=== PATIENT | female | born 1995 | race Caucasian/White ===

== ENCOUNTER 2021-02-19 06:52 | Emergency (ER) | payer MEDICAID, SELFPAY ==
[2021-02-19 07:22] VITALS: BP 127/79; BP 133/79; PULSE 71; PULSE 74; RESP 16; TEMP 36.9; O2SAT 100; O2SAT 97; BMI 40.3
--- NOTE | 2021-02-19 07:35 | ECG_ITS ---
Test Reason : CHECK CARDIAC STATUS Blood Pressure : / mmHG Vent. Rate : 067 BPM Atrial Rate : 067 BPM P-R Int : 174 ms QRS Dur : 074 ms QT Int : 422 ms P-R-T Axes : 069 048 027 degrees QTc Int : 445 ms Sinus rhythm with marked sinus arrhythmia Septal infarct , age undetermined Abnormal ECG When compared with ECG of 02-DEC-2019 13:07, No significant change was found Referred By: Fozia Randolph Electronically Signed By:BYRON SALDANA
--- NOTE | 2021-02-19 07:36 | ED.OVERDOSE ---
HPI - Overdose General Chief Complaint: Overdose Stated Complaint: SUBSTANCE ABUSE Time Seen by Provider: 02/19/21 07:34 Source: patient Mode of arrival: EMS History of Present Illness HPI Narrative: 25-year-old female with history of asthma, PTSD, depression, anxiety, ADHD presents via EMS after she called when she impulsively decided to by 1g of cocaine and snorted in addition to crushing 1 of her 150 mg Wellbutrin tablets and snorting that as well. Patient states that it was an impulsive action and that she was frustrated that everything was going well for others and normal for her. Patient sources that she was recently admitted in [place] and then has been having difficulty with her job understanding her struggles with her mental condition. Related Data Home Medications Medication Instructions Recorded Confirmed hydroxyzine HCl 10 mg tablet 10 mg PO TID PRN 02/19/21 02/19/21 trazodone 100 mg PO BEDTIME 02/19/21 02/19/21 Allergies Allergy/AdvReac Type Severity Reaction Status Date / Time No Known Allergies Allergy Verified 02/19/21 07:22 [No Known Allergies*] Review of Systems Review of Systems: Pertinent positives and negatives as stated in HPI 10 point review systems is otherwise negative. PMFSH Past Medical History Source: nursing notes reviewed Medical History Anxiety Depression PTSD (post-traumatic stress disorder) Substance abuse Social History Social History Alcohol intake: never Patient Tobacco Use Status: Current everyday Tobacco user Use of substances other than those prescribed or required for medical reasons: Yes Substance Use Type: Crack/Cocaine and Marijuana Advance Directives: No Advance Directives Information Provided: No Patient : No (unknown) Physical Exam Vital Signs: Vital Signs: Last Vital Signs Temp 98.4 F 02/19/21 07:22 Pulse 71 02/19/21 07:22 Resp 16 02/19/21 07:22 BP 133/79 02/19/21 07:22 Pulse Ox 100 02/19/21 07:22 Body Mass Index 40.3 VITAL SIGNS: Reviewed. GENERAL: Well developed, well nourished, in no acute distress. HEAD: Normocephalic/atraumatic EYES: PERRLA, EOMI EARS: Ext canals without abnormality NOSE: Nares patent bilateral OROPHARYNX: no oral lesions noted, posterior pharynx clear and non-erythematous without noted tonsillar enlargement/erythema/exudates NECK: Supple, no adenopathy LUNGS: Normal breath sounds. No adventitious sounds or accessory muscle use. SpO2<100> CARDIOVASCULAR: Regular rate and rhythm without noted murmurs ABDOMEN: Soft, non-tender, non-distended with bowel sounds. MUSCULOSKELETAL: No tenderness, deformities, or effusions noted on gross inspection. EXTREMITIES: No cyanosis, clubbing or edema. SKIN: Inspection of the skin reveals no rashes NEUROLOGIC: Alert and oriented x 4. Strength and sensation to light touch were grossly intact x 4. Course Course Course Narrative: 25-year-old female with history and clinical presentation consistent with precipitous decision to purchase and use 1 g of cocaine as well as 1 tablet of her 150 mg Wellbutrin by snorting. Although patient denies suicidal ideation there is significant concern regarding patient's decision making and in light of the fact that she did not reach out to any of her outpatient resources (psychiatrist, therapist). I discussed my concerns with the patient and she has agreed to speak with the crisis team and be further evaluated for any existing concerns. Patient is otherwise medically cleared, although pending further recommendations from poison Control. I discussed the case with the CARE team who also discussed with the on-call psychiatrist regarding patient's behaviors, presentation, and current state of mind and in agreement that patient does not meet criteria for imminent harm, but clearly have some concerns and patient has stated that she will follow-up with her outpatient resources. Patient has both a therapist as well as a psychiatrist and she was strongly encouraged to follow-up with them on Sunday morning. She is otherwise discharged in stable condition for follow-up. Patient continues to deny suicidal ideation. Reevaluation(s) Reevaluation #1: Patient placed in physician observation because the patient needed more time for evaluation by the care team. At the time observation was started the patient's vital signs were stable, patient is alert and oriented but slightly, neuro: Nonfocal, CV RRR, lungs clear Time: 08:49 Reevaluation #2: Position observation and. Patient seen and cleared by the care team. Plan is to follow-up with her therapist and psychiatrist. Any D, lungs clear, CV RRR are, abdominal nontender, neuro intact. Disposition is for home. Time: 11:51 MDM - Overdose Lab Data Result diagrams: 02/19/21 07:59 02/19/21 07:59 Labs: Lab Results 02/19/21 02/19/21 02/19/21 Range/Units 07:59 07:59 07:59 WBC 7.0 (4.8-10.8) X10*3/uL RBC 4.04 L (4.20-5.50) X10*6/uL Hgb 12.6 (12.0-16.0) g/dl Hct 35.5 L (37-47) % MCV 87.9 (80-98) fL MCH 31.2 (27.0-33.0) pg MCHC 35.5 H (31.0-35.0) g/dl RDW 11.5 (11.0-16.0) % Plt Count 310 (160-400) X10*3/uL MPV 9.6 (9.4-12.3) fL Immature Gran % (Auto) 0.3 (0.0-0.4) % Neut % (Auto) 60.0 (45-73) % Lymph % (Auto) 29.1 (20-40) % [place] % (Auto) 6.5 (2-11) % Eos % (Auto) 3.4 (0-4) % Baso % (Auto) 0.7 (0-2) % Lymph # (Auto) 2.0 (1.2-4.9) X10*3/uL [place] # (Auto) 0.5 (0.1-1.2) X10*3/uL Eos # (Auto) 0.2 (0.0-0.4) X10*3/uL Baso # (Auto) 0.1 (0.0-0.2) X10*3/uL Abs Immat Gran (auto) 0.02 (0.00-0.03) X10*3/uL Absolute Neuts (auto) 4.2 (2.0-8.3) X10*3/uL Absolute Nucleated RBC 0.000 (0.0-0.012) X10*3/uL Nucleated RBC % (auto) 0.0 (0.0-0.2) /100WBC Sodium 136 (135-145) mmol/L Potassium 3.6 (3.3-5.1) mmol/L Chloride 107 (96-108) mmol/L Carbon Dioxide 20 L (22-29) mmol/L Anion Gap 13 (12-20) BUN 12 (9-16) mg/dL Creatinine 0.59 (0.5-1.4) mg/dL Estim Creat Clear Calc 183.0 Estimated GFR > 60 Random Glucose 86 (60-115) mg/dL Calcium 9.2 (8.4-10.2) mg/dL Magnesium 1.8 (1.6-2.6) mg/dL Total Bilirubin 0.6 (0.0-1.0) mg/dL AST 12 (5-31) U/L ALT 7 (0-31) U/L Alkaline Phosphatase 50 (39-117) U/L Total Protein 6.2 L (6.5-8.0) g/dL Albumin 3.9 (3.5-5.0) g/dL Urine Color Urine Appearance Urine pH (5.0-8.0) Ur Specific [place] (1.005-1.025) Urine Protein (NEG-TRACE) MG/DL Urine Glucose (UA) (NEG) MG/DL Urine Ketones (NEG) MG/DL Urine Blood (NEG) Urine Nitrite (NEG) Ur Leukocyte Esterase (NEG) Urine RBC (0) /HPF Urine WBC (0-4) /HPF Ur Squamous Epith Cells /LPF Urine Bacteria /LPF Urine Mucus /LPF Urine Test (NEGATIVE) Salicylates < 5.0 L (15-30) mg/dL Urine Opiates Screen (Not Detect) Urine Fentanyl Screen (Not Detect) Acetaminophen < 1 (<30) mcg/mL Ur Barbiturates Screen (Not Detect) Ur Phencyclidine Scrn (Not Detect) Ur Amphetamines Screen (Not Detect) U Benzodiazepines Scrn (Not Detect) Urine Cocaine Screen (Not Detect) U Marijuana (THC) Screen (Not Detect) 02/19/21 02/19/21 02/19/21 Range/Units 07:59 07:59 07:59 WBC (4.8-10.8) X10*3/uL RBC (4.20-5.50) X10*6/uL Hgb (12.0-16.0) g/dl Hct (37-47) % MCV (80-98) fL MCH (27.0-33.0) pg MCHC (31.0-35.0) g/dl RDW (11.0-16.0) % Plt Count (160-400) X10*3/uL MPV (9.4-12.3) fL Immature Gran % (Auto) (0.0-0.4) % Neut % (Auto) (45-73) % Lymph % (Auto) (20-40) % [place] % (Auto) (2-11) % Eos % (Auto) (0-4) % Baso % (Auto) (0-2) % Lymph # (Auto) (1.2-4.9) X10*3/uL [place] # (Auto) (0.1-1.2) X10*3/uL Eos # (Auto) (0.0-0.4) X10*3/uL Baso # (Auto) (0.0-0.2) X10*3/uL Abs Immat Gran (auto) (0.00-0.03) X10*3/uL Absolute Neuts (auto) (2.0-8.3) X10*3/uL Absolute Nucleated RBC (0.0-0.012) X10*3/uL Nucleated RBC % (auto) (0.0-0.2) /100WBC Sodium (135-145) mmol/L Potassium (3.3-5.1) mmol/L Chloride (96-108) mmol/L Carbon Dioxide (22-29) mmol/L Anion Gap (12-20) BUN (9-16) mg/dL Creatinine (0.5-1.4) mg/dL Estim Creat Clear Calc Estimated GFR Random Glucose (60-115) mg/dL Calcium (8.4-10.2) mg/dL Magnesium (1.6-2.6) mg/dL Total Bilirubin (0.0-1.0) mg/dL AST (5-31) U/L ALT (0-31) U/L Alkaline Phosphatase (39-117) U/L Total Protein (6.5-8.0) g/dL Albumin (3.5-5.0) g/dL Urine Color STRAW Urine Appearance CLEAR Urine pH 7.0 (5.0-8.0) Ur Specific [place] <= 1.005 (1.005-1.025) Urine Protein NEG (NEG-TRACE) MG/DL Urine Glucose (UA) NEG (NEG) MG/DL Urine Ketones 15 (NEG) MG/DL Urine Blood TRACE (NEG) Urine Nitrite NEG (NEG) Ur Leukocyte Esterase NEG (NEG) Urine RBC 1-4 (0) /HPF Urine WBC 0-2 (0-4) /HPF Ur Squamous Epith Cells TRACE /LPF Urine Bacteria NONE /LPF Urine Mucus TRACE /LPF Urine Test NEGATIVE (NEGATIVE) Salicylates (15-30) mg/dL Urine Opiates Screen Not Detected (Not Detect) Urine Fentanyl Screen Not Detected (Not Detect) Acetaminophen (<30) mcg/mL Ur Barbiturates Screen Not Detected (Not Detect) Ur Phencyclidine Scrn Not Detected (Not Detect) Ur Amphetamines Screen Not Detected (Not Detect) U Benzodiazepines Scrn Not Detected (Not Detect) Urine Cocaine Screen POSITIVE H (Not Detect) U Marijuana (THC) Screen Not Detected (Not Detect) ECG Data Attestation: I personally reviewed and interpreted this ECG as follows: Prior ECG tracings: available for review (12/02/2019 no acute changes on comparison) Interpretation: Sinus rhythm with marked sinus arrhythmia, HR-67, no STEMI, CT/QRS/QTC are within normal limits. Discharge Plan Discharge Clinical Impression: Cocaine use, Accidental drug ingestion Patient Disposition: Home, Self-Care Instructions: Cocaine Abuse (ED) Additional Instructions: 1. Resume medications as prescribed and avoid all other illicit drug use to include cocaine. 2. Follow-up with your therapist and/or psychiatrist on Sunday morning for re-evaluation. Please do not hesitate to return to the emergency room should you start to feel overwhelmed, having thoughts of wanting to harm yourself. Prescriptions: No Action hydroxyzine HCl 10 mg Tablet 10 mg PO TID PRN (Reason: Anxiety) RF: 0 trazodone 100 mg PO BEDTIME RF: 0 Referrals: Physician,Unknown [Primary Care Provider] - 2 days
[2021-02-19 08:05] LABS: MANUAL DIFF FLAG NO
[2021-02-19 08:09] LABS: Appearance Urine CLEAR; Basophils Absolute Auto 0.1 X10*3/uL (0.0-0.2); Basophils Percent Auto 0.7 % (0-2); Color Urine STRAW; Eosinophils Absolute Auto 0.2 X10*3/uL (0.0-0.4); Eosinophils Percent Auto 3.4 % (0-4); Glucose Urine UA NEG (NEG); Hematocrit 35.5 % (37-47); Hemoglobin 12.6 g/dl (12.0-16.0); Imm Gran Abs Auto 0.02 X10*3/uL (0.00-0.03); Imm Gran Pct Auto 0.3 % (0.0-0.4); Leukocyte Esterase Urine NEG (NEG); Lymphocytes Percent Auto 29.1 % (20-40); Mean Corpuscular HGB Conc 35.5 g/dl (31.0-35.0); Mean Corpuscular Hemoglobin 31.2 pg (27.0-33.0); Mean Corpuscular Volume 87.9 fL (80-98); Mean Platelet Volume 9.6 fL (9.4-12.3); Monocytes Absolute Auto 0.5 X10*3/uL (0.1-1.2); Monocytes Percent Auto 6.5 % (2-11); Neutrophils Absolute Auto 4.2 X10*3/uL (2.0-8.3); Nitrite Urine NEG (NEG); Platelet Count 310 X10*3/uL (160-400); Red Blood Count 4.04 X10*6/uL (4.20-5.50); Red Cell Distribution Width 11.5 % (11.0-16.0); Specific Gravity - Urine <= 1.005 (1.005-1.025); UACC Culture Trigger NO; Urine Blood TRACE (NEG); Urine Ketones 15 MG/DL (NEG); Urine Protein NEG (NEG-TRACE)
[2021-02-19 08:12] LABS: UPreg QC Valid YES; Urine Pregnancy NEGATIVE (NEGATIVE)
[2021-02-19 08:18] LABS: Mucus Urine TRACE /LPF; Squamous Epithelial Cell Urine TRACE /LPF; WBC Urine 0-2 /HPF (0-4)
[2021-02-19 08:22] LABS: Alanine Aminotransferase 7 U/L (0-31); Albumin Level 3.9 g/dL (3.5-5.0); Alkaline Phosphatase 50 U/L (39-117); Anion Gap 13 (12-20); Aspartate Amino Transferase 12 U/L (5-31); Bilirubin Total 0.6 mg/dL (0.0-1.0); Blood Urea Nitrogen 12 mg/dL (9-16); Calcium 9.2 mg/dL (8.4-10.2); Carbon Dioxide 20 mmol/L (22-29); Chloride 107 mmol/L (96-108); Estimated Glomerular Filt Rate > 60; Glucose Random 86 mg/dL (60-115); Magnesium 1.8 mg/dL (1.6-2.6); Potassium 3.6 mmol/L (3.3-5.1); Sodium 136 mmol/L (135-145); Total Protein 6.2 g/dL (6.5-8.0)
[2021-02-19 08:23] LABS: Amphetamine Screen Urine Not Detected (Not Detect); Barbiturates, Urine Not Detected (Not Detect); Benzodiazepines Screen Urine Not Detected (Not Detect); Cannabinoid Screen Urine Not Detected (Not Detect); Cocaine Screen Urine POSITIVE (Not Detect); Fentanyl, urine Not Detected (Not Detect); Opiate Screen Urine Not Detected (Not Detect); Phencyclidine Screen Urine Not Detected (Not Detect)
[2021-02-19 08:26] LABS: Salicylate < 5.0 mg/dL (15-30)
[2021-02-19 08:29] LABS: Acetaminophen LAB < 1 mcg/mL (<30)
--- NOTE | 2021-02-19 09:15 | PC.NURSE ---
report taken from ed rn pt here for accidental overdose, denies si/hi. medically cleared, calm and cooperative. pleasant w this rn. awaiting crisis eval.
--- NOTE | 2021-02-19 10:01 | MHC.RECOVSUP ---
Recovery Support note: Patient is a 25 year old Turkish speaking female who presented to [facility] after using cocaine and wellbutrin. This check writer salesperson met with patient to discuss her substance use and recovery supports. Patient denies that her substance use is problematic. Patient reports she doesn't do this type of thing and that she doesn't know why she did. When asked what was going through her head when she did it, patient stated I've already told three people, I don't know why I need to keep repeating myself. Patient reports she does not use cocaine regularly and that the last time she used was over a month ago. Patient denies using other substances other than cocaine and cannabis. Discussed harm reduction with patient and the risk of cocaine having other substances in it. Patient acknowledged. Encouraged patient to reach out to family, friends or her therapist for support if she finds herself in a similar position. Patient acknowledged. Patient continues to deny SI/HI/AH/VH. Patient reports she does not need to be here and that she is not interested in any services or supports. Discussed case with CARE Team.
--- NOTE | 2021-02-19 13:15 | MHC.CARE ---
Pt is a single 25-year-old female who presented to [facility] today as a self referral from home after she reported using cocaine (nasal) as well as 1 tablet of her 150 mg Wellbutrin (nasal). Pt stated she was using cocaine socially and was curious to try snorting one pill of Wellbutrin. After doing this pt became nervous about how she felt and called poison control and then arrived at the ED. Pt denied that this ingestion was in any way a suicide attempt. Pt denied feeling suicidal prior to this and denied feeling?suicidal currently. 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 Pt stated that she was seen by crisis 1 month ago and admitted to [facility] due to mood dysregulation and suicidal ideation. She carries a hx dx of bipolar d/o and has hs of substance abuse. She was set up with providers at [facility] after her IPLOC in January and has been attending? appts? and taking the medications as prescribed. She indicated that the wellbutrin has actually been very helpful overall. Pt voiced her plan to d/c today so that she could get to work this afternoon. She was medically cleared and referred to the internal recovery team here at [facility] for added support of which she declined need/desire for referrals. Pt was referred to [facility] by ED provider due to concerns about pts risk. [facility] was unable to send a clinician and CARE team saw pt. Pt was not seeking further assessment and continued to state that she is not in crisis and does not need one . ?T/w met with pt who was lying down in bed dressed in hospital attire covered in a blanket. Pt was observed as tired but was alert to interview and oriented x4 with no observed attentive deficits or disruption in thought process.? Her eye contact was fair, and speech clear and audible. Pt rapport fair and voiced discontent in sharing this with person after person . Her judgment and insight appeared to be intact and she acknowledged that she acted impulsively. Pt reported that her mood was tired and affect congruent with noted irritability throughout. She denied depressive or anxiety currently and feels she already explained that earlier . She was presenting congruent with reported frustration at the screening?process but would answer questions when asked.? Thought process appeared WNL with reported?goal to d/c to go to work. She denied suicidal thoughts, plans or intent. She denies homicidal/aggressive thoughts, plans or intent. Pt denied current urges of self injury recently or currently. She denied AVH, delusions or distorted thinking. Pt reported that she had not slept the night prior or eaten due to her working and using cocaine which she stated she planned to work today and then sleep later. Pt was observed napping while awaiting care.? T/w reviewed with the ED provider and there was no grounds to hold it involuntarily based on her cocaine use and reported experimentation with one pill. Pt did not present with active mood dysregulation?to warrant more restrictive measures at this time.?Pt did seek help from the community and was medically cleared and continued to state that she used cocaine last night as a recreational event and not to cause harm to herself. She was irritated at providers asking about her prior crisis encounter as she feels it is not at all related , I am not suicidal and it was a? mistake . Pt did not present with acute mental health sxs nor was she seeking further tx. Pt did not present with sxs warranting involuntary intervention. T/w reviewed the case with on-call Psych [employer] Pilar Campos who supported that based on case review pt did not meet imminent risk for section 12. T/w then reviewed the case again with ED provider Dr Fozia Randolph who agreed to d/c pt and met with pt for this d/c process. T/w explained to pt that she should continue with her Outpatient providers and medication regime and reviewed the signs to indicate when she is in crisis. Pt is aware of how to seek crisis if/when needed and was given contact info. Pt agreed to seek help as needed and stated she would return as needed.? ??
== END 2021-02-19 12:14 | disposition home or self-care (01) ==
PROVIDERS: Emergency Provider Student in an Organized Health Care Education/Training Program
DX: T43.291A Poisoning by other antidepressants, accidental (unintentional), initial encounter (principal); Y92.009 Unspecified place in unspecified non-institutional (private) residence as the place of occurrence of the external cause; F14.10 Cocaine abuse, uncomplicated; F43.10 Post-traumatic stress disorder, unspecified; F41.9 Anxiety disorder, unspecified; F32.9 Major depressive disorder, single episode, unspecified; Z79.899 Other long term (current) drug therapy
CPT/HCPCS: 36415; 80053; 80143; 80179; 80307; 81001; 81025; 83735; 85025; 93005; 99285

== ENCOUNTER 2023-09-06 08:14 | Inpatient (IN) | payer OTHER, SELFPAY ==
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
[2023-09-06 08:47] VITALS: BP 132/78; PULSE 73; RESP 16; TEMP 36.9; O2SAT 96; BMI 26.6
--- NOTE | 2023-09-06 08:59 | PC.NURSE ---
patient refusing blood work at this time, became verbally agitated with staff upon attempt to obtain labs.
[2023-09-06 09:18] LABS: Amphetamine Screen Urine Not Detected (Not Detect); Barbiturates, Urine Not Detected (Not Detect); Benzodiazepines Screen Urine Not Detected (Not Detect); Cannabinoid Screen Urine POSITIVE (Not Detect); Cocaine Screen Urine Not Detected (Not Detect); Fentanyl, urine Not Detected (Not Detect); Opiate Screen Urine Not Detected (Not Detect); Phencyclidine Screen Urine Not Detected (Not Detect)
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
[2023-09-06 09:26] LABS: Appearance Urine Clear; Color Urine Yellow; Glucose Urine UA Negative (Negative); Leukocyte Esterase Urine Negative (Negative); Nitrite Urine Negative (Negative); Specific Gravity - Urine 1.025 (1.005-1.025); UMIC TRIGGER UACC YES; Urine Blood Small (1+) (Negative); Urine Ketones 40 mg/dL (Negative); Urine Protein Negative (Neg-Trace)
[2023-09-06 09:46] LABS: Bacteria Urine None Seen (None Seen); Hyaline Casts Urine 0-2 /LPF (0-2); RBC Urine 0-2 /HPF (0-2); WBC Urine 0-5 /HPF (0-5)
[2023-09-06 10:17] LABS: COVID-19 Test Negative (Negative); IDNOW Serial# 08D9AD1C
--- NOTE | 2023-09-06 10:34 | PC.NURSE ---
care team meeting with patient at this time
[2023-09-06 12:00] VITALS: RESP 16
--- NOTE | 2023-09-06 13:47 | MHC.CARE ---
Patient evaluated by the CARE Team, disposition inpatient psychiatric care. Providers updated.
[2023-09-06 14:50] VITALS: BP 137/71; PULSE 72; RESP 12; TEMP 36.1; O2SAT 96
[2023-09-06] MEDS: Acetaminophen 325 MG TABLET 650 MG PO (14:58)
--- NOTE | 2023-09-06 15:19 | PC.NURSE ---
continues to pace around common area at this time. aware of plan for inpatient psych, patient upset with this information stating that she wanted to just go home . requested tylenol for headache which she was provided with.
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
--- NOTE | 2023-09-06 19:02 | PC.NURSE ---
Pt refused flu vaccine at this time
[2023-09-07 00:16] LABS: UPreg QC Valid YES; Urine Pregnancy NEGATIVE (NEGATIVE)
[2023-09-07] MEDS: hydrOXYzine HCL 25 MG TABLET PO (04:36)
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
--- NOTE | 2023-09-07 07:55 | PC.NURSE ---
Pt was unable to sign legal paperwork from admission on 09/06/23 due to mental status
[2023-09-07] MEDS: Nicotine 21 MG PATCH.TD24 TRANSDERMA (08:35)
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
[2023-09-07] MEDS: Lurasidone HCl 40 MG TABLET PO (14:11)
[2023-09-07 18:00] VITALS: RESP 16
[2023-09-07] MEDS: LORazepam 1 MG TABLET PO (20:07)
[2023-09-07] MEDS: traZODone HCL 50 MG TABLET PO (20:07)
--- NOTE | 2023-09-07 21:09 | PC.NURSE ---
Odette was given Trazodone PO prn for sleep and was given Ativan PO prn for anxiety.
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
[2023-09-08 07:40] VITALS: BP 130/82; PULSE 109; RESP 16; TEMP 36.3; O2SAT 97
[2023-09-08] MEDS: Nicotine 21 MG PATCH.TD24 TRANSDERMA (09:31)
[2023-09-08] MEDS: Lurasidone HCl 40 MG TABLET PO (09:31)
[2023-09-08] MEDS: Acetaminophen 325 MG TABLET 650 MG PO (17:26)
[2023-09-08 20:30] VITALS: BP 135/89; PULSE 78; RESP 18; TEMP 36.6; O2SAT 98
[2023-09-08] MEDS: traZODone HCL 50 MG TABLET PO (20:47)
[2023-09-08] MEDS: LORazepam 1 MG TABLET PO (20:47)
[2023-09-09 07:43] VITALS: BP 134/101; PULSE 153; RESP 14; O2SAT 34
[2023-09-09 07:43] LABS: Estimated Average Glucose 105 mg/dL; Hemoglobin A1c % 5.3 % (<6.0)
[2023-09-09 07:46] LABS: Alanine Aminotransferase 13 U/L (0-31); Albumin Level 3.8 g/dL (3.5-5.0); Alkaline Phosphatase 68 U/L (39-117); Anion Gap 12 (12-20); Aspartate Amino Transferase 19 U/L (5-31); Bilirubin Total 0.5 mg/dL (0.0-1.0); Blood Urea Nitrogen 5 mg/dL (9-16); Carbon Dioxide 23 mmol/L (22-29); Chloride 110 mmol/L (96-108); Cholesterol 145 mg/dL (<200); Creatinine Clr Calc Pharmacy 146.6; Estimated Glomerular Filt Rate > 60; Glucose Fasting 91 mg/dL (60-99); HDL Cholesterol 38 mg/dL (>40); LDL Cholesterol Calculated 98 mg/dL (<100); Potassium 3.7 mmol/L (3.3-5.1); Sodium 141 mmol/L (135-145); Total Protein 6.3 g/dL (6.5-8.0); Triglycerides 45 mg/dL (<150)
[2023-09-09 07:48] VITALS: BP 135/91; PULSE 138
[2023-09-09 08:09] LABS: TSH reflex Free T4 0.29 uIU/mL (0.32-4.0)
[2023-09-09] MEDS: Nicotine 21 MG PATCH.TD24 TRANSDERMA (08:32)
[2023-09-09] MEDS: Lurasidone HCl 40 MG TABLET PO (08:32)
[2023-09-09 08:45] LABS: Free T4 (Free Thyroxine) 1.08 ng/dL (0.71-1.85)
[2023-09-09] MEDS: LORazepam 1 MG TABLET PO ×2 (09:18→21:25)
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
[2023-09-09] MEDS: traZODone HCL 50 MG TABLET PO (21:25)
[2023-09-09] MEDS: Milk of Magnesia 30 ML ORAL.SUSP PO (21:25)
[2023-09-09 22:00] VITALS: BP 121/78; PULSE 85; RESP 18; TEMP 37.1; O2SAT 97
--- NOTE | 2023-09-10 01:20 | PC.NURSE ---
Mariela is noted to be pacing the unit and signing loudly at times. She stated that she has fought really long and hard to not be on medications and then I end up here because I'm crazy, I'm crazy. Can you just give me my medications so I can keep walking. You know it's kind of frustrating to have you standing here like your interested in what I'm saying. No one ever believes me or listens to me. Wait you actually really do care how I feel. Thank you so much for actually listening to me. I feel better knowing you are my nurse toro patient accepted Ativan and Trazodone at [facility] with positive effect. monitor for safety, reassure and validate as needed, continue Plan of Care
[2023-09-10 07:50] VITALS: BP 124/72; PULSE 88; RESP 18; TEMP 35.9; O2SAT 98
[2023-09-10] MEDS: Nicotine 21 MG PATCH.TD24 TRANSDERMA (09:20)
[2023-09-10] MEDS: Lurasidone HCl 40 MG TABLET PO (09:21)
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
[2023-09-10] MEDS: LORazepam 1 MG TABLET PO (18:07)
[2023-09-10 22:00] VITALS: BP 116/74; PULSE 95; RESP 18; TEMP 36.4; O2SAT 96
[2023-09-10] MEDS: Milk of Magnesia 30 ML ORAL.SUSP PO (22:01)
[2023-09-10] MEDS: traZODone HCL 50 MG TABLET PO (22:01)
[2023-09-11 06:00] VITALS: BP 128/80; PULSE 98; RESP 20; TEMP 36.3; O2SAT 98
[2023-09-11] MEDS: LORazepam 1 MG TABLET PO ×2 (06:39→20:09)
[2023-09-11] MEDS: Albuterol Sulfate 90 MCG 8 GM INHALER 2 PUFF INHALE (06:39)
[2023-09-11] MEDS: guaiFENesin DM 200/20/10 ML 10 ML SYRUP PO ×2 (06:39→20:08)
[2023-09-11 07:03] LABS: Influenza A PCR NEGATIVE (Negative); Influenza B PCR NEGATIVE (Negative); Resp Syncy Virus RNA Qual PCR NEGATIVE (Negative); SARS COV2 PCR INHOUSE NEGATIVE (Negative)
[2023-09-11 07:44] VITALS: BP 112/68; PULSE 94; RESP 16; TEMP 36.3; O2SAT 97
[2023-09-11] MEDS: Lurasidone HCl 40 MG TABLET PO (08:16)
[2023-09-11] MEDS: Lithium Carbonate ER 450 MG TABLET.ER PO ×2 (12:55→20:09)
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
[2023-09-11 19:40] VITALS: BP 145/68; PULSE 86; RESP 16; TEMP 36.3; O2SAT 94
[2023-09-11] MEDS: traZODone HCL 50 MG TABLET PO (20:09)
--- NOTE | 2023-09-11 20:10 | PC.NURSE ---
Odette was given Trazodone PO prn for sleep, Ativan PO prn for anxiety 02/25, and Robitussin PO prn for a cough
[2023-09-12] MEDS: guaiFENesin DM 200/20/10 ML 10 ML SYRUP PO ×2 (04:22→23:07)
--- NOTE | 2023-09-12 04:23 | PC.NURSE ---
Odette reporting some congestion and cough, given Robitussin PO prn
[2023-09-12 07:35] VITALS: BP 116/66; PULSE 94; RESP 14; TEMP 36.2; O2SAT 98
[2023-09-12] MEDS: Lurasidone HCl 40 MG TABLET PO (08:24)
[2023-09-12] MEDS: Nicotine 21 MG PATCH.TD24 TRANSDERMA (08:25)
[2023-09-12] MEDS: Lithium Carbonate ER 450 MG TABLET.ER PO (08:28)
[2023-09-12] MEDS: Sertraline HCL 25 MG TABLET 12.5 MG PO (12:36)
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
[2023-09-12 20:15] VITALS: BP 126/68; PULSE 98; RESP 16; TEMP 36.1; O2SAT 99
[2023-09-12] MEDS: Doxazosin Mesylate 1 MG TABLET 0.5 MG PO (21:19)
[2023-09-12] MEDS: LORazepam 1 MG TABLET PO (21:20)
[2023-09-12] MEDS: traZODone HCL 50 MG TABLET PO (21:20)
[2023-09-12] MEDS: Albuterol Sulfate 90 MCG 8 GM INHALER 2 PUFF INHALE (23:07)
[2023-09-13 06:00] VITALS: BP 129/81; PULSE 94; RESP 16; O2SAT 95
[2023-09-13 07:00] VITALS: BMI 35.6
[2023-09-13] MEDS: Lurasidone HCl 40 MG TABLET PO (08:11)
[2023-09-13] MEDS: Sertraline HCL 25 MG TABLET 12.5 MG PO (08:11)
[2023-09-13] MEDS: Nicotine 21 MG PATCH.TD24 TRANSDERMA (08:11)
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
[2023-09-13] MEDS: traZODone HCL 50 MG TABLET PO (19:58)
[2023-09-13] MEDS: Doxazosin Mesylate 1 MG TABLET PO (19:58)
[2023-09-13] MEDS: LORazepam 1 MG TABLET PO (19:58)
[2023-09-13] MEDS: OLANZapine ODT 10 MG TAB.RAPDIS TRANSLINGU (19:58)
[2023-09-13 20:30] VITALS: BP 141/76; RESP 18; TEMP 36.6; O2SAT 98
[2023-09-14 06:00] VITALS: BP 103/61; PULSE 77; RESP 18; TEMP 36.7; O2SAT 98
[2023-09-14] MEDS: Nicotine 21 MG PATCH.TD24 TRANSDERMA (08:58)
[2023-09-14] MEDS: Lurasidone HCl 40 MG TABLET PO (08:58)
[2023-09-14] MEDS: Sertraline HCL 25 MG TABLET PO (08:58)
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
[2023-09-14 19:50] VITALS: BP 127/81; PULSE 93; RESP 20; TEMP 37.7; O2SAT 98
[2023-09-14] MEDS: LORazepam 1 MG TABLET PO (21:53)
[2023-09-14] MEDS: traZODone HCL 50 MG TABLET PO (21:53)
[2023-09-14] MEDS: Doxazosin Mesylate 1 MG TABLET PO (21:53)
[2023-09-14] MEDS: Milk of Magnesia 30 ML ORAL.SUSP PO (21:56)
[2023-09-14] MEDS: Albuterol Sulfate 90 MCG 8 GM INHALER 2 PUFF INHALE (23:59)
[2023-09-14] MEDS: hydrOXYzine HCL 25 MG TABLET PO (23:59)
[2023-09-15 06:00] VITALS: BP 104/66; PULSE 86; RESP 16; TEMP 37.1; O2SAT 98
[2023-09-15] MEDS: Nicotine 21 MG PATCH.TD24 TRANSDERMA (08:41)
[2023-09-15] MEDS: Sertraline HCL 25 MG TABLET PO (08:42)
[2023-09-15] MEDS: Lurasidone HCl 40 MG TABLET PO (08:42)
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
[2023-09-15 20:00] VITALS: BP 128/81; PULSE 98; RESP 17; TEMP 36.4; O2SAT 96
[2023-09-15] MEDS: Milk of Magnesia 30 ML ORAL.SUSP PO (20:02)
[2023-09-15] MEDS: traZODone HCL 50 MG TABLET PO (22:05)
[2023-09-15] MEDS: Doxazosin Mesylate 1 MG TABLET PO (22:06)
[2023-09-15] MEDS: LORazepam 1 MG TABLET PO (22:06)
[2023-09-16 07:40] VITALS: BP 114/66; PULSE 87; RESP 20; TEMP 36.6; O2SAT 98
[2023-09-16] MEDS: Nicotine 21 MG PATCH.TD24 TRANSDERMA (08:50)
[2023-09-16] MEDS: Lurasidone HCl 40 MG TABLET PO (08:51)
[2023-09-16] MEDS: Sertraline HCL 25 MG TABLET PO (08:51)
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
[2023-09-16] MEDS: Gabapentin 100 MG CAPSULE PO ×2 (14:25→22:05)
[2023-09-16 21:55] VITALS: BP 122/81; PULSE 75; RESP 16; TEMP 36.3; O2SAT 100
[2023-09-16] MEDS: LORazepam 1 MG TABLET PO (22:05)
[2023-09-16] MEDS: Doxazosin Mesylate 1 MG TABLET PO (22:05)
[2023-09-16] MEDS: traZODone HCL 50 MG TABLET PO (22:05)
--- NOTE | 2023-09-16 22:07 | PC.NURSE ---
Ativan given PO prn for anxiety 10/25
[2023-09-17 07:40] VITALS: BP 114/90; PULSE 103; RESP 16; TEMP 36.2; O2SAT 97
[2023-09-17] MEDS: Gabapentin 100 MG CAPSULE PO (08:54)
[2023-09-17] MEDS: Lurasidone HCl 40 MG TABLET PO (08:55)
[2023-09-17] MEDS: Nicotine 21 MG PATCH.TD24 TRANSDERMA (08:56)
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
[2023-09-17 22:50] VITALS: BP 131/85; PULSE 99; RESP 16; TEMP 36.4; O2SAT 98
[2023-09-17] MEDS: Milk of Magnesia 30 ML ORAL.SUSP PO (22:53)
[2023-09-17] MEDS: traZODone HCL 50 MG TABLET PO (22:54)
[2023-09-17] MEDS: LORazepam 1 MG TABLET PO (22:54)
[2023-09-17] MEDS: Doxazosin Mesylate 1 MG TABLET PO (22:54)
--- NOTE | 2023-09-17 23:55 | PC.NURSE ---
Ativan was given PO prn for anxiety 09/25. Patient given Milk of Mag PO prn for reported constipation for 2 days.
[2023-09-18] MEDS: traZODone HCL 50 MG TABLET PO ×3 (01:18→22:09)
[2023-09-18] MEDS: hydrOXYzine HCL 25 MG TABLET PO ×2 (01:18→22:08)
[2023-09-18 07:42] VITALS: BP 106/59; PULSE 69; RESP 12; TEMP 36.3; O2SAT 92
[2023-09-18] MEDS: Nicotine 21 MG PATCH.TD24 TRANSDERMA (09:42)
[2023-09-18] MEDS: Lurasidone HCl 40 MG TABLET PO (09:50)
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
[2023-09-18 22:06] VITALS: BP 147/92; PULSE 105; RESP 16; TEMP 36.6; O2SAT 99
[2023-09-18] MEDS: LORazepam 1 MG TABLET PO (22:08)
[2023-09-18] MEDS: Doxazosin Mesylate 1 MG TABLET PO (22:08)
[2023-09-18] MEDS: OLANZapine ODT 10 MG TAB.RAPDIS TRANSLINGU (22:09)
[2023-09-19] MEDS: Lurasidone HCl 40 MG TABLET PO (08:47)
[2023-09-19] MEDS: Nicotine 21 MG PATCH.TD24 TRANSDERMA (08:47)
== END 2023-09-19 11:45 | disposition home or self-care (01) | DRG 885 ==
LOC: HO.ED 09:47 → HO.PADLT16 17:00
PROVIDERS: Clinical Nurse Specialist Psychiatric/Mental Health; Social Worker; Admitting Provider Registered Nurse; Emergency Provider Emergency Medicine; Visit Provider Psychiatry & Neurology Psychiatry
DX: F31.64 Bipolar disorder, current episode mixed, severe, with psychotic features (principal); R45.851 Suicidal ideations; R45.850 Homicidal ideations; Z59.819 Housing instability, housed unspecified; F43.10 Post-traumatic stress disorder, unspecified; Z20.822 Contact with and (suspected) exposure to COVID-19; Z79.899 Other long term (current) drug therapy
CPT/HCPCS: 0241U; 36415; 73110; 80053; 80061; 80307; 81001; 81025; 83036; 84439; 84443; 87635; 99285; S9485

== ENCOUNTER → 2023-09-06 16:51 | Outpatient (BNV) | payer OTHER, SELFPAY | PROVIDERS: Admitting Provider Registered Nurse; Emergency Provider Emergency Medicine; Visit Provider Clinical Nurse Specialist Psychiatric/Mental Health | DX: F31.64 Bipolar disorder, current episode mixed, severe, with psychotic features (principal) | CPT/HCPCS: 90792; 99231; 99232; 99239 ==

== ENCOUNTER 2023-09-22 14:33 | Inpatient (IN) | payer MEDICAID, OTHER, SELFPAY ==
--- NOTE | ~2023-09-22 | US_ITS ---
EXAMINATION: US PELVIS CLINICAL INFORMATION: Vaginal pressure/pelvic pain LMP: Last week COMPARISON: None available. TECHNIQUE: Ultrasound of the pelvis is performed using both transabdominal and transvaginal transducers along with Doppler. Transvaginal imaging is performed due to inadequate visualization transabdominally. FINDINGS: Uterus: The uterus is anteverted and measures 7.2 x 2.9 x 4.6 cm. Several echogenic foci are seen within the myometrium. These are of doubtful clinical significance. The endometrial thickness 0.1 cm. Adnexa: Both ovaries are visualized. There is normal color flow to the adnexa. There is no ovarian torsion. There is no pelvic ascites or fluid collection. Right ovary measures 1.5 x 3.0 x 1.0cm. Volume 2.4 mL. Left ovary measures 1.6 x 2.7 x 1.2 cm. Volume 2.7 mL US/US pelvic and transvaginal IMPRESSION: 1. Several echogenic foci are seen within the myometrium. These are of doubtful clinical significance. 2. Normal ovaries.
--- NOTE | ~2023-09-22 | XR_ITS ---
EXAMINATION: XR PELVIS CLINICAL INFORMATION: Foreign body/tampon COMPARISON: None available. TECHNIQUE: AP view of the pelvis. FINDINGS: Pathognomonic findings of retained tampon. Nonspecific bowel pattern. There is suggestion of prominent pelvic soft tissue density phleboliths. Bony structures are intact. XR/XR pelvis 1-2V IMPRESSION: No identifiable tampon. Question prominent pelvic soft tissue density. Consider pelvic ultrasound.
[2023-09-22] MEDS: diphenhydrAMINE HCL 50 MG/ML VIAL IM (14:45)
[2023-09-22] MEDS: Haloperidol Lactate 5 MG/ML VIAL IM ×2 (14:45→15:01)
[2023-09-22] MEDS: LORazepam 2 MG/ML VIAL IM (14:45)
[2023-09-22 15:00] VITALS: BP 117/69; PULSE 102; RESP 18; TEMP 37.1; O2SAT 97
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
[2023-09-22 15:07] VITALS: RESP 16; BMI 32.3
[2023-09-22 15:15] VITALS: BP 108/64; PULSE 96; RESP 16; TEMP 36.9; O2SAT 97
[2023-09-22 15:30] VITALS: BP 109/57; PULSE 96; RESP 16; TEMP 36.8; O2SAT 98
--- NOTE | 2023-09-22 15:38 | PC.NURSE ---
Addendum entered by Adri Rai 09/22/23 16:31: Patient's Aunt would like patient to call her when she wakes up ([phone]) Original Note: Patient mom: Ligia: [phone] requesting to be called with any changes in plan of care
[2023-09-22 15:57] LABS: MANUAL DIFF FLAG NO
[2023-09-22 16:04] LABS: Basophils Absolute Auto 0.1 X10*3/uL (0.0-0.2); Basophils Percent Auto 0.7 % (0-2); Eosinophils Absolute Auto 0.4 X10*3/uL (0.0-0.4); Eosinophils Percent Auto 4.7 % (0-4); Hematocrit 34.4 % (37.0-47.0); Hemoglobin 11.7 g/dl (12.0-16.0); Imm Gran Abs Auto 0.01 X10*3/uL (0.00-0.03); Imm Gran Pct Auto 0.1 % (0.0-0.4); Lymphocytes Absolute Auto 1.8 X10*3/uL (1.2-4.9); Lymphocytes Percent Auto 22.1 % (20-40); Mean Corpuscular Hemoglobin 28.6 pg (27.0-33.0); Mean Corpuscular Volume 84.1 fL (80.0-98.0); Mean Platelet Volume 9.8 fL (9.4-12.3); Monocytes Absolute Auto 0.5 X10*3/uL (0.1-1.2); Monocytes Percent Auto 5.7 % (2-11); Neutrophils Absolute Auto 5.5 x10*3/uL (2.0-8.3); Neutrophils Percent Auto 66.7 % (45-73); Platelet Count 267 X10*3/uL (160-400); Red Blood Count 4.09 X10*6/uL (4.20-5.50); Red Cell Distribution Width 14.2 % (11.0-16.0); White Blood Count 8.2 X10*3/uL (4.8-10.8)
[2023-09-22 16:16] LABS: COVID-19 Test Negative (Negative); IDNOW Serial# 08D9AD1C
[2023-09-22 16:17] LABS: Alanine Aminotransferase 11 U/L (0-31); Albumin Level 3.6 g/dL (3.5-5.0); Alkaline Phosphatase 61 U/L (39-117); Anion Gap 8 (12-20); Aspartate Amino Transferase 14 U/L (5-31); Bilirubin Total 0.3 mg/dL (0.0-1.0); Blood Urea Nitrogen 7 mg/dL (9-16); Calcium 8.5 mg/dL (8.4-10.2); Carbon Dioxide 23 mmol/L (22-29); Chloride 111 mmol/L (96-108); Creatinine Clr Calc Pharmacy 163.7; Estimated Glomerular Filt Rate > 60; Ethanol < 10 mg/dL; Glucose Random 91 mg/dL (60-115); Potassium 3.4 mmol/L (3.3-5.1); Sodium 139 mmol/L (135-145)
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
--- NOTE | 2023-09-22 17:40 | PC.NURSE ---
Patient remains sleeping, respirations even and unlabored, no apparent distress at this time
[2023-09-22 18:43] LABS: HCG Quantitative < 2 mIU/mL
[2023-09-23 00:05] VITALS: BP 108/67; PULSE 75; RESP 16; TEMP 36.8; O2SAT 98
[2023-09-23] MEDS: Doxazosin Mesylate 1 MG TABLET PO ×2 (00:06→19:56)
[2023-09-23] MEDS: traZODone HCL 50 MG TABLET PO ×2 (00:06→19:56)
--- NOTE | 2023-09-23 00:42 | PC.NURSE ---
Assumed care of pt at 1900. PT sleeping for until 12am, vitals obtained and are stable. PT denies SI/HI notes she has a history of delusions. Per med rec pt takes depakote, not lab ordered. Med held until lab results. PT took all other night medications without issues. Provide urine cup for sample as pt needed to use the bathroom. PT returned with empty cup noting she forgot to provide a sample. Provide PT with water and encouraged her to drink periodically. Plan of care ongoing.
--- NOTE | 2023-09-23 03:30 | PC.NURSE ---
Spoke with lab- chemistry labs down. labs being sent to [facility]
--- NOTE | 2023-09-23 07:14 | PC.NURSE ---
Assumed care of patient at 0645, patient appears to be sleeping, respirations even and unlabored. Continue plan of care for care team [place]
[2023-09-23 08:11] LABS: Valproate < 2.8 mcg/mL (50.0-100.0)
[2023-09-23] MEDS: Divalproex Sodium 500 MG TABLET.DR PO ×2 (08:12→19:56)
[2023-09-23] MEDS: Lurasidone HCl 40 MG TABLET PO (08:12)
[2023-09-23] MEDS: Nicotine 21 MG PATCH.TD24 TRANSDERMA (11:24)
[2023-09-23] MEDS: LORazepam 1 MG TABLET PO (11:24)
[2023-09-23] MEDS: hydrOXYzine HCL 25 MG TABLET PO (11:24)
--- NOTE | 2023-09-23 12:13 | PC.NURSE ---
Late entry: Around 1215 patient began increasing in activity, ambulating around BH pod, singing, occasionally yelling, rambling sentences with no linear thought process present. Patient was offered PRN ativan and hydroxyzine with positive effect
--- NOTE | 2023-09-23 14:45 | MHC.CARE ---
Patient evaluated by the CARE Team and disposition is inpatient psychiatric treatment. ED provider, Dr. Mchugh updated.
[2023-09-23 15:37] VITALS: PULSE 88; RESP 16; O2SAT 97
[2023-09-23 16:54] VITALS: BP 110/89; PULSE 92; RESP 16; TEMP 36.8; O2SAT 99
--- NOTE | 2023-09-23 19:14 | PC.NURSE ---
patient seems mildly agitated in milieu, talking on phone, asking to leave, pressured speech. patient using filithy language in milieu, redirected. continues on phone.
[2023-09-23] MEDS: LORazepam 1 MG TABLET 2 MG PO (19:56)
--- NOTE | 2023-09-24 | ECG_ITS ---
Test Reason : qtc pronlogation ruleout Blood Pressure : / mmHG Vent. Rate : 098 BPM Atrial Rate : 098 BPM P-R Int : 142 ms QRS Dur : 068 ms QT Int : 348 ms P-R-T Axes : 080 078 051 degrees QTc Int : 444 ms Normal sinus rhythm Normal ECG When compared with ECG of 19-FEB-2021 07:47, No significant changes seen Referred By: Flakito Mchugh Electronically Signed By:Solomon Chadwick
[2023-09-24 06:24] VITALS: RESP 16
--- NOTE | 2023-09-24 07:14 | PC.NURSE ---
Assumed care of patient at 0645, patient appears to be sleeping, respirations even and unlabored, no apparent distress noted at this time. Continue plan of care for inpatient bedsearch
[2023-09-24] MEDS: Divalproex Sodium 500 MG TABLET.DR PO ×2 (08:57→20:21)
[2023-09-24] MEDS: Lurasidone HCl 40 MG TABLET PO (08:57)
[2023-09-24] MEDS: LORazepam 1 MG TABLET PO (08:57)
[2023-09-24 09:04] LABS: Appearance Urine Clear; Color Urine Yellow; Glucose Urine UA Negative (Negative); Leukocyte Esterase Urine Negative (Negative); Nitrite Urine Negative (Negative); PH 6.5 (5.0-9.0); Specific Gravity - Urine 1.025 (1.005-1.025); UPreg QC Valid YES; Urine Blood Negative (Negative); Urine Ketones Negative (Negative); Urine Pregnancy NEGATIVE (NEGATIVE); Urine Protein Negative (Neg-Trace)
[2023-09-24 09:09] LABS: Amphetamine Screen Urine Not Detected (Not Detect); Barbiturates, Urine Not Detected (Not Detect); Benzodiazepines Screen Urine Not Detected (Not Detect); Cannabinoid Screen Urine POSITIVE (Not Detect); Cocaine Screen Urine Not Detected (Not Detect); Fentanyl, urine Not Detected (Not Detect); Opiate Screen Urine Not Detected (Not Detect); Phencyclidine Screen Urine Not Detected (Not Detect)
[2023-09-24 09:25] VITALS: BP 136/76; PULSE 100; RESP 18; TEMP 37.1; O2SAT 97
[2023-09-24 15:41] VITALS: BP 115/66; PULSE 100; RESP 16; TEMP 36.8; O2SAT 98
--- NOTE | 2023-09-24 19:12 | PC.NURSE ---
patient appears to remain at rest at present respirations are even and unlabored patient appears in no distress.
[2023-09-24] MEDS: Doxazosin Mesylate 1 MG TABLET PO (20:21)
[2023-09-24] MEDS: traZODone HCL 50 MG TABLET PO (20:21)
[2023-09-24] MEDS: hydrOXYzine HCL 25 MG TABLET PO (22:48)
[2023-09-25 05:54] VITALS: RESP 16
[2023-09-25 07:55] VITALS: BP 122/59; PULSE 92; RESP 12; TEMP 36.4; O2SAT 98
[2023-09-25] MEDS: Lurasidone HCl 40 MG TABLET PO (08:11)
[2023-09-25] MEDS: LORazepam 1 MG TABLET PO (08:12)
[2023-09-25] MEDS: Divalproex Sodium 500 MG TABLET.DR PO ×2 (08:12→21:19)
[2023-09-25] MEDS: hydrOXYzine HCL 25 MG TABLET PO (08:13)
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
[2023-09-25] MEDS: Nicotine 21 MG PATCH.TD24 TRANSDERMA (09:20)
--- NOTE | 2023-09-25 09:30 | PC.NURSE ---
PT MED X 1 WITH ATIVAN 1MG PO AND HYDROXZINE 25MG PO X 1 FOR INCREASE ANXIETY/AGITATION. PT REQUESTED/GIVEN NICOTINE PATCH 21MG TO R UPPER CHEST.
[2023-09-25] MEDS: Divalproex Sodium ER 500 MG TAB.ER.24H PO (13:49)
[2023-09-25] MEDS: OLANZapine 5 MG TABLET PO (13:49)
--- NOTE | 2023-09-25 13:54 | PC.NURSE ---
MED X 1 WITH ZYPREX FOR AGITATION.
[2023-09-25 15:10] VITALS: BP 112/67; PULSE 102; RESP 19; TEMP 36.8; O2SAT 98
--- NOTE | 2023-09-25 17:06 | PC.NURSE ---
RN TO RN REPORT GIVEN TO JOÃO. PT AWARE OF PLAN OF CARE FOR TRANSFER TO .
[2023-09-25] MEDS: traZODone HCL 50 MG TABLET PO ×2 (21:19→22:55)
[2023-09-25] MEDS: Doxazosin Mesylate 1 MG TABLET PO (21:19)
[2023-09-26] MEDS: OLANZapine 5 MG TABLET PO (00:56)
[2023-09-26] MEDS: traZODone HCL 50 MG TABLET PO ×2 (00:56→20:19)
--- NOTE | 2023-09-26 01:40 | PC.NURSE ---
Admission Note Mariela Snyder, a 28 year-old female was presented to [facility] ED by her parents with a chief complaint of paris and psychosis. Patient was chemically and physically restrained in ED due to combative behavior. Patient was discharged from [facility] on 09/19/23 after spending 10 days in the unit. Patient is diagnosed with? Bipolar disorder, current episode mixed, severe, with psychotic features and PTSD. Patient got intrahospital transfer to on 09/25/23 at 1745 on CV. Patient is Alert & Oriented x 4 but lacks insight of her situation. Impaired judgment and impulse control.Thought content disorganized and thought process tangential. Patient is compliant with the admission process but requires constant redirection due to limited attention span. Appears anxious, speech is clear, good eye contact, no skin issues observed or reported, physical appearance neat, and ambulates independently. Mood is euthymic and her affect aligns with her mood.? Med rec completed in ED, patient compliant with her medication, and takes her meds whole with water. Patient reported her sleep and appetite are great. VSS.?Denied SI/HI/AVH and contracted for safety. Patient is on a 15 minute check. ?
[2023-09-26 07:50] VITALS: BP 134/83; PULSE 96; RESP 20; TEMP 36.4; O2SAT 94
[2023-09-26] MEDS: Divalproex Sodium 500 MG TABLET.DR PO ×2 (08:47→20:19)
[2023-09-26] MEDS: Lurasidone HCl 40 MG TABLET PO (08:47)
[2023-09-26] MEDS: Nicotine 21 MG PATCH.TD24 TRANSDERMA (08:55)
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
[2023-09-26] MEDS: risperiDONE 1 MG TABLET PO (16:19)
[2023-09-26] MEDS: Lurasidone HCl 20 MG TABLET PO (16:19)
[2023-09-26 20:15] VITALS: BP 107/60; PULSE 96; RESP 16; TEMP 36.2; O2SAT 99
[2023-09-26] MEDS: traZODone HCL 50 MG TABLET 150 MG PO (20:18)
[2023-09-26] MEDS: risperiDONE 2 MG TABLET PO (20:19)
[2023-09-26] MEDS: Doxazosin Mesylate 1 MG TABLET PO (20:19)
[2023-09-26] MEDS: LORazepam 1 MG TABLET PO (20:21)
[2023-09-27 06:00] VITALS: RESP 18
[2023-09-27] MEDS: Lurasidone HCl 20 MG TABLET 60 MG PO (09:14)
[2023-09-27] MEDS: Divalproex Sodium 500 MG TABLET.DR PO ×2 (09:14→21:00)
[2023-09-27] MEDS: LORazepam 1 MG TABLET PO (11:18)
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
[2023-09-27] MEDS: risperiDONE 2 MG TABLET PO ×2 (14:40→20:50)
[2023-09-27] MEDS: Doxazosin Mesylate 1 MG TABLET PO (20:50)
[2023-09-27] MEDS: traZODone HCL 50 MG TABLET 150 MG PO (20:50)
[2023-09-28 08:25] VITALS: RESP 18
[2023-09-28] MEDS: Lurasidone HCl 20 MG TABLET 60 MG PO (09:42)
[2023-09-28] MEDS: Divalproex Sodium 500 MG TABLET.DR PO ×2 (09:42→19:59)
[2023-09-28] MEDS: risperiDONE 2 MG TABLET PO ×2 (09:42→19:56)
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
[2023-09-28 18:00] VITALS: BP 103/62; PULSE 91; RESP 18; TEMP 36.4; O2SAT 97
[2023-09-28] MEDS: Doxazosin Mesylate 1 MG TABLET PO (19:56)
[2023-09-28] MEDS: traZODone HCL 50 MG TABLET 150 MG PO (19:57)
[2023-09-29 08:00] VITALS: BP 109/68; PULSE 85; RESP 16; TEMP 36.2; O2SAT 97
[2023-09-29] MEDS: Divalproex Sodium 500 MG TABLET.DR PO ×2 (08:36→21:03)
[2023-09-29] MEDS: risperiDONE 2 MG TABLET PO ×2 (08:36→21:03)
[2023-09-29] MEDS: Lurasidone HCl 20 MG TABLET 60 MG PO (08:36)
[2023-09-29] MEDS: LORazepam 1 MG TABLET PO (09:18)
[2023-09-29 18:00] VITALS: BP 108/73; PULSE 89; RESP 16; TEMP 36.3; O2SAT 99
[2023-09-29] MEDS: traZODone HCL 50 MG TABLET 150 MG PO (21:03)
[2023-09-29] MEDS: Doxazosin Mesylate 1 MG TABLET PO (21:04)
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
[2023-09-29] MEDS: LORazepam 0.5 MG TABLET PO (22:14)
[2023-09-29] MEDS: traZODone HCL 50 MG TABLET PO (22:14)
[2023-09-30] MEDS: Lurasidone HCl 20 MG TABLET 60 MG PO (08:46)
[2023-09-30] MEDS: Divalproex Sodium 500 MG TABLET.DR PO ×2 (08:46→20:14)
[2023-09-30] MEDS: risperiDONE 2 MG TABLET PO ×2 (08:46→20:14)
[2023-09-30 09:00] VITALS: BP 114/75; PULSE 84; RESP 16; TEMP 36.7; O2SAT 99
[2023-09-30 18:00] VITALS: BP 112/69; PULSE 86; RESP 18; TEMP 36.7; O2SAT 98
[2023-09-30] MEDS: traZODone HCL 50 MG TABLET 150 MG PO (20:13)
[2023-09-30] MEDS: Doxazosin Mesylate 1 MG TABLET PO (20:14)
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
[2023-10-01] MEDS: LORazepam 0.5 MG TABLET PO ×2 (02:29→22:02)
[2023-10-01] MEDS: traZODone HCL 50 MG TABLET PO (02:29)
[2023-10-01 06:00] VITALS: RESP 18
[2023-10-01] MEDS: Divalproex Sodium 500 MG TABLET.DR PO ×2 (08:58→22:01)
[2023-10-01] MEDS: risperiDONE 2 MG TABLET PO (08:59)
[2023-10-01] MEDS: Lurasidone HCl 20 MG TABLET 60 MG PO (08:59)
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
[2023-10-01] MEDS: hydrOXYzine HCL 25 MG TABLET PO (11:46)
[2023-10-01 18:00] VITALS: BP 113/76; PULSE 110; TEMP 36.8; O2SAT 99
[2023-10-01] MEDS: Doxazosin Mesylate 1 MG TABLET PO (22:00)
[2023-10-01] MEDS: risperiDONE 0.5 MG TABLET 1.5 MG PO (22:00)
[2023-10-01] MEDS: traZODone HCL 50 MG TABLET 150 MG PO (22:01)
[2023-10-02 08:10] VITALS: BP 166/55; PULSE 86; RESP 18; TEMP 36.6; O2SAT 99
[2023-10-02] MEDS: risperiDONE 0.5 MG TABLET 1.5 MG PO ×2 (08:14→21:43)
[2023-10-02] MEDS: Lurasidone HCl 20 MG TABLET 60 MG PO (08:14)
[2023-10-02] MEDS: Divalproex Sodium 500 MG TABLET.DR PO ×2 (08:14→21:43)
[2023-10-02 17:49] VITALS: BP 120/57; PULSE 98; RESP 18; TEMP 36.2; O2SAT 99
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
[2023-10-02 21:40] VITALS: BP 109/73; PULSE 116; TEMP 36.6
[2023-10-02] MEDS: traZODone HCL 50 MG TABLET 150 MG PO (21:42)
[2023-10-02] MEDS: Doxazosin Mesylate 1 MG TABLET PO (21:44)
[2023-10-03 06:00] VITALS: BP 114/57; PULSE 86; RESP 16; TEMP 36.9; O2SAT 99
[2023-10-03] MEDS: hydrOXYzine HCL 25 MG TABLET PO (09:06)
[2023-10-03] MEDS: Lurasidone HCl 20 MG TABLET 60 MG PO (09:06)
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
[2023-10-03] MEDS: LORazepam 0.5 MG TABLET PO ×2 (10:19→20:34)
[2023-10-03 10:27] LABS: MANUAL DIFF FLAG NO
[2023-10-03 10:35] LABS: Basophils Absolute Auto 0.1 X10*3/uL (0.0-0.2); Basophils Percent Auto 0.8 % (0-2); Eosinophils Absolute Auto 0.2 X10*3/uL (0.0-0.4); Eosinophils Percent Auto 2.7 % (0-4); Hematocrit 40.1 % (37.0-47.0); Hemoglobin 13.4 g/dl (12.0-16.0); Imm Gran Abs Auto 0.01 X10*3/uL (0.00-0.03); Imm Gran Pct Auto 0.2 % (0.0-0.4); Lymphocytes Absolute Auto 1.9 X10*3/uL (1.2-4.9); Lymphocytes Percent Auto 32.2 % (20-40); Mean Corpuscular HGB Conc 33.4 g/dl (31.0-35.0); Mean Corpuscular Hemoglobin 28.4 pg (27.0-33.0); Mean Platelet Volume 10.1 fL (9.4-12.3); Monocytes Absolute Auto 0.4 X10*3/uL (0.1-1.2); Neutrophils Absolute Auto 3.5 x10*3/uL (2.0-8.3); Neutrophils Percent Auto 58.1 % (45-73); Platelet Count 306 X10*3/uL (160-400); Red Blood Count 4.72 X10*6/uL (4.20-5.50); Red Cell Distribution Width 13.9 % (11.0-16.0)
[2023-10-03 10:40] LABS: Ammonia 31 umol/L (13-55)
[2023-10-03 10:43] LABS: Valproate 70.9 mcg/mL (50.0-100.0)
[2023-10-03 10:46] LABS: Alanine Aminotransferase 6 U/L (0-31); Albumin Level 3.9 g/dL (3.5-5.0); Alkaline Phosphatase 71 U/L (39-117); Aspartate Amino Transferase 9 U/L (5-31); Bilirubin Direct < 0.2 mg/dL (0.0-0.5); Bilirubin Total 0.2 mg/dL (0.0-1.0); Total Protein 6.6 g/dL (6.5-8.0)
[2023-10-03] MEDS: LORazepam 1 MG TABLET PO (12:18)
--- NOTE | 2023-10-03 12:59 | PM.GYNCN ---
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 - CN: HPI Data of Consult Consult date: 10/03/23 Requesting Physician: Cheko Rai MD Primary Care Provider: None Physician Consult Narrative Narrative: I was consulted on Mariela Snyder who is is a 28 year old female admitted on [facility] complaining of retained tampon, the patient states that she had a tampon inserted in the vagina 24 hours ago and did not take her out, 2 nurses attempted removal to no avail, no vaginal discharge , no pelvic pain or any other concerns cc:: CC: Cheko Rai MD OB PMF Past Medical History Medical History Bipolar disorder, curr episode mixed, severe, with psychotic features Suicidal ideation Substance abuse PTSD (post-traumatic stress disorder) Anxiety Depression Social History Social History Household Members: None Housing: Homeless Do you presently have visiting nurse or other home services: No Alcohol intake: never Patient Tobacco Use Status: Current everyday Tobacco user Tobacco use type: Cigarette Cigarettes Per Day: 10 Smoked in Last 30 Days: Yes Patient Interested in Nicotine Replacement: Yes Patient Given Instructions on How to Stop Smoking: Yes Date Education Initiated: 09/25/23 Second Hand Smoke Exposure: No Use of substances other than those prescribed or required for medical reasons: Yes Substance Use Type: Marijuana Substance Use Frequency: Daily Last Used Substance: Days (ago) Currently Displaying Signs/Symptoms of Drug Intoxication Withdrawal: No Any prior treatment program specific to substance use: No Advance Directives: No Advance Directives Information Provided: No Do you have thoughts of harming others: None Do you have a plan to hurt others: No Plan Recently lost weight without trying: No Eating poorly because of decreased appetite: No Nutrition Risks: No Nutritional Risk Patient : No : No Poor oral hygiene: No service: No Sexual orientation: Straight/Heterosexual Meds Allergies Allergy/AdvReac Type Severity Reaction Status Date / Time No Known Allergies Allergy Verified 09/22/23 15:12 [No Known Allergies*] Active Medications: Current Medications Acetaminophen (Acetaminophen 325 Mg Tablet) 650 mg PO Q6H PRN PRN Reason: Headache/Pain Mild Scale (1-3) Al Hydroxide/Mg Hydroxide (Magnesium Hydrox/Alum Hydrox 30 Ml Oral.Susp) 30 ml PO Q6H PRN PRN Reason: Heartburn/Nausea Divalproex Sodium (Divalproex Sodium Er 500 Mg Tab.Er.24h) 1,000 mg PO BEDTIME NICHOLAS Doxazosin Mesylate (Doxazosin Mesylate 1 Mg Tablet) 1 mg PO BEDTIME NICHOLAS; Protocol Last Admin: 10/02/23 21:44 Dose: 1 mg Hydroxyzine HCl (Hydroxyzine Hcl 25 Mg Tablet) 25 mg PO Q6H PRN PRN Reason: Anxiety Last Admin: 10/03/23 09:06 Dose: 25 mg Lorazepam (Lorazepam 0.5 Mg Tablet) 0.5 mg PO BID PRN PRN Reason: Anxiety Last Admin: 10/03/23 10:19 Dose: 0.5 mg Lurasidone HCl (Lurasidone Hcl 20 Mg Tablet) 60 mg PO DAILY NICHOLAS Last Admin: 10/03/23 09:06 Dose: 60 mg Magnesium Hydroxide (Milk Of Magnesia 30 Ml Oral.Susp) 30 ml PO DAILY PRN PRN Reason: Constipation Nicotine (Nicotine 21 Mg Patch.Td24) 21 mg TRANSDERMA DAILY PRN PRN Reason: smoking cessation Last Admin: 09/26/23 08:55 Dose: 21 mg Nicotine Polacrilex (Nicotine Polacrilex 2 Mg Gum) 4 mg BUCCAL Q2H PRN PRN Reason: Nicotine Cravings Risperidone (Risperidone 3 Mg Tablet) 3 mg PO BEDTIME NICHOLAS Trazodone HCl (Trazodone Hcl 50 Mg Tablet) 50 mg PO BEDTIME MRX1 PRN PRN Reason: Insomnia Last Admin: 10/01/23 02:29 Dose: 50 mg Trazodone HCl (Trazodone Hcl 50 Mg Tablet) 150 mg PO BEDTIME NICHOLAS Last Admin: 10/02/23 21:42 Dose: 150 mg Home Medications ?Medication ?Instructions ?Recorded ?Confirmed ?Last Taken ?Type divalproex 500 mg tablet,delayed 500 mg PO BID 09/22/23 09/22/23 Unknown History release (Depakote) lurasidone 40 mg tablet (Latuda) 40 mg PO DAILY 09/22/23 09/22/23 09/17/23 08:55 History norethindrone (contraceptive) 0.35 0.35 mg PO DAILY 09/22/23 09/22/23 Unknown History mg tablet trazodone 50 mg tablet 50 mg PO BEDTIME 09/22/23 09/22/23 09/16/23 22:05 History 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 Physical Exam Vitals Vital signs: Temp Pulse Resp BP Pulse Ox O2 Del Method 98.4 F 86 16 114/57 L 99 Room Air 10/03/23 06:00 10/03/23 06:00 10/03/23 06:00 10/03/23 06:00 10/03/23 06:00 10/03/23 06:00 BMI result Body Mass Index 32.3 Female Genitalia (Pelvic) Bladder/Urethra: Normal meatus Vulva: No lesions Vagina: Nontender Cervix: Grossly normal Uterus: Normal size Adnexa/Parametria: Adnexal Tenderness: None, Adnexal Mass: None, Parametrial Tenderness: None and Parametrial Mass: None Additional Comments: No tampon seen in the vagina 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 - Results Labs 10/03/23 10:23 09/22/23 15:53 Labs: Short CBC 10/03/23 Range/Units 10:23 WBC 6.0 (4.8-10.8) X10*3/uL Hgb 13.4 (12.0-16.0) g/dl Hct 40.1 (37.0-47.0) % Plt Count 306 (160-400) X10*3/uL Liver Function 10/03/23 Range/Units 10:23 Total Bilirubin 0.2 (0.0-1.0) mg/dL Direct Bilirubin < 0.2 (0.0-0.5) mg/dL AST 9 (5-31) U/L ALT 6 (0-31) U/L Alkaline Phosphatase 71 (39-117) U/L Albumin 3.9 (3.5-5.0) g/dL Urine 09/24/23 Range/Units 08:56 Urine Color Yellow Urine Appearance Clear Urine pH 6.5 (5.0-9.0) Ur Specific [place] 1.025 (1.005-1.025) Urine Protein Negative (Neg-Trace) mg/dL Urine Glucose (UA) Negative (Negative) mg/dL Urine Test NEGATIVE (NEGATIVE) Assessment and Plan (1) Retained tampon not found on examination: Status: Acute Discussed with the patient the finding on pelvic exam no evidence of tampon in the vagina, instructions given the patient to report to the nurses in the unit if pain occurs, vaginal discharge or felt a foreign object in the vagina where will re-attempt vaginal inspection. All questions answered, the patient verbalized understanding
[2023-10-03 20:00] VITALS: BP 116/76; PULSE 86; RESP 16; TEMP 36.2; O2SAT 99
[2023-10-03] MEDS: Doxazosin Mesylate 1 MG TABLET PO (20:33)
[2023-10-03] MEDS: risperiDONE 3 MG TABLET PO (20:33)
[2023-10-03] MEDS: Divalproex Sodium ER 500 MG TAB.ER.24H 1000 MG PO (20:33)
[2023-10-03] MEDS: traZODone HCL 50 MG TABLET 150 MG PO (20:33)
[2023-10-04 07:00] VITALS: BMI 35.3
[2023-10-04 08:00] VITALS: BP 116/56; PULSE 72; RESP 18; TEMP 36.4; O2SAT 99
[2023-10-04] MEDS: Lurasidone HCl 20 MG TABLET 60 MG PO (08:19)
--- NOTE | 2023-10-04 10:37 | HO.PSYCHPN ---
Subjective Subjective Date of Service: 10/04/23 Reason For Visit: Manic Interim History: met with patient; discussed with team Seems a little hypomanic but mildly pressured speech could also be a product of trauma, ADHD. Patient reports feeling depressed and triggered from yesterdays events; however she reports she is feeling better than when she came in, 11/25, 10 being her most regular self. She agrees to spend more time in the unit and increase Depakote a little bit. She is not worried about where she is going to stay and says she will be fine in a nursing home that she stayed in shelters before and she even prefers that to stay with her aunt. Mental Status Exam Mental Status Exam Narrative: Pt is alert and oriented; behavior is mildly hypomanic, remains cooperative, engaged in tx and calm; patient is not in distress; dressed in casual attire, with good hygiene; mood is described as depressed and affect congruent, more downcast; eye contact appropriate; Speech a little bit pressured but then returns to being mostly normal rate, volume; normal prosody; some brief intermittent psychomotor agitation present; thought process is goal directed and organized; Thought content is on life issues, treatment, hopes/worries; hx of trauma; otherwise pertinent to relevant topics; not sure if pt with delusional content; no more SI or HI; No AVH; does not appear to be internally pre-occupied. Patients insight and judgment fair Diagnostics Vital Signs (24Hr): Vital Signs - 24 hr 10/03/23 20:00 10/04/23 08:00 Temperature 97.1 F 97.6 F Pulse Rate 86 72 Respiratory Rate 16 18 Blood Pressure 116/76 116/56 L Pulse Oximetry 99 99 Oxygen Delivery Method Room Air Room Air BMI result Body Mass Index 32.3 Labs 10/03/23 10:23 09/22/23 15:53 Labs: Laboratory Results - last 48 hr 10/03/23 10:23 WBC 6.0 RBC 4.72 Hgb 13.4 Hct 40.1 MCV 85.0 MCH 28.4 MCHC 33.4 RDW 13.9 Plt Count 306 MPV 10.1 Immature Gran % (Auto) 0.2 Neut % (Auto) 58.1 Lymph % (Auto) 32.2 Roberts % (Auto) 6.0 Eos % (Auto) 2.7 Baso % (Auto) 0.8 Lymph # (Auto) 1.9 Roberts # (Auto) 0.4 Eos # (Auto) 0.2 Baso # (Auto) 0.1 Abs Immat Gran (auto) 0.01 Absolute Neuts (auto) 3.5 Absolute Nucleated RBC 0.000 Nucleated RBC % (auto) 0.0 Total Bilirubin 0.2 Direct Bilirubin < 0.2 AST 9 ALT 6 Alkaline Phosphatase 71 Ammonia 31 Total Protein 6.6 Albumin 3.9 Valproic Acid 70.9 Medications Medications Current Medications Acetaminophen (Acetaminophen 325 Mg Tablet) 650 mg PO Q6H PRN PRN Reason: Headache/Pain Mild Scale (1-3) Al Hydroxide/Mg Hydroxide (Magnesium Hydrox/Alum Hydrox 30 Ml Oral.Susp) 30 ml PO Q6H PRN PRN Reason: Heartburn/Nausea Divalproex Sodium (Divalproex Sodium Er 500 Mg Tab.Er.24h) 1,000 mg PO BEDTIME NICHOLAS Last Admin: 10/03/23 20:33 Dose: 1,000 mg Doxazosin Mesylate (Doxazosin Mesylate 1 Mg Tablet) 1 mg PO BEDTIME NICHOLAS; Protocol Last Admin: 10/03/23 20:33 Dose: 1 mg Hydroxyzine HCl (Hydroxyzine Hcl 25 Mg Tablet) 25 mg PO Q6H PRN PRN Reason: Anxiety Last Admin: 10/03/23 09:06 Dose: 25 mg Lorazepam (Lorazepam 0.5 Mg Tablet) 0.5 mg PO BID PRN PRN Reason: Anxiety Last Admin: 10/03/23 20:34 Dose: 0.5 mg Lurasidone HCl (Lurasidone Hcl 20 Mg Tablet) 60 mg PO DAILY@1800 NICHOLAS Magnesium Hydroxide (Milk Of Magnesia 30 Ml Oral.Susp) 30 ml PO DAILY PRN PRN Reason: Constipation Nicotine (Nicotine 21 Mg Patch.Td24) 21 mg TRANSDERMA DAILY PRN PRN Reason: smoking cessation Last Admin: 09/26/23 08:55 Dose: 21 mg Nicotine Polacrilex (Nicotine Polacrilex 2 Mg Gum) 4 mg BUCCAL Q2H PRN PRN Reason: Nicotine Cravings Risperidone (Risperidone 3 Mg Tablet) 3 mg PO BEDTIME NICHOLAS Last Admin: 10/03/23 20:33 Dose: 3 mg Trazodone HCl (Trazodone Hcl 50 Mg Tablet) 50 mg PO BEDTIME MRX1 PRN PRN Reason: Insomnia Last Admin: 10/01/23 02:29 Dose: 50 mg Trazodone HCl (Trazodone Hcl 50 Mg Tablet) 150 mg PO BEDTIME NICHOLAS Last Admin: 10/03/23 20:33 Dose: 150 mg Allergies Allergies Allergy/AdvReac Type Severity Reaction Status Date / Time No Known Allergies Allergy Verified 09/22/23 15:12 [No Known Allergies*] Assessment & Plan Assessment & Plan (1) Bipolar disorder, curr episode mixed, severe, with psychotic features: Status: Acute Code(s): F31.64 - Bipolar disorder, current episode mixed, severe, with psychotic features (2) PTSD (post-traumatic stress disorder): Status: Acute Code(s): F43.10 - Post-traumatic stress disorder, unspecified Plan Pt is a 28 yo Bipolar mixed, PTSD, Asthma, non-epileptic seizures who presents 3 days after discharge from [facility], brought in by her parents and presents with continued manic behaviors. On the unit, patient cooperative though irritable, edgy, loud hyperverbal, singing about murder in the hallways... Talking about a fetus... Patient says she was taking her medications (parents dispute this) and was spending time w/ another peer she met on [facility], smoking cannabis, not sleeping at all since she was too excited... Pt says she was triggered by a disociative episode during which time she saw writing on wall that said kathy senbreanna which is her rapper name... She looked down and there was a marker in her hand. Patient said that she has tried many medications and they do not work. Discussed lithium and Depakote and patient said she has a phobia of needles and that for her getting a needle stick it is the equivalent of being raped... She is amenable to other medication changes however. Pt endorses SI with plans OD on heroin (which she's never used); also endorses HI with a list of 4 people, though she denies intention denies etoh or other drug use. ED/care team note reports pt was calling her parents who were worried and who brought her to ED. apparently she had written all over the [place] of the apartment and landlord was evicting her. In ED, pt agitated, yelling about being raped, , spit at staff eventually needing to be physically/chemically restrained -on unit slamming doors Formulation: bipolar disorder; ptsd, maybe borderline traits. lots of med trials; pt reports phobia of needles and does not want meds that require blood draws Hospital course: 09/26 a little more calm and remains cooperative but still disruptive, loud, slamming door throughout night...labile. Pt reports feeling hopeless; tangential; [facility], ended up getting a D&C; talked about burying the baby in an asthma inhaler box...talked about domestic abuse... took all her medications; 09/27 much more calm today; singing in hallway, but no longer an angry song to which she agrees is an improvement; no SI or HI. Sleeping much better. Says feels a little more calm and that now i don't feel like i'm being tortured and that my tortures have gotten bored and are leaving me alone... 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 discussed some of her life, goals, hopes...as well as past trauma -continue current regimen; will decide what to do about Depakote after a few more days of current regimen 10/01 pt says she's feeling a little better, more calm, less opposed by others. Medications changed over the weekend, with lowered risperdal since it was making her tired. Pt still hypomanic, with mildly pressured speech, but logical and linear. Discussed diagnosis at length and pt said she grudgingly accepts bipolar diagnosis. Pt shares that when she was young, she was forced to go to doctors, take meds and got diagnosed as a kid with bipolar and feels she suffered stigma of this label...however, given recent events she feels it's probably the right diagnosis. Discussed medication regimen and how it will likely take an extended time to figure out the most effective regimen with the least medications. Given that she's feeling more stable, she agrees to remain on Latuda and Risperdal and even Depakote, consenting to needed blood draw (requesting experienced phleb and nurses to hold her hand) 10/02 depressed affect, feeling triggered due to speculum exam, blood draw, coping by isolating and sleeping. No tampon found depakote level WNL; associated labs WNL continue tx plan 10/03 a little bit pressured speech, depressed but overall feeling much better when she came in and discussing aftercare plans Plan: CV q15 min checks Continue risperdal 3mg qhs increase to depakote ER 12 50 mg at bed (pt therapeutic on 1000mg IR depakote; now on ER which is typically 80% of IR so will raise) -labs WNL -dispo planning Patient educated on: diagnosis, medication risk/benefits and therapeutic strategies Informed Consent: understands Reason for continued inpatient stay Substantial Risk for: rapid decompensation Time Spent With Patient Time: Total time managing care of this patient today ____ minutes.
[2023-10-04 12:49] LABS: Amphetamine Screen Urine Not Detected (Not Detect); Barbiturates, Urine Not Detected (Not Detect); Benzodiazepines Screen Urine Not Detected (Not Detect); Buprenorphine Scr Not Detected (Not Detect); Cannabinoid Screen Urine POSITIVE (Not Detect); Cocaine Screen Urine Not Detected (Not Detect); Fentanyl, urine Not Detected (Not Detect); Methadone Screen, Urine Not Detected (Not Detect); Opiate Screen Urine Not Detected (Not Detect); Oxycodone Screen Urine Not Detected (Not Detect); Phencyclidine Screen Urine Not Detected (Not Detect)
[2023-10-04 20:00] VITALS: BP 125/71; PULSE 82; RESP 18; TEMP 36.8; O2SAT 100
[2023-10-04] MEDS: risperiDONE 3 MG TABLET PO (22:08)
[2023-10-04] MEDS: traZODone HCL 50 MG TABLET 150 MG PO (22:08)
[2023-10-04] MEDS: Doxazosin Mesylate 1 MG TABLET PO (22:09)
[2023-10-04] MEDS: LORazepam 0.5 MG TABLET PO (22:09)
[2023-10-04] MEDS: Divalproex Sodium ER 250 MG TAB.ER.24H 1250 MG PO (22:09)
[2023-10-05 08:00] VITALS: BP 99/58; PULSE 77; RESP 16; TEMP 36.6; O2SAT 98
[2023-10-05] MEDS: hydrOXYzine HCL 25 MG TABLET PO (11:17)
--- NOTE | 2023-10-05 13:44 | P.CONOB_ITS ---
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 She ended her menses this week and had thought she may have had left a tampon in place. Examined by Dr. Cannon on 10/02, the pelvic exam did not reveal any retained tampon. She reports her symptoms are still persistent and that is something is off. She is concerned that her partner may have been unfaithful and would like to have STD testing today. 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 She reports her cycle this week was her 1st since May following a TOP. Admits her cycle tends to be irregular, she finds it too stressful to monitor them with a phone la, based on today's review they may be approximately 5-6 weeks apart. test negative 09/24/23. Visit accompanied by [facility] staff member. 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 - Review of Systems Review of Systems ROS Unobtainable: All systems reviewed & are unremarkable except as noted in HPI and below OB PMFSH Past Medical History Medical History (Updated 10/05/23 @ 14:19 by Tasha Carranza CNM) Bipolar disorder, curr episode mixed, severe, with psychotic features Suicidal ideation Substance abuse PTSD (post-traumatic stress disorder) Anxiety Depression Social History Social History Household Members: None Housing: Homeless Do you presently have visiting nurse or other home services: No Alcohol intake: never Patient Tobacco Use Status: Current everyday Tobacco user Tobacco use type: Cigarette Cigarettes Per Day: 10 Smoked in Last 30 Days: Yes Patient Interested in Nicotine Replacement: Yes Patient Given Instructions on How to Stop Smoking: Yes Date Education Initiated: 09/25/23 Second Hand Smoke Exposure: No Use of substances other than those prescribed or required for medical reasons: Yes Substance Use Type: Marijuana Substance Use Frequency: Daily Last Used Substance: Days (ago) Currently Displaying Signs/Symptoms of Drug Intoxication Withdrawal: No Any prior treatment program specific to substance use: No Advance Directives: No Advance Directives Information Provided: No Do you have thoughts of harming others: None Do you have a plan to hurt others: No Plan Recently lost weight without trying: No Eating poorly because of decreased appetite: No Nutrition Risks: No Nutritional Risk Patient : No : No Poor oral hygiene: No service: No Sexual orientation: Straight/Heterosexual Meds Allergies Allergy/AdvReac Type Severity Reaction Status Date / Time No Known Allergies Allergy Verified 09/22/23 15:12 [No Known Allergies*] Active Medications: Current Medications Acetaminophen (Acetaminophen 325 Mg Tablet) 650 mg PO Q6H PRN PRN Reason: Headache/Pain Mild Scale (1-3) Al Hydroxide/Mg Hydroxide (Magnesium Hydrox/Alum Hydrox 30 Ml Oral.Susp) 30 ml PO Q6H PRN PRN Reason: Heartburn/Nausea Divalproex Sodium (Divalproex Sodium Er 250 Mg Tab.Er.24h) 1,250 mg PO BEDTIME NICHOLAS Last Admin: 10/04/23 22:09 Dose: 1,250 mg Doxazosin Mesylate (Doxazosin Mesylate 1 Mg Tablet) 1 mg PO BEDTIME NICHOLAS; Protocol Last Admin: 10/04/23 22:09 Dose: 1 mg Hydroxyzine HCl (Hydroxyzine Hcl 25 Mg Tablet) 25 mg PO Q6H PRN PRN Reason: Anxiety Last Admin: 10/05/23 11:17 Dose: 25 mg Lorazepam (Lorazepam 0.5 Mg Tablet) 0.5 mg PO BID PRN PRN Reason: Anxiety Last Admin: 10/04/23 22:09 Dose: 0.5 mg Lurasidone HCl (Lurasidone Hcl 20 Mg Tablet) 60 mg PO DAILY@1800 NICHOLAS Magnesium Hydroxide (Milk Of Magnesia 30 Ml Oral.Susp) 30 ml PO DAILY PRN PRN Reason: Constipation Nicotine (Nicotine 21 Mg Patch.Td24) 21 mg TRANSDERMA DAILY PRN PRN Reason: smoking cessation Last Admin: 09/26/23 08:55 Dose: 21 mg Nicotine Polacrilex (Nicotine Polacrilex 2 Mg Gum) 4 mg BUCCAL Q2H PRN PRN Reason: Nicotine Cravings Risperidone (Risperidone 3 Mg Tablet) 3 mg PO BEDTIME NICHOLAS Last Admin: 10/04/23 22:08 Dose: 3 mg Trazodone HCl (Trazodone Hcl 50 Mg Tablet) 50 mg PO BEDTIME MRX1 PRN PRN Reason: Insomnia Last Admin: 10/01/23 02:29 Dose: 50 mg Trazodone HCl (Trazodone Hcl 50 Mg Tablet) 150 mg PO BEDTIME NICHOLAS Last Admin: 10/04/23 22:08 Dose: 150 mg Home Medications ?Medication ?Instructions ?Recorded ?Confirmed ?Last Taken ?Type divalproex 500 mg tablet,delayed 500 mg PO BID 09/22/23 09/22/23 Unknown History release (Depakote) lurasidone 40 mg tablet (Latuda) 40 mg PO DAILY 09/22/23 09/22/23 09/17/23 08:55 History norethindrone (contraceptive) 0.35 0.35 mg PO DAILY 09/22/23 09/22/23 Unknown History mg tablet trazodone 50 mg tablet 50 mg PO BEDTIME 09/22/23 09/22/23 09/16/23 22:05 History [employer]DEL [employer]ER Physical Exam Vitals Vital signs: Temp Pulse Resp BP Pulse Ox O2 Del Method 98 F 77 16 99/58 L 98 Room Air 10/05/23 08:00 10/05/23 08:00 10/05/23 08:00 10/05/23 08:00 10/05/23 08:00 10/05/23 08:00 BMI result Body Mass Index 35.3 Conflicts Analyst: Other (Azalea Varner CMA) Constitutional General Appearance: Healthy appearing Psychiatric Mood and Affect: active and alert and anxious Abdomen Auscultation/Inspection/Palpation: Soft and Tenderness (Slightly tender right side superficial anterior muscle region) Female Genitalia (Pelvic) Bladder/Urethra: Normal meatus and No discharge Vulva: No lesions, No tenderness and No masses Vagina: Tenderness (Slightly tender to the left wall) Cervix: Grossly normal Uterus: Normal size and Tender (Uncomfortable with her exam in general) Adnexa/Parametria: Adnexal Tenderness: None 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 Pelvic ultrasound ordered. Advised to inform staff if anything changes with her comfort level. Informed no obvious abnormal findings were noted with her exam, including no retained tampon products. 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 All of her questions and concerns were addressed to the best of my ability. She is agreeable to the plan of care. This note is constructed using voice recognition software. While every effort has been made to ensure accuracy, broadcast traffic coordinator errors may have been included.
[2023-10-05 14:37] LABS: Appearance Urine Clear; Color Urine Yellow; Glucose Urine UA Negative (Negative); Leukocyte Esterase Urine Negative (Negative); Nitrite Urine Negative (Negative); UMIC TRIGGER UACC YES; Urine Blood Trace (Negative); Urine Ketones Negative (Negative); Urine Protein Negative (Neg-Trace)
[2023-10-05 14:40] LABS: Bacteria Urine None Seen (None Seen); Hyaline Casts Urine 0-2 /LPF (0-2); Squamous Epithelial Cell Urine 0-2 /HPF (0-2); WBC Urine 0-5 /HPF (0-5)
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
[2023-10-05 16:02] LABS: CT PCR NOT DETECTED (Not Detect.); NG PCR NOT DETECTED (Not Detect.)
[2023-10-05] MEDS: Lurasidone HCl 20 MG TABLET 60 MG PO (17:55)
[2023-10-05 20:00] VITALS: BP 140/56; PULSE 119; RESP 18; TEMP 36.4; O2SAT 98
[2023-10-05] MEDS: risperiDONE 3 MG TABLET PO (21:13)
[2023-10-05] MEDS: Divalproex Sodium ER 250 MG TAB.ER.24H 1250 MG PO (21:13)
[2023-10-05] MEDS: traZODone HCL 50 MG TABLET 150 MG PO (21:14)
[2023-10-05] MEDS: Doxazosin Mesylate 1 MG TABLET PO (21:14)
[2023-10-06 10:05] VITALS: BP 126/82; PULSE 94; RESP 18; TEMP 36.4; O2SAT 96
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
[2023-10-06 13:08] LABS: BV Int Neg Control Negative (Negative); BV Int Pos Control Positive (Positive)
[2023-10-06] MEDS: Lurasidone HCl 20 MG TABLET 60 MG PO (18:22)
[2023-10-06 20:00] VITALS: BP 155/113; PULSE 84; RESP 17; TEMP 36.4; O2SAT 96
[2023-10-06] MEDS: Divalproex Sodium ER 250 MG TAB.ER.24H 1250 MG PO (21:18)
[2023-10-06] MEDS: risperiDONE 3 MG TABLET PO (21:19)
[2023-10-06] MEDS: traZODone HCL 50 MG TABLET 150 MG PO (21:19)
[2023-10-06] MEDS: Doxazosin Mesylate 1 MG TABLET PO (21:20)
[2023-10-06] MEDS: LORazepam 0.5 MG TABLET PO (21:20)
[2023-10-07 08:00] VITALS: BP 122/73; PULSE 106; TEMP 36.4; O2SAT 99
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
[2023-10-07] MEDS: hydrOXYzine HCL 25 MG TABLET PO (14:25)
--- NOTE | 2023-10-07 15:37 | PC.NURSE ---
Mariela complained of floaters indicative of aura, has hx of migraine however did not feel that this was related. Pt requested and was given hydroxyzine with good effect. Aware.
[2023-10-07] MEDS: Lurasidone HCl 20 MG TABLET 60 MG PO (18:17)
[2023-10-07] MEDS: Divalproex Sodium ER 250 MG TAB.ER.24H 1250 MG PO (20:48)
[2023-10-07 20:50] VITALS: BP 92/50; PULSE 105; TEMP 35.9
[2023-10-07] MEDS: traZODone HCL 50 MG TABLET 150 MG PO (20:52)
[2023-10-07] MEDS: risperiDONE 3 MG TABLET PO (20:53)
[2023-10-08 08:41] VITALS: BP 110/61; PULSE 88; RESP 16; TEMP 36.2; O2SAT 98
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
[2023-10-08] MEDS: LORazepam 0.5 MG TABLET PO (11:41)
[2023-10-08] MEDS: Lurasidone HCl 20 MG TABLET 60 MG PO (18:28)
--- NOTE | 2023-10-08 19:05 | HO.PSYEVENT2 ---
Documented by User: Melanie Israel APRN 10/08/23 19:06 Event Note Date of Service: 10/08/23 Psych On-Call Event Note: Team reports pt sustained a fall without injury, without hitting her head. At this time pt/team deny need for diagnostic imaging. Time Spent With Patient Time: Total time managing care of this patient today ____ minutes. Documented by User: Mark Tyler MD 10/12/23 23:15 Event Note Date of Service: 10/12/23
--- NOTE | 2023-10-08 19:10 | PC.NURSE ---
Addendum entered by Atul Rdz RN 10/08/23 19:25: Emily is A/O X4. Original Note: Emily was found in the kitchen floor sitting, upon approach she stated This happens to me every so often, she reported My vision went black and I passed out, when asked if she hit her head stated No, she denied having pain, VS obtained, Jhonatan PACKAGE COLLECTOR notified.
[2023-10-08 20:00] VITALS: BP 122/68; PULSE 93; TEMP 35.9; O2SAT 99
[2023-10-08] MEDS: traZODone HCL 50 MG TABLET 150 MG PO (20:28)
[2023-10-08] MEDS: Doxazosin Mesylate 1 MG TABLET PO (20:29)
[2023-10-08] MEDS: risperiDONE 3 MG TABLET PO (20:29)
[2023-10-08] MEDS: Divalproex Sodium ER 250 MG TAB.ER.24H 1250 MG PO (20:29)
[2023-10-09 08:00] VITALS: RESP 18
--- NOTE | 2023-10-09 08:26 | HO.PSYCHPN ---
Subjective Subjective Date of Service: 10/09/23 Reason For Visit: Manic Interim History: Met with patient; discussed with team Remains doing better, little sleepy today but otherwise feeling good about discharge tomorrow. Remains in good behavioral and impulse control Did labs and patient with elevated ammonia; will lower Depakote Mental Status Exam Mental Status Exam Narrative: Pt is alert and oriented; behavior is calm, friendly, cooperative; she is engaged in tx; patient is not in distress; dressed in casual attire, with good hygiene; mood is described a ok and affect congruent,overall bright, calm; eye contact appropriate; Speech is normal rate, volume, prosody; brief moment of psychomotor agitation which self-resolved; thought process is goal directed and organized; Thought content is on life issues, treatment, hopes/worries;intermittently on hx of trauma; otherwise pertinent to relevant topics and no delusional/paranoid ideation; no SI or HI; No AVH; does not appear to be internally pre-occupied. Patients insight and judgment fair Diagnostics Vital Signs (24Hr): Vital Signs - 24 hr 10/08/23 08:41 10/08/23 20:00 Temperature 97.1 F 96.7 F L Pulse Rate 88 93 Respiratory Rate 16 Blood Pressure 110/61 122/68 Pulse Oximetry 98 99 Oxygen Delivery Method Room Air Room Air BMI result Body Mass Index 35.3 Labs 10/03/23 10:23 09/22/23 15:53 Imaging Radiology Impressions: ITS Impressions Pelvis X-Ray 10/05/23 11:55 IMPRESSION: No identifiable tampon. Question prominent pelvic soft tissue density. Consider pelvic ultrasound. Pelvic/Transvag US 10/05/23 17:52 IMPRESSION: 1. Several echogenic foci are seen within the myometrium. These are of doubtful clinical significance. 2. Normal ovaries. Medications Medications Current Medications Acetaminophen (Acetaminophen 325 Mg Tablet) 650 mg PO Q6H PRN PRN Reason: Headache/Pain Mild Scale (1-3) Al Hydroxide/Mg Hydroxide (Magnesium Hydrox/Alum Hydrox 30 Ml Oral.Susp) 30 ml PO Q6H PRN PRN Reason: Heartburn/Nausea Divalproex Sodium (Divalproex Sodium Er 250 Mg Tab.Er.24h) 1,250 mg PO BEDTIME NICHOLAS Last Admin: 10/08/23 20:29 Dose: 1,250 mg Doxazosin Mesylate (Doxazosin Mesylate 1 Mg Tablet) 1 mg PO BEDTIME NICHOLAS; Protocol Last Admin: 10/08/23 20:29 Dose: 1 mg Hydroxyzine HCl (Hydroxyzine Hcl 25 Mg Tablet) 25 mg PO Q6H PRN PRN Reason: Anxiety Last Admin: 10/07/23 14:25 Dose: 25 mg Lorazepam (Lorazepam 0.5 Mg Tablet) 0.5 mg PO BID PRN PRN Reason: Anxiety Last Admin: 10/08/23 11:41 Dose: 0.5 mg Lurasidone HCl (Lurasidone Hcl 20 Mg Tablet) 60 mg PO DAILY@1800 NICHOLAS Last Admin: 10/08/23 18:28 Dose: 60 mg Magnesium Hydroxide (Milk Of Magnesia 30 Ml Oral.Susp) 30 ml PO DAILY PRN PRN Reason: Constipation Nicotine (Nicotine 21 Mg Patch.Td24) 21 mg TRANSDERMA DAILY PRN PRN Reason: smoking cessation Last Admin: 09/26/23 08:55 Dose: 21 mg Nicotine Polacrilex (Nicotine Polacrilex 2 Mg Gum) 4 mg BUCCAL Q2H PRN PRN Reason: Nicotine Cravings Risperidone (Risperidone 3 Mg Tablet) 3 mg PO BEDTIME NICHOLAS Last Admin: 10/08/23 20:29 Dose: 3 mg Trazodone HCl (Trazodone Hcl 50 Mg Tablet) 50 mg PO BEDTIME MRX1 PRN PRN Reason: Insomnia Last Admin: 10/01/23 02:29 Dose: 50 mg Trazodone HCl (Trazodone Hcl 50 Mg Tablet) 150 mg PO BEDTIME NICHOLAS Last Admin: 10/08/23 20:28 Dose: 150 mg Allergies Allergies Allergy/AdvReac Type Severity Reaction Status Date / Time No Known Allergies Allergy Verified 09/22/23 15:12 [No Known Allergies*] Assessment & Plan Assessment & Plan (1) PTSD (post-traumatic stress disorder): Status: Acute Code(s): F43.10 - Post-traumatic stress disorder, unspecified (2) Bipolar disorder, curr episode mixed, severe, with psychotic features: Status: Acute Code(s): F31.64 - Bipolar disorder, current episode mixed, severe, with psychotic features Plan Pt is a 28 yo Bipolar mixed, PTSD, Asthma, non-epileptic seizures who presents 3 days after discharge from , brought in by her parents and presents with continued manic behaviors. On the unit, patient cooperative though irritable, edgy, loud hyperverbal, singing about murder in the hallways... Talking about a fetus... Patient says she was taking her medications (parents dispute this) and was spending time w/ another peer she met on m3, smoking cannabis, not sleeping at all since she was too excited... Pt says she was triggered by a disociative episode during which time she saw writing on wall that said kathy palmer which is her rapper name... She looked down and there was a marker in her hand. Patient said that she has tried many medications and they do not work. Discussed lithium and Depakote and patient said she has a phobia of needles and that for her getting a needle stick it is the equivalent of being raped... She is amenable to other medication changes however. Pt endorses SI with plans OD on heroin (which she's never used); also endorses HI with a list of 4 people, though she denies intention denies etoh or other drug use. ED/care team note reports pt was calling her parents who were worried and who brought her to ED. apparently she had written all over the [place] of the apartment and landlord was evicting her. In ED, pt agitated, yelling about being raped, , spit at staff eventually needing to be physically/chemically restrained -on unit slamming doors Formulation: bipolar disorder; ptsd, maybe borderline traits. Hospital course: 09/26 a little more calm and remains cooperative but still disruptive, loud, slamming door throughout night...labile. Pt reports feeling hopeless; tangential; [facility], ended up getting a D&C; talked about burying the baby in an asthma inhaler box...talked about domestic abuse... took all her medications; 09/27 much more calm today; singing in hallway, but no longer an angry song to which she agrees is an improvement; no SI or HI. Sleeping much better. Says feels a little more calm and that now i don't feel like i'm being tortured and that my tortures have gotten bored and are leaving me alone... -discussed medication; she understands that maybe it's the risperdal helping or maybe it's the combination of Risperdal and depakote...she accepts that soon, she'll either have to allow for blood draw or communications writer will have to DC depakote. discussed some of her life, goals, hopes...as well as past trauma -continue current regimen; will decide what to do about Depakote after a few more days of current regimen 10/01 pt says she's feeling a little better, more calm, less opposed by others. Medications changed over the weekend, with lowered risperdal since it was making her tired. Pt still hypomanic, with mildly pressured speech, but logical and linear. Discussed diagnosis at length and pt said she grudgingly accepts bipolar diagnosis. Pt shares that when she was young, she was forced to go to doctors, take meds and got diagnosed as a kid with bipolar and feels she suffered stigma of this label...however, given recent events she feels it's probably the right diagnosis. Discussed medication regimen and how it will likely take an extended time to figure out the most effective regimen with the least medications. Given that she's feeling more stable, she agrees to remain on Latuda and Risperdal and even Depakote, consenting to needed blood draw (requesting experienced phleb and nurses to hold her hand) 10/02 depressed affect, feeling triggered due to speculum exam, blood draw, coping by isolating and sleeping. No tampon found depakote level WNL; associated labs WNL continue tx plan 10/03 a little bit pressured speech, depressed but overall feeling much better when she came in and discussing aftercare plans 10/04 pt feeling a little better and remains with improved emotional self-control. -pelvic pain but xray, 2 speculum exams and no embedded tampon; labs for std/BV/UA; Insurance Follow Up Rep following 10/05 Patient reports being in a good mood and is enjoying playing games with peers. A little bit of pressured speech but patient says it is just because she is happy and people are always asking if she is manic whenever she is feeling happy. Patient is in good behavioral and impulse control. Patient a little more hopeful. Reviewed lab results with some still pending -pelvic pain resolved; discharge subsided 10/06 overall continues to do well; brief moment of agitation which self-resolved. Engaged in treatment and working hard to utilize coping skills. Patient feeling hopeful which is significant improvement Labs negative; no STD, no urogenital infection -probably should get Depakote labs again though she loathes blood draws 10/07 remains stable; she is hoping she will not have to get more labs but okay if needed 10/08 Remains doing better, little sleepy today but otherwise feeling good about discharge tomorrow. Remains in good behavioral and impulse control Did labs and patient with elevated ammonia; will lower Depakote back to 1000mg (which is technically lower dose that the 1000mg IR she was getting w/ normal ammonia level) -patient looking forward to discharge tomorrow which is the plan She of course remains vulnerable to decompensation as she has been newly diagnosed and newly started on mood stabilizers, however she is doing well, at baseline, wants to discharge, has remained stable and in good behavioral and impulse control, has good insight and judgment into her psychiatric illness and need for medication and wants to continue treatment and is appropriate to continue treatment in the community. She has not in imminent risk for harm to self or others and request for discharge honored. Plan: CV q15 min checks Continue risperdal 3mg qhs Lower to depakote ER 1000 mg at bed (pt therapeutic on 1000mg IR depakote; now on ER which is typically 80% of IR so will raise) -labs negative for Std/BV/UA -dispo planning MANAGER MAINTENANCE recs: BV panel and GC chlamydia swabs obtained. Pelvic ultrasound ordered. Advised to inform staff if anything changes with her comfort level. Informed no obvious abnormal findings were noted with her exam, including no retained tampon products. Encouraged her to follow up for routine Pap and licensing analyst care after discharge from the hospital to the hospital licensing analyst services. All of her questions and concerns were addressed to the best of my ability. She is agreeable to the plan of care. Patient educated on: diagnosis and medication risk/benefits Informed Consent: understands Reason for continued inpatient stay Substantial Risk for: stable for discharge Time Spent With Patient Time: Total time managing care of this patient today ____ minutes.
[2023-10-09 11:31] LABS: Ammonia 74 umol/L (13-55)
[2023-10-09 11:39] LABS: Alanine Aminotransferase 7 U/L (0-31); Albumin Level 3.7 g/dL (3.5-5.0); Alkaline Phosphatase 70 U/L (39-117); Aspartate Amino Transferase 10 U/L (5-31); Bilirubin Direct < 0.2 mg/dL (0.0-0.5); Bilirubin Total 0.2 mg/dL (0.0-1.0); Total Protein 6.5 g/dL (6.5-8.0)
[2023-10-09 12:18] LABS: Valproate 91.6 mcg/mL (50.0-100.0)
[2023-10-09] MEDS: Lurasidone HCl 20 MG TABLET 60 MG PO (19:43)
[2023-10-09 20:00] VITALS: BP 125/56; PULSE 92; TEMP 36.3; O2SAT 98
[2023-10-09] MEDS: Divalproex Sodium ER 250 MG TAB.ER.24H 1250 MG PO (21:10)
[2023-10-09] MEDS: traZODone HCL 50 MG TABLET 150 MG PO (21:11)
[2023-10-09] MEDS: Doxazosin Mesylate 1 MG TABLET PO (21:11)
[2023-10-09] MEDS: risperiDONE 3 MG TABLET PO (21:11)
[2023-10-10 08:00] VITALS: BP 122/78; PULSE 94; RESP 16; TEMP 36.6; O2SAT 100
--- NOTE | 2023-10-10 09:49 | PM.PSYDC ---
DS: Providers Provider Date of Service: 10/10/23 Date of admission: 09/25/23 13:10 Date of discharge: 10/10/23 Primary care physician: None Physician Attending physician on admission: Cheko Rai Consults: 10/03/23 11:29 Consult to Obstetrics / Gynecology Routine Consulting Provider: Villa Cannon Reason for consultation: retained tampon; unable to extract Has provider been notified: No Attending physician on discharge: Cheko Rai DS: Diagnosis Discharge Diagnosis (1) PTSD (post-traumatic stress disorder): Status: Acute (2) Bipolar disorder, curr episode mixed, severe, with psychotic features: Status: Acute DS: Medications Discharge Medications Home Medications: Home Medications ?Medication ?Instructions ?Recorded ?Confirmed norethindrone (contraceptive) 0.35 0.35 mg PO DAILY 09/22/23 09/22/23 mg tablet Previous Rx's ?Medication ?Instructions ?Recorded divalproex 500 mg tablet,extended 1,000 mg (2 x 500 mg) PO BEDTIME 7 10/10/23 release 24 hr days #14 tabs doxazosin 1 mg tablet 1 mg PO BEDTIME 7 days #7 tabs 10/10/23 hydroxyzine HCl 25 mg tablet 25 mg PO TID PRN Anxiety 7 days 10/10/23 #20 tabs lorazepam 1 mg tablet 1 mg PO DAILY PRN Anxiety 7 days 10/10/23 #14 tabs lurasidone 60 mg tablet 60 mg PO DAILY@1800 7 days #7 tabs 10/10/23 risperidone 3 mg tablet 3 mg PO BEDTIME 7 days #7 tabs 10/10/23 trazodone 150 mg tablet 150 mg PO BEDTIME 7 days #7 tabs 10/10/23 Mental Status Exam Mental Status Exam Narrative: Pt is alert and oriented; behavior is calm, friendly, cooperative; she is engaged in tx; patient is not in distress; dressed in casual attire, with good hygiene; mood is described a good and affect congruent, bright, calm; eye contact appropriate; Speech is normal rate, volume, prosody; brief moment of psychomotor agitation which self-resolved; thought process is goal directed and organized; Thought content is on life issues, treatment, hopes/worries;intermittently on hx of trauma; otherwise pertinent to relevant topics and no delusional/paranoid ideation; no SI or HI; No AVH; does not appear to be internally pre-occupied. Patients insight and judgment fair Data Data Completed and Pending Completed studies during hospitalization [Text1]: 10/03/23 10/04/23 10/05/23 10:23 12:24 13:15 WBC 6.0 RBC 4.72 Hgb 13.4 Hct 40.1 MCV 85.0 MCH 28.4 MCHC 33.4 RDW 13.9 Plt Count 306 MPV 10.1 Immature Gran % (Auto) 0.2 Neut % (Auto) 58.1 Lymph % (Auto) 32.2 Quay % (Auto) 6.0 Eos % (Auto) 2.7 Baso % (Auto) 0.8 Lymph # (Auto) 1.9 Quay # (Auto) 0.4 Eos # (Auto) 0.2 Baso # (Auto) 0.1 Abs Immat Gran (auto) 0.01 Absolute Neuts (auto) 3.5 Absolute Nucleated RBC 0.000 Nucleated RBC % (auto) 0.0 Total Bilirubin 0.2 Direct Bilirubin < 0.2 AST 9 ALT 6 Alkaline Phosphatase 71 Ammonia 31 Total Protein 6.6 Albumin 3.9 Urine Color Yellow Urine Appearance Clear Urine pH 6.0 Ur Specific Elora 1.010 Urine Protein Negative Urine Glucose (UA) Negative Urine Ketones Negative Urine Blood Trace Urine Nitrite Negative Ur Leukocyte Esterase Negative Urine RBC 3-5 H Urine WBC 0-5 Ur Squamous Epith Cells 0-2 Urine Bacteria None Seen Hyaline Casts 0-2 Urine Opiates Screen Not Detected Ur Buprenorphine Scrn Not Detected Ur Oxycodone Screen Not Detected Urine Methadone Screen Not Detected Urine Fentanyl Screen Not Detected Ur Barbiturates Screen Not Detected Valproic Acid 70.9 Ur Phencyclidine Scrn Not Detected Ur Amphetamines Screen Not Detected U Benzodiazepines Scrn Not Detected Urine Cocaine Screen Not Detected U Marijuana (THC) Screen POSITIVE H Rosa Isela species DNA Negative Chlam trachomat DNA PCR NOT DETECTED Gardnerella DNA Probe Negative N.gonorrhoeae DNA (PCR) NOT DETECTED Trichomonas DNA Probe Negative 10/09/23 11:11 WBC RBC Hgb Hct MCV MCH MCHC RDW Plt Count MPV Immature Gran % (Auto) Neut % (Auto) Lymph % (Auto) Quay % (Auto) Eos % (Auto) Baso % (Auto) Lymph # (Auto) Quay # (Auto) Eos # (Auto) Baso # (Auto) Abs Immat Gran (auto) Absolute Neuts (auto) Absolute Nucleated RBC Nucleated RBC % (auto) Total Bilirubin 0.2 Direct Bilirubin < 0.2 AST 10 ALT 7 Alkaline Phosphatase 70 Ammonia 74 H Total Protein 6.5 Albumin 3.7 Urine Color Urine Appearance Urine pH Ur Specific Elora Urine Protein Urine Glucose (UA) Urine Ketones Urine Blood Urine Nitrite Ur Leukocyte Esterase Urine RBC Urine WBC Ur Squamous Epith Cells Urine Bacteria Hyaline Casts Urine Opiates Screen Ur Buprenorphine Scrn Ur Oxycodone Screen Urine Methadone Screen Urine Fentanyl Screen Ur Barbiturates Screen Valproic Acid 91.6 Ur Phencyclidine Scrn Ur Amphetamines Screen U Benzodiazepines Scrn Urine Cocaine Screen U Marijuana (THC) Screen Rosa Isela species DNA Chlam trachomat DNA PCR Gardnerella DNA Probe N.gonorrhoeae DNA (PCR) Trichomonas DNA Probe Imaging Diagnostic Imaging Impressions Pelvis X-Ray 10/05/23 11:55 IMPRESSION: No identifiable tampon. Question prominent pelvic soft tissue density. Consider pelvic ultrasound. Pelvic/Transvag US 10/05/23 17:52 IMPRESSION: 1. Several echogenic foci are seen within the myometrium. These are of doubtful clinical significance. 2. Normal ovaries. DS: Summary Hospital Course Hospital Course: HPI: Pt is a 28 yo Bipolar mixed, PTSD, Asthma, non-epileptic seizures who presents 3 days after discharge from [facility], brought in by her parents and presents with continued manic behaviors. On the unit, patient cooperative though irritable, edgy, loud hyperverbal, singing about murder in the hallways... Talking about a fetus... Patient says she was taking her medications (parents dispute this) and was spending time w/ another peer she met on [facility], smoking cannabis, not sleeping at all since she was too excited... Pt says she was triggered by a disociative episode during which time she saw writing on wall that said six senz which is her rapper name... She looked down and there was a marker in her hand. Patient said that she has tried many medications and they do not work. Discussed lithium and Depakote and patient said she has a phobia of needles and that for her getting a needle stick it is the equivalent of being raped... She is amenable to other medication changes however. Pt endorses SI with plans OD on heroin (which she's never used); also endorses HI with a list of 4 people, though she denies intention denies etoh or other drug use. ED/care team note reports pt was calling her parents who were worried and who brought her to ED. apparently she had written all over the [place]ry[place] of the apartment and landlord was evicting her. In ED, pt agitated, yelling about being raped, , spit at staff eventually needing to be physically/chemically restrained -on unit slamming doors Formulation: bipolar disorder; ptsd Hospital course: On admission patient manic, loud, intrusive, slamming doors, labile and hyperverbal. Also depressed, feeling hopeless, rambling about trauma Patient willing to continue with Depakote which was started in the emergency room, continue with Latuda which is her home medication. Patient was also started on Risperdal q.h.s. because she anticipated she would not be able to tolerate blood draws to get a Depakote level and it was thought that patient would need an alternative mood stabilizer. Patient started to stabilize, became more calm and though singing in the hallway, was no longer singing in angry song which she agreed was an improvement. Also she denied any SI; patient was sleeping much better and said she feels a little more calm and that now i don't feel like i'm being tortured and that my tortures have gotten bored and are leaving me alone... -discussed medication; she understands that maybe it's the risperdal helping or maybe it's the combination of Risperdal and depakote...she accepts that soon, she'll either have to allow for blood draw or financial writer will have to DC depakote. Over subsequent days, patient became much improved, with organized behavior and speech, linear and logical thought process and with better mood and manic symptoms resolved. She also became optimistic and hopeful about continued stability. Discussed diagnosis at length and pt said she grudgingly accepts bipolar diagnosis. Pt shares that when she was young, she was forced to go to doctors, take meds and got diagnosed as a kid with bipolar and feels she suffered stigma of this label...however, given recent events she feels it's probably the right diagnosis. Discussed medication regimen and how it will likely take an extended time to figure out the most effective regimen with the least medications. Given that she's feeling more stable, she agrees to remain on Latuda and Risperdal and even Depakote, consenting to needed blood draw (requesting experienced phleb and nurses to hold her hand) At one pt during admission, patient thought she had a tampon that remained imbedded; gynecological consult ordered and speculum exam and x-ray revealed no tampon; patient handled invasive procedure well. Patient continued to do well, remained stable, in good mood, organized in speech and behavior and though she could be exuberant, was in good behavioral and impulse control, appropriate peers and staff throughout her time on the unit. She was engaged in treatment exhibited good judgment and insight into her illness and need for treatment. Towards the end of hospital stay, labs were drawn and patient had elevated ammonia so Depakote dose was lowered; this was discussed with patient who understood. Patient worked with team regarding discharge planning. Patient felt ready for discharge, feeling stable and optimistic, future oriented. Good mood, depression gone. Patient's adoptive mother involved who is supportive and helped with dispo planning. She of course remains vulnerable to decompensation as she has been newly diagnosed and newly started on mood stabilizers, however she is doing well, at baseline, wants to discharge, has remained stable and in good behavioral and impulse control, has good insight and judgment into her psychiatric illness and need for medication and wants to continue treatment and is appropriate to continue treatment in the community. She was not in imminent risk for harm to self or others and request for discharge honored. Meds: risperdal 3mg qhs Depakote ER 1000 mg at bed Latuda 60mg qhs Doxazosin 1mg qhs Time spent discussing smoking cessation with patient: 3 to 10 minutes Status at Discharge Functional status at discharge: independent ambulation Overall status at discharge: patient is back to baseline Time Spent with Patient Time attestation: Total time managing care of this patient today __40__ minutes. Time spent: Greater than 30 minutes Discharge Plan Discharge Anticipated Discharge Date/Time: 10/10/23 11:30 Patient Disposition: Retirement Discharge Diagnosis: Bipolar I disorder, severe, most recent episode manic, in full remission Referrals: [facility] [Other] - 10/30/23 2:30 pm [facility] [Other] - 1 Day ([facility] program provides case management, housing search assistance, and substance use treatment referrals for people experiencing homelessness including those living in area shelters, on the streets, or temporarily staying with friends or relatives.) [facility] [Other] - 1 Day (They can help with [place] health care facility placement, as well as basics like ride support, obtaining needed state documentation. ) [facility] [Other] - 1 Day (They have a [facility] that can support you in securing [facility] after you go to [facility]. ) [facility] [Other] - 1 Day Physician,None [Primary Care Provider] - 1 Week Discharge Medications: New divalproex 500 mg Tablet Extended Release 24 Hr 1,000 mg PO BEDTIME 7 Days Qty: 14 0RF risperidone 3 mg Tablet 3 mg PO BEDTIME 7 Days Qty: 7 0RF divalproex [Depakote ER] 500 mg tablet extended release 24 hr 1,000 mg PO BEDTIME 30 Days Qty: 60 1RF risperidone [Risperdal] 3 mg tablet 3 mg PO BEDTIME 30 Days Qty: 30 1RF lurasidone [Latuda] 60 mg tablet 60 mg PO DAILY@1800 30 Days Qty: 30 1RF Rx Instructions: must administer with food (at least 350 calories) doxazosin 1 mg tablet 1 mg PO BEDTIME 30 Days Qty: 30 1RF trazodone 150 mg tablet 150 mg PO BEDTIME 30 Days Qty: 30 0RF hydroxyzine HCl 25 mg tablet 25 mg PO BID PRN (Reason: anxiety) 30 Days Qty: 90 0RF Continued norethindrone (contraceptive) 0.35 mg tablet 0.35 mg PO DAILY doxazosin 1 mg Tablet 1 mg PO BEDTIME 7 Days Qty: 7 0RF Protocol: Hold for SBP< HOLD for SBP < : 90 hydroxyzine HCl 25 mg Tablet 25 mg PO TID PRN (Reason: Anxiety) 7 Days Qty: 20 0RF lorazepam 1 mg Tablet 1 mg PO DAILY PRN (Reason: Anxiety) 7 Days Qty: 14 0RF Changed lurasidone 60 mg tablet 60 mg PO DAILY@1800 7 Days Qty: 7 0RF Rx Instructions: must administer with food (at least 350 calories) trazodone 150 mg tablet 150 mg PO BEDTIME 7 Days Qty: 7 0RF Discontinued divalproex [Depakote] 500 mg Tablet,Delayed Release (Dr/Ec) 500 mg PO BID Discharge Orders: Discharge Order (Routine); Ordered 10/10/23 Ordered By: Cheko Rai Diet: Regular diet Activity on Discharge: As tolerated Stand Alone Forms: Patient Portal Discharge page, Community Support Print Language: Thai Care Plan Goals: Maintain mood and safe behaviors Take medications as prescribed Practice coping skills Continue with outpatient providers and reach out to them as needed Health Concerns: Mood stability and behaviors Plan of Treatment: Follow up with your PCP, psychiatric provider and other outpatient providers regarding above concerns Take medications as prescribed Assessment: Risk assessment at time of discharge:? Patient was interviewed prior to discharge and found to be fully oriented and without any SI or HI. Patient has improved insight and judgment and wants to continue treatment. Patient is not in imminent risk of harm to self or others and has a safety plan that includes presenting to the closest ER or calling 911 if feeling unsafe.? Patient has been observed closely by nursing and unit staff throughout admission; patient has not engaged in any behaviors that suggest dangerousness to self or others and has demonstrated appropriate behaviors and impulse control Discharge Date/Time: 10/10/23 11:59
[2023-10-10] MEDS: Lurasidone HCl 20 MG TABLET 60 MG PO (11:26)
== END 2023-10-10 11:59 | disposition home or self-care (01) | DRG 885 ==
LOC: HO.ED 09-24 07:54 → HO.PM5 09-25 13:21
PROVIDERS: Advanced Practice Midwife; Physician Assistant; Admitting Provider Psychiatry & Neurology Psychiatry; Emergency Provider Student in an Organized Health Care Education/Training Program; Visit Provider Psychiatry & Neurology Psychiatry
DX: F31.64 Bipolar disorder, current episode mixed, severe, with psychotic features (principal); Z59.02 Unsheltered homelessness; F17.210 Nicotine dependence, cigarettes, uncomplicated; Z71.6 Tobacco abuse counseling; F43.10 Post-traumatic stress disorder, unspecified; Z91.148 Patient's other noncompliance with medication regimen for other reason; Z20.822 Contact with and (suspected) exposure to COVID-19; Z79.899 Other long term (current) drug therapy
CPT/HCPCS: 0353U; 36415; 72170; 76830; 76856; 80053; 80076; 80164; 80307; 81001; 81003; 81025; 82140; 84702; 85025; 87480; 87510; 87635; 87660; 93005; 99285; J1200; J1630; J2060; S9485

== ENCOUNTER → 2023-09-24 09:17 | Outpatient (BNV) | payer MEDICAID, SELFPAY | PROVIDERS: Emergency Provider Student in an Organized Health Care Education/Training Program; Visit Provider Internal Medicine Cardiovascular Disease | DX: I45.81 Long QT syndrome (principal) | CPT/HCPCS: 93010 ==

== ENCOUNTER → 2023-09-25 13:10 | Outpatient (BNV) | payer MEDICAID, SELFPAY | PROVIDERS: Admitting Provider Psychiatry & Neurology Psychiatry; Emergency Provider Student in an Organized Health Care Education/Training Program; Visit Provider Psychiatry & Neurology Psychiatry | DX: F31.64 Bipolar disorder, current episode mixed, severe, with psychotic features (principal); F43.11 Post-traumatic stress disorder, acute | CPT/HCPCS: 90792; 99231; 99232; 99239; 99499 ==

== ENCOUNTER → 2023-09-25 13:10 | Outpatient (BNV) | payer MEDICAID, SELFPAY | PROVIDERS: Admitting Provider Psychiatry & Neurology Psychiatry; Emergency Provider Student in an Organized Health Care Education/Training Program; Visit Provider Obstetrics & Gynecology | DX: N94.9 Unspecified condition associated with female genital organs and menstrual cycle (principal); Z20.2 Contact with and (suspected) exposure to infections with a predominantly sexual mode of transmission; R10.2 Pelvic and perineal pain | CPT/HCPCS: 99222; 99232 ==

== ENCOUNTER 2025-03-18 18:38 | Inpatient (IN) | payer MEDICAID, SELFPAY ==
--- OUTSIDE RECORDS SUMMARY | 2025-03-18 00:36 | XMS_ITS | Encounter Summary ---
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 MD at [facility] END[facility]COPY DENTAL SURGERY ESOPHAGOGASTRODUODENOSCOPY N/A 07/10/2017 Performed by Dong Velazquez MD at [facility] Home Medications Prior to Admission medications Medication Sig acetaminophen (TYLENOL) 325 mg tablet 650 mg albuterol 90 mcg/actuation inhaler 2 puffs, Every 4 hours PRN buPROPion (WELLBUTRIN XL) 150 MG ER 24 hr tablet No dose, route, or frequency recorded. cetirizine (ZYRTEC) 10 MG tablet 10 mg, Oral, Daily cyclobenzaprine (FLEXERIL) 10 MG tablet 10 mg, Oral, 2 times daily PRN docusate sodium (COLACE) 100 MG capsule 100 mg, Oral fluticasone propion-salmeteroL (ADVAIR DISKUS) 100-50 mcg/dose DISKUS 1 puff, 2 times daily gabapentin (NEURONTIN) 300 MG capsule 300 mg, Oral, 3 times daily hydrocortisone 2.5 % ointment Topical, 2 times daily, Until symptoms resolve hydrOXYzine (VISTARIL) 25 MG capsule 25 mg, As needed ibuprofen (ADVIL,MOTRIN) 800 MG tablet 800 mg, Oral ketoconazole 2 % cream Topical, Daily, Until symptoms resolve LACTASE ENZYME 4,500 unit Tab tablet 1 tablet lurasidone (LATUDA) 60 mg tablet 60 mg, Nightly norethindrone (MORALES) 0.35 mg tablet 0.35 mg, Oral oxyCODONE 5 MG immediate release tablet 5 mg, Oral psyllium (METAMUCIL SUGAR-FREE, ASPART,) 3.4 gram/5.8 gram Powd 1.7 g, Oral simethicone (MYLICON) 80 mg chewable tablet 80 mg, Oral SRONYX 0.1-20 mg-mcg per tablet TAKE 1 TABLET BY MOUTH EVERY DAY SYMBICORT 160-4.5 mcg/actuation inhaler INHALE 1 PUFF TWICE A DAY BY INHALATION ROUTE. traZODone (DESYREL) 150 MG tablet 150 mg, Nightly ulipristaL (LORENZO) 30 mg Tab 30 mg, Oral valACYclovir (VALTREX) 500 MG tablet No dose, route, or frequency recorded. . Allergies Allergies Allergen Reactions Grass Pollen Unknown Latex Tape [Adhesive Tape-Silicones] Social and Family History Social History Tobacco Use Smoking status: Every Day Current packs/day: 0.25 Types: Cigarettes Smokeless tobacco: Never Tobacco comments: quitting now down to 2 daily Substance Use Topics Alcohol use: Yes Comment: oaccasionally Social History Substance and Sexual Activity Drug Use Yes Types: Marijuana, Hallucinogens Comment: pot daily Family History Adopted: Yes Physical Exam Vital Signs: BP 101/63 Pulse 95 Temp 36 ??C (96.8 ??F) Resp 18 SpO2 98% Physical Exam Constitutional: Vital signs reviewed; well nourished & well developed; no acute distress HENT: Atraumatic nose; mucosa moist Eyes: PERRL, no conjunctival injection Cardiovascular: regular rate and rhythm; no lower extremity edema Pulmonary: normal effort, clear to auscultation bilaterally Neurologic: Grossly non-focal. Vision is grossly intact to both eyes, EOM grossly intact, PERRL. Hearing is grossly intact to bothears. No olfactory deficits are noted. No obvious facial sensory deficits are noted. Motor functionof the face is equal and symmetric. Shoulder shrug is intact. Tongue is in the midline. Skin: Warm and dry; no rash appreciated Psychiatric: Alert and oriented; elevated affect, tangential speech Laboratory Testing Labs Reviewed - No data to display Radiology Testing No orders to display MDM Briefly, 30-year-old female with underlying psychiatric illness who presents reporting alcohol use and aggressive behavior. Very tangential and disorganized. Given olanzapine orally. Labs are reassuring including negative toxicologic screen, normal blood counts and chemistries. Non. There is no evidence of acute traumatic injury, acute infection, intoxication or withdrawal syndrome to a degree that would preclude further psychiatric evaluation or treatment. This patient is medically stable. TOOL GRINDER OPERATOR EXTERNAL will be contacted for further evaluation and disposition. Clinical Impressions as of 03/18/25 0119 Alcoholic intoxication without complication Disposition: Pending TOOL GRINDER OPERATOR EXTERNAL garrison Cooper MD Portions of this note were dictated utilizing speech recognition software. Mauri Cooper MD 03/18/25 0621 documented in this encounter Plan of Treatment Not on file documented as of this encounter Procedures Procedure Name Priority Date/Time Associated Diagnosis Comments TOXICOLOGY SCREEN, URINE STAT 03/18/2025 1:57 AM EDT documented in this encounter Results * (ABNORMAL) Toxicology screen, urine (03/18/2025 1:57 AM EDT) URINE CANNABINOIDS Positive(A) [facility] Comment:Cutoff: 50 ng/mL URINE COCAINE METAB [facility]ECTED [facility] Comment:Cutoff: 300 ng/mL URINE AMPHETAMINES [facility]ED [facility] Comment:Cutoff: 1000 ng/mL URINE METHADONE NONE DETECTED [facility] Comment:Cutoff: 300 ng/mL URINE OPIATES N[facility]ECTED [facility] Comment:Cutoff: 300 ng/mL URINE PHENCYCLIDINE NONE [facility]ECTED [facility] Comment:Cutoff: 25 ng/mL URINE OXYCODONE NONE DETECTED [facility] Comment:Cutoff: 300 ng/mL URINE BARBITURATES NONE DETECTED [facility] Comment:Cutoff: 200 ng/mL URINE BENZODIAZEPINE [facility]ED [facility] Comment:Cutoff: 200 ng/mL URINE BUPRENORPHINE [facility]ECTED [facility] Comment:Cutoff: 5 ng/mL Fentanyl, urine [facility]ECTED [facility] Comment: Cutoff: 5 ng/mL INTERPRETATION FOR TOXICOLOGY PANEL: These results are unconfirmed and should be used for Medical Treatment purposes only. Urine (Urine) 03/18/2025 1:5 7 AM EDT 03/18/2025 2:20 AM EDT Mauri Cooper MD URINE ORDERABLES Final Result [facility] [address] [place] [address] documented in this encounter Visit Diagnoses Diagnosis Depression- Primary Depressive disorder, not elsewhere classified Alcoholic intoxication without complication Mental health problem Unspecified mental or behavioral problem History of bipolar disorder Bipolar disorder Bipolar disorder, unspecified Alcoholic intoxication without complication Bipolar disorder Bipolar disorder, unspecified documented in this encounter Admitting Diagnoses Diagnosis Alcoholic intoxication without complication Bipolar disorder Bipolar disorder, unspecified documented in this encounter Administered Medications Inactive Administered Medications - up to 3 most recent administrations Medication Order MAR Action Action Date Dose Rate Site hydrOXYzine (ATARAX) tablet 25 mg 25 mg, Oral, Once, On Sun03/18/25 at 1800, For 1 dose Given 03/18/2025 6:10 PM EDT 25 mg LORazepam (ATIVAN) tablet 2 mg 2 mg, Oral, Once, On Sun03/18/25 at 1215, For 1 dose Given 03/18/2025 12:34 PM EDT 2 mg midazolam (PF) (VERSED) injection 5 mg 5 mg, Intramuscular, Once, On Sun03/18/25 at 1215, For 1 dose Given 03/18/2025 12:32 PM EDT 5 mg Left Deltoid nicotine polacrilex (NICORETTE) gum 2 mg 2 mg, Buccal, Once, On Sun03/18/25 at 1745, For 1 dose, Not to exceed 24 pieces/24 hours Given 03/18/2025 5:40 PM EDT 2 mg OLANZapine (ZyPREXA ZYDIS) disintegrating tablet 15 mg 15 mg, Oral, Once, On Sun03/18/25 at 0130, For 1 dose, Remove from foil blister by peeling back (do NOT push tablet through foil). Given 03/18/2025 3:27 AM EDT 15 mg OLANZapine (ZyPREXA) injection 10 mg 10 mg, Intramuscular, Once, On 10/1/25 at 1215, For 1 dose, Reconstitute with 2.1 mL sterile water. Dissolve contents completely and use within 1 hour. Discard unused portion. Separate IV/IM administration of olanzapine from IV/IM benzodiazepines to reduce risk of excessive sedation and cardiorespiratory depression. Given 03/18/2025 12:32 PM EDT 10 mg Left Deltoid documented in this encounter Active and Recently Administered Medications Times are shown in EDT. Scheduled Medication Order 03/16/2025 03/17/2025 03/18/2025 hydrOXYzine (ATARAX) tablet 25 mg (COMPLETED) 25 mg, Oral, Once, On Sun03/18/25 at 1800, For 1 dose 1810 (Given - Provid er: Geovany Bird RN) LORazepam (ATIVAN) tablet 2 mg (COMPLETED) 2 mg, Oral, Once, On Sun03/18/25 at 1215, For 1 dose 1234 (Given - Provid er: Geovany Bird RN) midazolam (PF) (VERSED) injection 5 mg (COMPLETED) 5 mg, Intramuscular, Once, On Sun03/18/25 at 1215, For 1 dose 1232 (Given - Provid er: Geovany Bird RN) nicotine polacrilex (NICORETTE) gum 2 mg (COMPLETED) 2 mg, Buccal, Once, On Sun03/18/25 at 1745, For 1 dose, Not to exceed 24 pieces/24 hours 1740 (Given - Provid er: Geovany Bird RN) OLANZapine (ZyPREXA ZYDIS) disintegrating tablet 15 mg (COMPLETED) 15 mg, Oral, Once, On Sun03/18/25 at 0130, For 1 dose, Remove from foil blister by peeling back (do NOT push tablet through foil). 0327 (Given - Provid er: Ximena Singh RN - Comment: Patient initially declined medication ) OLANZapine (ZyPREXA ZYDIS) disintegrating tablet 15 mg 15 mg, Oral, Once, On Sun03/18/25 at 1215, For 1 dose, Remove from foil blister by peeling back (do NOT push tablet through foil). 1345 (Not Given - Pr ovider: Geovany Bird RN - Reason: Patient/family refused) OLANZapine (ZyPREXA) injection 10 mg (COMPLETED) 10 mg, Intramuscular, Once, On Sun03/18/25 at 1215, For 1 dose, Reconstitute with 2.1 mL sterile water. Dissolve contents completely and use within 1 hour. Discard unused portion. Separate IV/IM administration of olanzapine from IV/IM benzodiazepines to reduce risk of excessive sedation and cardiorespiratory depression. 1232 (Given - Provid er: Geovany Bird RN) documented in this encounter Care Teams Heel Attacher Wood Relationship Specialty Start Date End Date Roel Churchill MD [address] [place] [phone] [email or web address] PCP - General Family Medicine 12/24/24 documented as of this encounter Additional Source Comments The information contained in this document represents components of the legal health record. It is not the complete legal health record.[facility]
--- OUTSIDE RECORDS SUMMARY | 2025-03-18 05:02 | XMS_ITS | Encounter Summary ---
Author Organization [facility] Address [address] [place] [phone] Phone Care Team Providers Care Education Program Specialist Name Role Phone Roel Churchill MD Primary Care Prov ider Encounter Details Date Type Department Care Team (Late st Contact Info) Description 03/18/2025 5:02 AM EDT Hospital Encounter [facility] Specimen Processing [address] [place] [address] Mauri Cooper MD [address] [place] [address] [email or web address] Social History Tobacco Use Types Packs/Day Years [...] housing (staying in a hotel, in a halfway, living outside on the street, on a [...] 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 Wish to be (Past 1 Month) No 025 1:14 AM Ximena Hampton RN 2. Non-Specific Active Suici parag Thoughts (Past 1 Month) No 03/18/2025 1:14 AM EDT Sherri Singh, RN 6. Suicidal Behavior (Lifetime) No 1:14 AM EDT Ximena Singh RN documented as of this encounter Plan of Treatment Not on file documented as of this encounter Procedures Procedure Name Priority Date/Time Associated Diagnosis Comments ETHANOL, BLOOD STAT 03/18/2025 5:04 AM EDT Alcoholic intoxication without complication HCG, SERUM QUALITATIVE Routine 03/18/2025 5:04 AM EDT Alcoholic intoxication without complication LFTS (HEPATIC PANEL) STAT 03/18/2025 5:04 AM EDT Alcoholic intoxication without complication CBC AND DIFFERENTIAL STAT 03/18/2025 5:04 AM EDT Alcoholic intoxication without complication MAGNESIUM STAT 03/18/2025 5:04 AM EDT Alcoholic intoxication without complication ACETAMINOPHEN LEVEL STAT 03/18/2025 5 :04 AM EDT Alcoholic intoxication without complication SALICYLATES STAT 03/18/2025 5:04 AM EDT Alcoholic intoxication without complication BASIC METABOLIC PANEL STAT 03/18/2025 5:04 AM EDT Alcoholic intoxication without complication documented in this encounter Results * HCG, serum qualitative (03/18/2025 5:04 AM EDT) HCG, QUALITATIVE Negative Negative IU/L [facility] Blood 03/18/2025 5:04 AM EDT 03/18/2025 5:10 AM EDT us Mauri Cooper MD LAB BLOOD ORDERABLES Final Resu lt [facility] [address] [place] [address] * CBC and differential (03/18/2025 5:04 AM EDT) WBC 8.55 4.00 - 11.00 K/uL [facility] RBC 4.15 4.00 - 5.20 M/uL [facility] HGB 12.6 12.0 - 16.0 g/dL [facility] HCT 37.0 36.0 - 46.0 % [facility] PLT 318 150 - 450 K/uL [facility] MCV 89.2 80.0 - 100.0 fL [facility] MCH 30.4 27.0 - 31.0 pg [facility] MCHC 34.1 32.0 - 36.0 g/dL [facility] RDW 12.4 11.5 - 14.5 % [facility] MPV 9.6 8.4 - 12.0 fL [facility] NRBC 0.00 0.00 /100 WBCs [facility] ABSOLUTE NRBC 0.00 0.00 K/uL [facility] DIFF METHOD Auto [facility] NEUTS 52.0 48.0 - 76.0 % [facility] LYMPHS 34.6 18.0 - 41.0 % [facility] MONOS 9.5 4.0 - 11.0 % [facility] EOS 2.8 0.0 - 5.0 % [facility] BASOS 0.7 0.0 - 1.5 % [facility] Granulocytes, immature (%) 0.4 0.0 - 0.9 % [facility] ABSOLUTE NEUTS 4.45 1.92 - 7.60 K/uL [facility] ABSOLUTE LYMPHS 2.96 0.72 - 4.10 K/uL [facility] ABSOLUTE MONOS 0.81 0.16 - 1.10 K/uL [facility] ABSOLUTE EOS 0.24 0.00 - 0.50 K/uL [facility] ABSOLUTE BASOS 0.06 0.00 - 0.15 K/uL [facility] Granulocytes, immature 0.03 0.00 - 0.09 K/uL [facility] Blood 03/18/2025 5:04 AM EDT 03/18/2025 5:10 AM EDT us Mauri Cooper MD LAB BLOOD ORDERABLES Final Resu lt [address] [address] * (ABNORMAL) Basic metabolic panel (03/18/2025 5:04 AM EDT) SODIUM 139 133 - 146 mmol/L [facility] CHLORIDE 104 96 - 108 mmol/L [facility] POTASSIUM 3.3 3.3 - 5.1 mmol/L [facility] CO2 25 21 - 35 mmol/L [facility] BUN 5(L) 6 - 19 mg/dL [facility] CREATININE 0.40(L) 0.5 - 1.5 mg/dL [facility] GLUCOSE 152(H) 70 - 99 mg/dL [facility] CALCIUM 8.9 8.4 - 10.3 mg/dL [facility] EGFR >120 >59 mL/min/1.7 3m2 [facility] Comment:Estimated glomerular filtration rate calculated using the CKD-EPI refit equation. ANION GAP 13 10 - 20 mmol/L [facility] Blood 03/18/2025 5:04 AM EDT 03/18/2025 5:10 AM EDT us Mauri Cooper MD LAB BLOOD ORDERABLES Final Resu lt Performing Organization Address City/[facility]/ZIP Co de Phone Number [address] [address] * LFTs (hepatic panel) (03/18/2025 5:04 AM EDT) ALKALINE PHOSPHATASE 77 39 - 117 U/L [facility] TOTAL BILIRUBIN <0.2 0.0 - 1.2 mg/dL [facility] DIRECT BILIRUBIN <0.1 0.0 - 0.2 mg/dL [facility] Bilirubin (Indirect) NOT CALCULATED 0 - 1.5 mg/dL [facility] AST 12 0 - 37 U/L [facility] ALT 15 0 - 40 U/L [facility] TOTAL PROTEIN 6.7 6.5 - 8.0 g/dL [facility] ALBUMIN 4.1 3.9 - 4.8 g/dL [facility] GLOBULIN 2.6 1 - 4.8 g/dL [facility] A/G Ratio 1.58 1.00 - 4.80 RATIO [facility] Blood 03/18/2025 5:0 4 AM EDT 03/18/2025 5:10 AM EDT us Mauri Cooper MD LAB BLOOD ORDERABLES Final Resu lt Performing Organization Address City/[facility]/ZIP Co de Phone Number [address] [address] * Magnesium (03/18/2025 5:04 AM EDT) MAGNESIUM 1.9 1.6 - 2.6 mg/dL [facility] Blood 03/18/2025 5:04 AM EDT 03/18/2025 5:10 AM EDT us Mauri Cooper MD LAB BLOOD ORDERABLES Final Resu lt Performing Organization Address [facility] Co de Phone Number [address] [phone] * Ethanol, blood (03/18/2025 5:04 AM EDT) ETHANOL <10 <10 mg/dL [facility] Blood 03/18/2025 5:04 AM EDT 03/18/2025 5:10 AM EDT us Mauri Cooper MD LAB BLOOD ORDERABLES Final Resu lt Performing Organization Address [facility] Co de Phone Number [address] [address] * (ABNORMAL) Acetaminophen level (03/18/2025 5:04 AM EDT) ACETAMINOPHEN <5.0(L) 15.0 - 30.0 ug/mL [facility] Blood 03/18/2025 5:04 AM EDT 03/18/2025 5:10 AM EDT us Mauri Cooper MD LAB BLOOD ORDERABLES Final Resu lt Performing Organization Address City/[facility]/ZIP Co de Phone Number [address] [address] * (ABNORMAL) Salicylates (03/18/2025 5:04 AM EDT) SALICYLATES <0.3(L) 2.8 - 19.9 mg/dL [facility] Blood 03/18/2025 5:04 AM EDT 03/18/2025 5:10 AM EDT us Mauri Cooper MD LAB BLOOD ORDERABLES Final Resu lt Performing Organization Address [facility] Co de Phone Number [address] [phone] documented in this encounter Visit Diagnoses Diagnosis Alcoholic intoxication without complication documented in this encounter Care Teams Education Program Specialist Relationship Specialty Start Date End Date Roel Churchill MD [address] [place] [phone] [email or web address] PCP - General Family Medicine 12/24/24 documented as of this encounter Additional Source Comments The information contained in this document represents components of the legal health record. It is not the complete legal health record.[facility]
--- OUTSIDE RECORDS SUMMARY | 2025-03-18 18:47 | XMS_ITS | Clinical Summary ---
Author Organization [facility] Address [address] [address] Phone Care Team Providers Care It Communications Manager Name Role Phone Roel Churchill MD Primary Care Prov ider Allergies Active Allergy Reactions Criticality Noted Date Comments Grass Pollen Unknown 02/05/2025 Latex 11/22/2022 Adhesive Tape-Silicones 12/31/2018 Medications * This document contains information received from the source organization and may not represent a complete record from that organization. albuterol 90 mcg/actuation inhaler Inhale 2 puffs into the lungs every 4 (four) hours as needed for wheezing. Active SRONYX 0.1-20 mg-mcg per tabletIndications :Other general counseling and advice for contraceptive management TAKE 1 TABLET BY MOUTH EVERY DAY 28 tablet 2 9 Active buPROPion (WELLBUTRIN XL) 150 MG ER 24 hr tablet 2 Active traZODone (DESYREL) 150 MG tablet Take 150 mg by mouth nightly at bedtime. 2 Active valACYclovir (VALTREX) 500 MG tablet 2 Active LACTASE ENZYME 4,500 unit Tab tablet 1 tablet. 1 Active cyclobenzaprine (FLEXERIL) 10 MG tablet Take 1 tablet (10 mg total) by mouth 2 (two) times a day as needed. 20 tablet 2 Active simethicone (MYLICON) 80 mg chewable tablet Take 80 mg by mouth. 2 Active psyllium (METAMUCIL SUGAR-FREE, ASPART,) 3.4 gram/5.8 gram Powd Take 1.7 g by mouth. 2 Active oxyCODONE 5 MG immediate release tablet Take 5 mg by mouth. 2 Active norethindrone (MORALES) 0.35 mg tablet Take 0.35 mg by mouth. 2 Active ibuprofen (ADVIL,MOTRIN) 800 MG tablet Take 800 mg by mouth. 2 Active gabapentin (NEURONTIN) 300 MG capsule Take 300 mg by mouth 3 (three) times a day. Active docusate sodium (COLACE) 100 MG capsule Take 100 mg by mouth. 2 Active acetaminophen (TYLENOL) 325 mg tablet Take 650 mg by mouth. 2 Active SYMBICORT 160-4.5 mcg/actuation inhaler INHALE 1 PUFF TWICE A DAY BY INHALATION ROUTE. 5 Active ulipristaL (OLRENZO) 30 mg Tab Take 30 mg by mouth. 4 Active ketoconazole 2 % cream Apply topically daily. Until symptoms resolve 15 g 5 Active hydrocortisone 2.5 % ointment Apply topically 2 (two) times a day. Until symptoms resolve 20 g 5 Active lurasidone (LATUDA) 60 mg tablet Take 60 mg by mouth nightly at bedtime. Active fluticasone propion-salmetero L (ADVAIR DISKUS) 100-50 mcg/dose DISKUS Inhale 1 puff into the lungs 2 (two) times a day. Active cetirizine (ZYRTEC) 10 MG tablet Take 10 mg by mouth daily. Active hydrOXYzine (VISTARIL) 25 MG capsule Take 25 mg by mouth as needed for anxiety. Active Active Problems Problem Noted Date Diagnosed Date Alcoholic intoxication without complication 06/2024 Depression 03/18/2025 Disorganized thought process 02/24/2025 Bipolar disorder 02/05/2025 Bipolar disorder, most recent episode manic 12/17 Encounters Date Type Department Care Team Description 03/18/2025 5:02 AM EDT Hospital Encounter [facility] Spec[facility] Processing [address] [place] [address] Mauri Cooper MD 03/18/2025 12:36 AM EDT - 03/18/2025 6:33 PM EDT Hospital Encounter [facility] Emergency [address] [place] [address] Mauri Cooper MD Morse, Peter, MD Peterson, Michell Valadez MD, PhD Discharge Disposition: [facility] 03/18/2025 Transcribe Orders [facility] Specimen Processing [address] [place] [address] Mauri Cooper MD Alcoholic intoxication without complication (Primary Dx) 03/18/2025 Transcribe Orders [facility] Specimen Processing [address] [place] [address] Mauri Cooper MD Alcoholic intoxication without complication (Primary Dx) 03/18/2025 Transcribe Orders [facility] Specimen Processing [address] [place] [address] Mauri Cooper MD Alcoholic intoxication without complication (Primary Dx) 02/24/2025 1:28 PM EDT - 02/25/2025 3:27 PM EDT Hospital Encounter [facility] Emergency [address] [place] [address] Barrera Berry MD Perez, Alberto Juan Ignacio, MD Kanter, MD Elizabeth Davis, MD Az Vargas Stephen G, MD Discharge Disposition: [facility] 02/05/2025 5:57 PM EDT - 02/06/2025 11:46 AM EDT Hospital Encounter [address] [address] Bradley Lizarraga MD Savage, Justin G, Bebeto Wilson MD Discharge Disposition: [facility] 12/24/2024 3:40 PM EDT Office Visit [facility] at [address] [place] [address] Anel Ralph, KENDY Craig, Christiano Lindsey PA-C Hives (Primary Dx); Rash of neck; Tinea cruris from Last 3 Months Immunizations Immunization Administration Dates Next Due COVID-19 (Pre-04/09) Pfizer Vaccine, mRNA, PF 08/24/2020,07/27/2020 DTP 03/11/1997, 5,1993,08/16,1993 HPV,quadrivalent 11/04/2008 Hepatitis B 06/23/1994,1993,1993 Hib,HbOC 06/23/1994, 4,1993,06/16 INFLUENZA, SPLIT VIRUS, TRIV ALENT W/ PRESERVATIVE IM 04/01/2009,04/17/2008 Influenza Quadrivalent Prese rvative Free IM 03/07/2019 MMR 03/09/1998,06/23/1994 Meningococcal ACWY, unspecif ied formulation 05/23/2006 Meningococcal MCV4P 05/23/2006 Pneumococcal polysaccharide PPSV23 07/26/2017 Polio - OPV 03/11/1997, 5,1993,06/16 Td (adult),2 Lf Tetanus Toxo id, PF, Adsorbed 10/14/2004 Td, unspecified formulation 10/14/2004 Tdap 01/11/2022,04/03/2014,10/11/2009 Varicella 03/11/1997 Social History Tobacco Use Types Packs/Day Years Used Date Smoking Tobacco: Every Day Cigarettes Smokeless Tobacco: Never Tobacco Cessation:Ready to Q uit: Not Asked; Counseling Given: Not Answered Comments:quitting now down to 2 daily Alcohol Use Standard Drinks/Week Comments [...] housing (staying in a hotel, in a fpc, living outside on the street, on a [...] 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 on file Not on file Not on file Last Filed Vital Signs Vital Sign Reading Time Taken Comments Blood Pressure 135/83 03/18/2025 5:15 PM EDT Pulse 92 03/18/2025 5:15 PM EDT Temperature 36.7 C (98 F) 03/18/2025 5:15 PM EDT Respiratory Rate 16 03/18/2025 5:15 PM EDT Oxygen Saturation 99% 03/18/2025 5:15 PM EDT Inhaled Oxygen Concentration 40% 01/03/2018 2 :19 PM EDT Weight 108.9 kg (240 lb) 02/24/2025 1:55 PM EDT Height 165.1 cm (5' 5 ) 02/24/2025 1:55 PM EDT Body Mass Index 39.94 02/24/2025 1:55 PM EDT Plan of Treatment Health Maintenance Due Date Last Done Comments DEPRESSION SCREENING 2005 SMOKING Hx and SMOKELESS TOBACCO SCREENING 2006 PNEUMOCOCCAL VACCINES (0-49 years) (2 of 2 - PCV) 07/26/2018 07/26/2017 PAP SMEAR 03/31/2022 03/31/2019 INFLUENZA VACCINE (#1) 2025 9, 04/01/2009, 04/17/2008 COVID-19 VACCINE (2024- season) 2025 08/24/2020, 07/27/2020 Adult Td,Tdap Booster 01/12/2032 01/11/2022 , 04/03/2014, 10/11/2009, Additional history exists HIB VACCINES Completed 06/23/1994, 10/16, 1993, Additional history exists MENINGOCOCCAL VACCINES (ACWY) Aged Out 05/23/2006, 05/23/2006 No longer eligibl e based on patient's age to complete this topic HIV ONE-TIME SCREENING (18-65 YEARS) Completed 03/06/2019 HEPATITIS C SCREENING Completed 01/16/2022, 019 HEPATITIS A VACCINES Aged Out No long er eligible based on patient's age to complete this topic MENINGOCOCCAL VACCINES (B) Aged Out N o longer eligible based on patient's age to complete this topic Medical Devices Not on file Procedures Procedure Name Priority Date/Time Associated Diagnosis Comments HCG, SERUM QUALITATIVE Routine 03/18/2025 5:04 AM EDT Alcoholic intoxication without complication CBC AND DIFFERENTIAL STAT 03/18/2025 5:04 AM EDT Alcoholic intoxication without complication BASIC METABOLIC PANEL STAT 03/18/2025 5:04 AM EDT Alcoholic intoxication without complication LFTS (HEPATIC PANEL) STAT 03/18/2025 5:04 AM EDT Alcoholic intoxication without complication MAGNESIUM STAT 03/18/2025 5:04 AM EDT Alcoholic intoxication without complication ETHANOL, BLOOD STAT 03/18/2025 5:04 AM EDT Alcoholic intoxication without complication ACETAMINOPHEN LEVEL STAT 03/18/2025 5 :04 AM EDT Alcoholic intoxication without complication SALICYLATES STAT 03/18/2025 5:04 AM EDT Alcoholic intoxication without complication TOXICOLOGY SCREEN, URINE STAT 03/18/2025 1:57 AM EDT TOXICOLOGY SCREEN, URINE STAT 02/24/2025 2:00 PM EDT ETHANOL, BLOOD STAT 02/05/2025 7:33 PM EDT HCG, SERUM QUALITATIVE STAT 02/05/2025 7:33 PM EDT BASIC METABOLIC PANEL STAT 02/05/2025 7:33 PM EDT CBC AND DIFFERENTIAL STAT 02/05/2025 7:33 PM EDT PAP TEST Routine 03/31/2019 12:00 AM EDT HEPATITIS C ANTIBODY, QUALITATIVE Routine 03/06/2019 6:36 AM EDT from Last 3 Months or Most Recently Relevant to Health Maintenance Results * Ethanol, blood (03/18/2025 5:04 AM EDT) Only the most recent of2 resultswithin the time period is included. ETHANOL <10 <10 mg/dL [facility] Blood 03/18/2025 5:04 AM EDT 03/18/2025 5:10 AM EDT us Mauri Cooper MD LAB BLOOD ORDERABLES Final Resu lt [address] [address] * HCG, serum qualitative (03/18/2025 5:04 AM EDT) Only the most recent of2 resultswithin the time period is included. HCG, QUALITATIVE Negative Negative IU/L [facility] Blood 03/18/2025 5:04 AM EDT 03/18/2025 5:10 AM EDT us Mauri Cooper MD LAB BLOOD ORDERABLES Final Resu lt Performing Organization Address City/[facility]/ZIP Co de Phone Number [address] [address] * LFTs (hepatic panel) (03/18/2025 5:04 AM EDT) ALKALINE PHOSPHATASE 77 39 - 117 U/L [facility] TOTAL BILIRUBIN <0.2 0.0 - 1.2 mg/dL [facility] DIRECT BILIRUBIN <0.1 0.0 - 0.2 mg/dL [facility] Bilirubin (Indirect) NOT CALCULATED 0 - 1.5 mg/dL [facility] AST 12 0 - 37 U/L [facility] ALT 15 0 - 40 U/L [facility] TOTAL PROTEIN 6.7 6.5 - 8.0 g/dL [facility] ALBUMIN 4.1 3.9 - 4.8 g/dL [facility] GLOBULIN 2.6 1 - 4.8 g/dL [facility] A/G Ratio 1.58 1.00 - 4.80 RATIO [facility] Blood 03/18/2025 5:04 AM EDT 03/18/2025 5:10 AM EDT us Mauri Cooper MD LAB BLOOD ORDERABLES Final Resu lt [address] [address] * CBC and differential (03/18/2025 5:04 AM EDT) Only the most recent of2 resultswithin the time period is included. WBC 8.55 4.00 - 11.00 K/uL [facility] RBC 4.15 4.00 - 5.20 M/uL [facility] HGB 12.6 12.0 - 16.0 g/dL [facility] HCT 37.0 36.0 - 46.0 % [facility] PLT 318 150 - 450 K/uL [facility] MCV 89.2 80.0 - 100.0 fL [facility] MCH 30.4 27.0 - 31.0 pg [facility] MCHC 34.1 32.0 - 36.0 g/dL [facility] RDW 12.4 11.5 - 14.5 % [facility] MPV 9.6 8.4 - 12.0 fL [facility] NRBC 0.00 0.00 /100 WBCs [facility] ABSOLUTE NRBC 0.00 0.00 K/uL [facility] DIFF METHOD Auto [facility] NEUTS 52.0 48.0 - 76.0 % [facility] LYMPHS 34.6 18.0 - 41.0 % [facility] MONOS 9.5 4.0 - 11.0 % [facility] EOS 2.8 0.0 - 5.0 % [facility] BASOS 0.7 0.0 - 1.5 % [facility] Granulocytes, immature (%) 0.4 0.0 - 0.9 % [facility] ABSOLUTE NEUTS 4.45 1.92 - 7.60 K/uL [facility] ABSOLUTE LYMPHS 2.96 0.72 - 4.10 K/uL [facility] ABSOLUTE MONOS 0.81 0.16 - 1.10 K/uL [facility] ABSOLUTE EOS 0.24 0.00 - 0.50 K/uL [facility] ABSOLUTE BASOS 0.06 0.00 - 0.15 K/uL [facility] Granulocytes, immature 0.03 0.00 - 0.09 K/uL [facility] Blood 03/18/2025 5:04 AM EDT 03/18/2025 5:10 AM EDT us Mauri Cooper MD LAB BLOOD ORDERABLES Final Resu lt Performing Organization Address [facility]/ZIP Co de Phone Number [address] [address] * Magnesium (03/18/2025 5:04 AM EDT) MAGNESIUM 1.9 1.6 - 2.6 mg/dL [facility] Blood 03/18/2025 5:04 AM EDT 03/18/2025 5:10 AM EDT Mauri Cooper MD LAB BLOOD ORDERABLES Final Resu lt Performing Organization Address [facility] Co de Phone Number [address] [address] * (ABNORMAL) Acetaminophen level (03/18/2025 5:04 AM EDT) ACETAMINOPHEN <5.0(L) 15.0 - 30.0 ug/mL [facility] Blood 03/18/2025 5:04 AM EDT 03/18/2025 5:10 AM EDT Mauri Cooper MD LAB BLOOD ORDERABLES Final Resu lt Performing Organization Address [facility] Co de Phone Number [address] [address] * (ABNORMAL) Salicylates (03/18/2025 5:04 AM EDT) SALICYLATES <0.3(L) 2.8 - 19.9 mg/dL [facility] Blood 03/18/2025 5:04 AM EDT 03/18/2025 5:10 AM EDT us Mauri Cooper MD LAB BLOOD ORDERABLES Final Resu lt Performing Organization Address [facility]/ZIP Co de Phone Number [address] [address] * (ABNORMAL) Basic metabolic panel (03/18/2025 5:04 AM EDT) Only the most recent of2 resultswithin the time period is included. [facility] SODIUM 139 133 - 146 mmol/L [facility] CHLORIDE 104 96 - 108 mmol/L [facility] POTASSIUM 3.3 3.3 - 5.1 mmol/L [facility] CO2 25 21 - 35 mmol/L [facility] BUN 5(L) 6 - 19 mg/dL [facility] CREATININE 0.40(L) 0.5 - 1.5 mg/dL [facility] GLUCOSE 152(H) 70 - 99 mg/dL [facility] CALCIUM 8.9 8.4 - 10.3 mg/dL [facility] EGFR >120 >59 mL/min/1.7 3m2 [facility] Comment:Estimated glomerular filtration rate calculated using the CKD-EPI refit equation. ANION GAP 13 10 - 20 mmol/L [facility] Blood 03/18/2025 5:04 AM EDT 03/18/2025 5:10 AM EDT us Mauri Cooper MD LAB BLOOD ORDERABLES Final Resu lt [facility] [address] [place] [address] * (ABNORMAL) Toxicology screen, urine (03/18/2025 1:57 AM EDT) Only the most recent of2 resultswithin the time period is included. [facility] URINE CANNABINOIDS Positive(A) NONE DETECTED [facility] Comment:Cutoff: 50 ng/mL URINE COCAINE METAB NONE DETECTED NONE DETECTED [facility] Comment:Cutoff: 300 ng/mL URINE AMPHETAMINES NONE DETECTED NONE DETECTED [facility] Comment:Cutoff: 1000 ng/mL URINE METHADONE NONE DETECTED NONE DETECTED [facility] Comment:Cutoff: 300 ng/mL URINE OPIATES NONE DETECTED NONE DETECTED [facility] Comment:Cutoff: 300 ng/mL URINE PHENCYCLIDINE NONE DETECTED NONE DETECTED [facility] Comment:Cutoff: 25 ng/mL URINE OXYCODONE NONE DETECTED NONE DETECTED [facility] Comment:Cutoff: 300 ng/mL URINE BARBITURATES NONE DETECTED NONE DETECTED [facility] Comment:Cutoff: 200 ng/mL URINE BENZODIAZEPINE NONE DETECTED NONE DETECTED [facility] Comment:Cutoff: 200 ng/mL URINE BUPRENORPHINE NONE DETECTED NONE DETECTED [facility] Comment:Cutoff: 5 ng/mL Fentanyl, urine NONE DETECTED NONE DETECTED [facility] Comment: Cutoff: 5 ng/mL INTERPRETATION FOR TOXICOLOGY PANEL: These results are unconfirmed and should be used for Medical Treatment purposes only. Urine (Urine) 03/18/2025 1:5 7 AM EDT 03/18/2025 2:20 AM EDT us Mauri Cooper MD URINE ORDERABLES Final Result [address] [address] * Pap Smear (03/31/2019 12:00 AM EDT) 03/31/2019 04/02/2019 2:5 8 PM EDT Narrative SEE NARRATIVE - 04/07/2019 12:09 PM EDT [address] [address] Billing Department Supervisor: Keily Thompson MD CORRESPONDENCE TRANSCRIBER Cytology Report FINAL DIAGNOSIS A. PAP SMEAR (SUREPATH) CE: SPECIMEN ADEQUACY: Satisfactory for evaluation; transformation zone present. INTERPRETATION: NEGATIVE FOR INTRAEPITHELIAL LESION OR MALIGNANCY. Coccobacilli consistent with shift in jen Electronically Signed Out By: KRYSTYNA Ann(ASCP) The Pap test is a screening test primarily for squamous cancers and precursors and has associated false-negative and false-positive results. New technologies such as liquid-based preparations may decrease but will not eliminate all false-negative results. Regular sampling and follow-up of unexplained clinical signs and symptoms are recommended to minimize false negative results. CLINICAL HISTORY Date of Last Menstrual Period: 03/29/2019 Other Clinical Conditions: Screening Pap SPECIMEN SOURCE A: PAP SMEAR (SUREPATH) CE Patient Name: ADRYAN SNYDER : 1995 (Age: 24) Sex: F Institution: [facility] Location: [facility] Date of Collection: 03/31/2019 Date of Reported: 04/07/2019 12:09 Results to: Roxy Sheets HOOP BENDING MACHINE OPERATOR us Roxy Sheets HOOP BENDING MACHINE OPERATOR CYTOLOGY ORDERABLES Final Resul t SEE NARRATIVE * Hepatitis C antibody, qualitative (03/06/2019 6:36 AM EDT) HCV NON-REACTIV E NON-REACTI VE [facility] Blood 03/06/2019 6:36 AM EDT 03/06/2019 7:14 AM EDT us Tessy Hill MD LAB BLOOD ORDERABLES Final Re sult [address] [address] from Last 3 Months or Most Recently Relevant to Health Maintenance Insurance [place] Advance Directives For more information, please contact: [phone] (9AM - 5PM [place], Sunday-Sunday) Documents on File Type Date Recorded Patient I&C Tech Expl anation Healthcare Proxy 01/15/2019 10:48 AM * Full Code (Presumed) (Latest Code Status on File) Date Activated Date Inactivated Comments 01/27/2019 5:27 PM 03/07/2019 12:39 PM * Full Code (Presumed) Date Activated Date Inactivated Comments 01/04/2019 2:03 PM 01/14/2019 1:17 PM Care Teams It Communications Manager Relationship Specialty Start Date End Date Roel Churchill MD [address] [place] [phone] [email or web address] PCP - General Family Medicine 12/24/24 Additional Source Comments The information contained in this document represents components of the legal health record. It is not the complete legal health record.[facility]
--- OUTSIDE RECORDS SUMMARY | 2025-03-18 18:47 | XMS_ITS | Encounter Summary ---
Author Organization [facility] Address [address] [facility] [address] [place] [address] Phone Care Team Providers Care Fixture Repairer Fabricator Name Role Phone Elmer Patrick MD Primary Care Provider [phone] Elmer Patrick MD Unavailable Roxy Sheets NP Primary Care Provider [phone] Pcp, Unknown Primary Care Provider Unavailabl e Rain Miranda MD Unavailable [phone] Rain Miranda MD Unavailable [phone] Bartolo Timmons MD Primary Care Provider [phone] Bartolo Timmons MD Unavailable Cassi Mcdaniels RN Unavailable Unknown, Unknown Primary Care Provider Roel Vega MD Primary Care Prov ider Encounter Details Date Type Department Care Team (Late st Contact Info) Description 07/10/2017 Procedure Pass [facility] Endoscopy Admitting Dept Virtual Department [address] [place] [id number] Social History Tobacco Use Types Packs/Day Years Used Date Smoking Tobacco: Every Day Cigarettes Smokeless Tobacco: Never Comments:quitting Alcohol Use Standard Drinks/Week Comments Not Asked 0 (1 standard drink = 0.6 oz pur e alcohol) oaccasionally Comments Unknown Sex and Gender Information Value Date Recorded Sex Assigned at Female 06/25/2017 9:38 AM EST Legal Sex Female 8:57 PM EDT Gender Identity Female 06/25/2017 9:38 AM EST Sexual Orientation Straight 06/25/2017 9: 38 AM EST documented as of this encounter Plan of Treatment Not on file documented as of this encounter Visit Diagnoses Not on filedocumented in this encounter Additional Health Concerns Infection Onset Date Last Indicated Resolved Time CoV-Exposed Comment:Recent close contact documented in the COVID-19 Amb Triage Form 07/06/2021 07/06/2021 07/27/2021 1:[address] documented as of this encounter Care Teams Fixture Repairer Fabricator Relationship Specialty Start Date End Date Elmer Patrick MD [address] [place] [phone] [email or web address] PCP - General Family Medicine 07/02/17 12/26/18 Roxy Sheets NP [address] [place] [phone] PCP - General Family Medicine 12/27/18 07/05/21 Pcp, Unknown PCP - General 07/06/21 08/29/22 Bartolo Timmons MD [address] [place] [address] [email or web address] PCP - General Internal Medicine 08/30/22 05/04/24 Unknown, MD Yovanny PCP - General 05/05/24 12/23/24 Roel Churchill MD [address] [place] [phone] [email or web address] PCP - General Family Medicine 12/24/24 Elmer Patrick MD [address] [place] [phone] [email or web address] Insurance Assigned Provider 09/21/18 02/22/19 Rain Miranda MD [address] [place], [place] [phone] [email or web address] Insurance Assigned Provider 11/26/21 01/21/22 Rain Miranda MD [address] [place] [address] [email or web address] Insurance Assigned Provider 04/23/22 10/21/22 Bartolo Timmons MD [address] [place] [phone] Insurance Assigned Provider 10/21/22 02/24/23 Cassi Mcdaniels RN [address] [place] [address] [email or web address] Director Of Residential ServicesR D Intern 12/08/22 12/13/22 documented as of this encounter Additional Source Comments The information contained in this document represents components of the legal health record. It is not the complete legal health record.[facility]
--- OUTSIDE RECORDS SUMMARY | 2025-03-18 18:47 | XMS_ITS | Encounter Summary ---
Author Organization [facility] Address [address] [place] [address] Phone Care Team Providers Care Remote Sensing Specialist Name Role Phone Roel Churchill MD Primary Care Prov ider Encounter Details Date Type Department Care Team (Latest Contact Info) Description 03/18/2025 Transcribe Orders [facility] Specimen Processing 30 [place] [address] Mauri Cooper MD [address] [place] [address] [email or web address] Alcoholic intoxication without complication (Primary Dx) Social History Tobacco Use Types Packs/Day Years [...] housing (staying in a hotel, in a long term, living outside on the street, on a [...] 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 Not on file Not on file Not on file documented as of this encounter Functional Status * Calculated C-SSRS Risk Score (Lifetime/Recent) Answer Date of Assessment Author No Risk Indicated 03/18/2025 1:14 AM Ximena Botello RN * [place] Suicide Severity Rating Scale (Screener/Recent Self-Report) Question [...] on file documented as of this encounter Results * (ABNORMAL) Salicylates (03/18/2025 5:04 AM EDT) SALICYLATES <0.3(L) 2.8 - 19.9 mg/dL [facility] Blood 03/18/2025 5:04 AM EDT 03/18/2025 5:10 AM EDT us Mauri Cooper MD LAB BLOOD ORDERABLES Final Resu lt Performing Organization Address [facility] de Phone Number [address] [address] * (ABNORMAL) Acetaminophen level (03/18/2025 5:04 AM EDT) ACETAMINOPHEN <5.0(L) 15.0 - 30.0 ug/mL [facility] Blood 03/18/2025 5:04 AM EDT 03/18/2025 5:10 AM EDT us Mauri Cooper MD LAB BLOOD ORDERABLES Final Resu lt Performing Organization Address City/[facility]/ZIP Co de Phone Number [address] [address] * Ethanol, blood (03/18/2025 5:04 AM EDT) ETHANOL <10 <10 mg/dL [facility] Blood 03/18/2025 5:04 AM EDT 03/18/2025 5:10 AM EDT us Mauri Cooper MD LAB BLOOD ORDERABLES Final Resu lt Performing Organization Address City/[facility]/ZIP Co de Phone Number [address] [address] * Magnesium (03/18/2025 5:04 AM EDT) MAGNESIUM 1.9 1.6 - 2.6 mg/dL [facility] Blood 03/18/2025 5:04 AM EDT 03/18/2025 5:10 AM EDT us Mauri Cooper MD LAB BLOOD ORDERABLES Final Resu lt [address] [address] * LFTs (hepatic panel) (03/18/2025 5:04 AM EDT) ALKALINE PHOSPHATASE 77 39 - 117 U/L [facility] TOTAL BILIRUBIN <0.2 0.0 - 1.2 mg/dL [facility] DIRECT BILIRUBIN <0.1 0.0 - 0.2 mg/dL [facility] Bilirubin (Indirect) NOT CALCULATED 0 - 1.5 mg/dL [facility] AST 12 0 - 37 U/L [facility] ALT 15 0 - 40 U/L [facility] TOTAL PROTEIN 6.7 6.5 - 8.0 g/dL [facility] ALBUMIN 4.1 3.9 - 4.8 g/dL [facility] GLOBULIN 2.6 1 - 4.8 g/dL [facility] A/G Ratio 1.58 1.00 - 4.80 RATIO [facility] Blood 03/18/2025 5:04 AM EDT 03/18/2025 5:10 AM EDT us Mauri Cooper MD LAB BLOOD ORDERABLES Final Resu lt [address] [address] * (ABNORMAL) Basic metabolic panel (03/18/2025 5:04 AM EDT) SODIUM 139 133 - 146 mmol/L [facility] CHLORIDE 104 96 - 108 mmol/L [facility] POTASSIUM 3.3 3.3 - 5.1 mmol/L [facility] CO2 25 21 - 35 mmol/L [facility] BUN 5(L) 6 - 19 mg/dL [facility] CREATININE 0.40(L) 0.5 - 1.5 mg/dL [facility] GLUCOSE 152(H) 70 - 99 mg/dL [facility] CALCIUM 8.9 8.4 - 10.3 mg/dL [facility] EGFR >120 >59 mL/min/1.7 3m2 [facility] Comment:Estimated glomerular filtration rate calculated using the CKD-EPI refit equation. ANION GAP 13 10 - 20 mmol/L [facility] Blood 03/18/2025 5:04 AM EDT 03/18/2025 5:10 AM EDT us Mauri Cooper MD LAB BLOOD ORDERABLES Final Resu lt Performing Organization Address City/State/[facility] Co de Phone Number [address] [address] * CBC and differential (03/18/2025 5:04 AM EDT) WBC 8.55 4.00 - 11.00 K/uL [facility] RBC 4.15 4.00 - 5.20 M/uL [facility] HGB 12.6 12.0 - 16.0 g/dL [facility] HCT 37.0 36.0 - 46.0 % [facility] PLT 318 150 - 450 K/uL [facility] MCV 89.2 80.0 - 100.0 fL [facility] MCH 30.4 27.0 - 31.0 pg [facility] MCHC 34.1 32.0 - 36.0 g/dL [facility] RDW 12.4 11.5 - 14.5 % [facility] MPV 9.6 8.4 - 12.0 fL [facility] NRBC 0.00 0.00 /100 WBCs [facility] ABSOLUTE NRBC 0.00 0.00 K/uL [facility] DIFF METHOD Auto [facility] NEUTS 52.0 48.0 - 76.0 % [facility] LYMPHS 34.6 18.0 - 41.0 % [facility] MONOS 9.5 4.0 - 11.0 % [facility] EOS 2.8 0.0 - 5.0 % [facility] BASOS 0.7 0.0 - 1.5 % [facility] Granulocytes, immature (%) 0.4 0.0 - 0.9 % [facility] ABSOLUTE NEUTS 4.45 1.92 - 7.60 K/uL [facility] ABSOLUTE LYMPHS 2.96 0.72 - 4.10 K/uL [facility] ABSOLUTE MONOS 0.81 0.16 - 1.10 K/uL [facility] ABSOLUTE EOS 0.24 0.00 - 0.50 K/uL [facility] ABSOLUTE BASOS 0.06 0.00 - 0.15 K/uL [facility] Granulocytes, immature 0.03 0.00 - 0.09 K/uL [facility] Blood 03/18/2025 5:04 AM EDT 03/18/2025 5:10 AM EDT us Mauri Cooper MD LAB BLOOD ORDERABLES Final Resu lt [facility] [address] [place] [address] documented in this encounter Visit Diagnoses Diagnosis Alcoholic intoxication without complication- Primary documented in this encounter Care Teams Remote Sensing Specialist Relationship Specialty Start Date End Date Roel Churchill MD [address] [place] [phone] [email or web address] PCP - General Family Medicine 12/24/24 documented as of this encounter Additional Source Comments The information contained in this document represents components of the legal health record. It is not the complete legal health record.[facility]
--- OUTSIDE RECORDS SUMMARY | 2025-03-18 18:47 | XMS_ITS | Encounter Summary ---
Author Organization [facility] Address [address] [address] Phone Care Team Providers Care Marketing Developer Name Role Phone Elmer Patrick MD Primary Care Provider [phone] Elmer Patrick MD Unavailable Roxy Sheets NP Primary Care Provider [phone] Pcp, Unknown Primary Care Provider Unavailabl e Rain Miranda MD Unavailable [phone] Rain Miranda MD Unavailable [phone] Bartolo Timmons MD Primary Care Provider [phone] Bartolo Timmons MD Unavailable Cassi Mcdaniels RN Unavailable Unknown, Unknown Primary Care Provider Roel Vega MD Primary Care Prov ider Encounter Details Date Type Department Care Team (Late st Contact Info) Description 01/03/2018 Procedure Pass [facility], Ct Scan - [address] [address] Social History Tobacco Use Types Packs/Day Years [...] documented as of this encounter Care Teams Marketing Developer Relationship Specialty Start Date End Date Elmer Patrick MD [address] [place] [phone] [email or web address] PCP - General Family Medicine 07/02/17 12/26/18 Roxy Sheets NP [address] [place] [phone] PCP - General Family Medicine 12/27/18 07/05/21 Pcp, Unknown PCP - General 07/06/21 08/29/22 Bartolo Timmons MD [address] [place] [phone] [email or web address] PCP - General Internal Medicine 08/30/22 05/04/24 Unknown, MD Yovanny PCP - General 05/05/24 12/23/24 Roel Churchill MD [address] [place] [phone] [email or web address] PCP - General Family Medicine 12/24/24 Elmer Patrick MD [address] [place] [phone] [email or web address] Insurance Assigned Provider 09/21/18 02/22/19 Rain Miranda MD [address] [place] [address] [email or web address] Insurance Assigned Provider 11/26/21 01/21/22 Rain Miranda MD [address] [place] [phone] [email or web address] Insurance Assigned Provider 04/23/22 10/21/22 Bartolo Timmons MD [address] [place] [phone] [email or web address] Insurance Assigned Provider 10/21/22 02/24/23 Cassi Mcdaniels RN [address] [place] [phone] [email or web address] [employer] Grants SpecialistCar Scrubber 12/08/22 12/13/22 documented as of this encounter Additional Source Comments The information contained in this document represents components of the legal health record. It is not the complete legal health record.[facility]
--- OUTSIDE RECORDS SUMMARY | 2025-03-18 18:47 | XMS_ITS | Encounter Summary ---
Author Organization [facility] Address [address] [facility] [address] [place] [address] Phone Care Team Providers Care Resource Management Specialist Name Role Phone Roel Churchill MD Primary Care Prov ider Encounter Details Date Type Department Care Team (Latest Contact Info) Description 03/18/2025 Transcribe Orders [facility] Specimen Processing [address] [place] [address] Mauri Cooper MD 30 [place] [address] [email or web address] Alcoholic intoxication without complication (Primary Dx) Social [...] housing (staying in a hotel, in a jail, living outside on the street, on a [...] 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 Not on file Not on file Not on file documented as of this encounter Functional Status * Calculated C-SSRS Risk Score (Lifetime/Recent) Answer Date of Assessment Author No Risk Indicated 03/18/2025 1:14 AM Ximena Botello RN * [place] Suicide Severity Rating Scale (Screener/Recent Self-Report) Question [...] documented as of this encounter Results * HCG, serum qualitative (03/18/2025 5:04 AM EDT) HCG, QUALITATIVE Negative Negative IU/L [facility] Blood 03/18/2025 5:04 AM EDT 03/18/2025 5:10 AM EDT us Mauri Cooper MD LAB BLOOD ORDERABLES Final Resu lt [facility] [address] [place] [address] documented in this encounter Visit Diagnoses Diagnosis Alcoholic intoxication without complication- Primary documented in this encounter Care Teams Resource Management Specialist Relationship Specialty Start Date End Date Roel Churchill MD [address] [place] [phone] [email or web address] PCP - General Family Medicine 12/24/24 documented as of this encounter Additional Source Comments The information contained in this document represents components of the legal health record. It is not the complete legal health record.[facility]
--- OUTSIDE RECORDS SUMMARY | 2025-03-18 18:47 | XMS_ITS | Encounter Summary ---
Author Organization [facility] Address [address] [facility] [address] [place] [address] Phone Care Team Providers Care Aircraft Engine Mechanic Overhaul Name Role Phone Roel Churchill MD Primary Care Prov ider Encounter Details Date Type Department Care Team (Latest Contact Info) Description 03/18/2025 Transcribe Orders [facility] Specimen Processing [address] [place] [address] Mauri Cooper MD [address] [place] [address] [email or web address] Alcoholic intoxication [...] housing (staying in a hotel, in a [facility], living outside on the street, on a [...] 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 on file Not on file Not on file documented as of this encounter Functional Status * Calculated C-SSRS Risk Score (Lifetime/Recent) Answer Date of Assessment Author No Risk Indicated 03/18/2025 1:14 AM Ximena Botello RN * [place] Suicide Severity Rating Scale (Screener/Recent Self-Report) Question [...] documented as of this encounter Visit Diagnoses Diagnosis Alcoholic intoxication without complication- Primary documented in this encounter Care Teams Aircraft Engine Mechanic Overhaul Relationship Specialty Start Date End Date Roel Churchill MD [address] [place] [phone] [email or web address] PCP - General Family Medicine 12/24/24 documented as of this encounter Additional Source Comments The information contained in this document represents components of the legal health record. It is not the complete legal health record.[facility]
--- OUTSIDE RECORDS SUMMARY | 2025-03-18 18:47 | XMS_ITS | Encounter Summary ---
Author Organization [facility] Address [address] [facility] [address] [place] [address] Phone Care Team Providers Care Mobile Game Engineer Name Role Phone Elmer Patrick MD Unavailable Roxy Sheets NP Primary Care Provider [phone] Pcp, Unknown Primary Care Provider Unavailabl e Rain Miranda MD Unavailable [phone] Rain Miranda MD Unavailable [phone] Bartolo Timmons MD Primary Care Provider [phone] Bartolo Timmons MD Unavailable Cassi Mcdaniels RN Unavailable Unknown, Unknown Primary Care Provider Roel Vega MD Primary Care Prov ider Encounter Details Date Type Department Care Team (Late st Contact Info) Description 01/03/2019 Procedure Pass [place] Admitting Dept - Virtual Department [address] [place] [phone] Social History Tobacco Use Types Packs/Day Years Used Date Smoking Tobacco: Every Day Cigarettes Smokeless Tobacco: Never Comments:quitting now down t o 2 daily Alcohol Use Standard Drinks/Week Comments Yes 0 (1 standard drink = 0.6 oz pur e alcohol) oaccasionally Comments No Sex and Gender Information Value Date Recorded Sex Assigned at Female 06/25/2017 9:38 AM EST Legal Sex Female 8:57 PM EDT Gender Identity Female 06/25/2017 9:38 AM EST Sexual Orientation Straight 06/25/2017 9: 38 AM EST 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 [place] [phone] PCP - General Family Medicine 12/27/18 07/05/21 Pcp, Unknown PCP - General 07/06/21 08/29/22 Bartolo Timmons MD [address] [place] [phone] [email or web address] PCP - General Internal Medicine 08/30/22 05/04/24 Unknown, Yovanny, PCP - General 05/05/24 12/23/24 Roel Churchill MD [address] [place] [phone] [email or web address] PCP - General Family Medicine 12/24/24 Elmer Patrick MD [address] [facility] [address] [place] [phone] [email or web address] Insurance Assigned Provider 09/21/18 02/22/19 Rain Miranda MD [address] [place] [phone] [email or web address] Insurance Assigned Provider 11/26/21 01/21/22 Rain Miranda MD [address] [place] [phone] [email or web address] Insurance Assigned Provider 04/23/22 10/21/22 Bartolo Timmons MD [address] [place] [phone] [email or web address] Insurance Assigned Provider 10/21/22 02/24/23 Cassi Mcdaniels RN [address] [place] [phone] [email or web address] [employer]elt HangerContractor Buyer 12/08/22 12/13/22 documented as of this encounter Additional Source Comments The information contained in this document represents components of the legal health record. It is not the complete legal health record.[facility]
[2025-03-18 19:00] VITALS: PULSE 100; TEMP 35.9; O2SAT 97; BMI 38.6
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
[2025-03-18 20:00] VITALS: BP 117/86; PULSE 105; TEMP 36.8; O2SAT 97
[2025-03-19 07:00] VITALS: BMI 38.8
[2025-03-19 08:00] VITALS: BP 136/81; PULSE 97; RESP 16; TEMP 36.3; O2SAT 98
[2025-03-19] MEDS: Nicotine 21 MG PATCH.TD24 TRANSDERMA (09:21)
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
[2025-03-19 19:53] VITALS: BP 126/84; PULSE 93; TEMP 36.4; O2SAT 99
[2025-03-20 08:10] VITALS: BP 129/72; PULSE 96; TEMP 36.6; O2SAT 99
[2025-03-20] MEDS: Nicotine 21 MG PATCH.TD24 TRANSDERMA (08:53)
--- NOTE | 2025-03-20 20:02 | HO.PSYCHPN ---
Subjective Subjective Date of Service: 03/20/25 Reason For Visit: F.32 F41.9 F43.10 F60.3 Subjective Notes: Conditional Voluntary Healthcare Proxy: No Guardianship: No Medical Problems Affecting Mental Status: No Interim History: Medical record and nursing notes reviewed; case discussed during rounds with team/nursing staff, and met with patient for supportive therapy/psychoeducation, as well as medication management. Patient slept for 7hours last night which is much improvement compared to the night before. Patient appears to be less agitated/irritable. More appropriate during assessment today. Make 1-2 inappropriate comment toward this provider but improved. Less racing thoughts/flight of ideas, less labile. Patient is not appropriate for psych groups as she was too disorganized during groups yesterday. She agrees to have Risperidone increased up to 5mg total/day in divided dose. Compliant with meds, tolerate well with Trileptal so far. Will continue to titrate. It seems she refused lab work. Will order for tomorrow to monitor lytes, especially Sodium as she started on Trileptal. Medication Compliance: Yes Side effects from medications: No Attending Groups: Yes (However, not appropriate for psych groups. ) Review of Systems Acute medical concerns: No Medical Review of Systems: unchanged Review of Systems Review of Systems Denies any shortness of breath, chest pain, palpitations, dizziness, lightheadedness, headaches, dysuria, abdominal pain or discomfort, nausea, vomiting or diarrhea. Mental Status Exam Mental Status Exam Narrative: Patient is alert and oriented x4, behavior is cooperative, overly friendly with mild to moderate anxiety; patient is not in distress; dressed in casual attire with kempt hair and adequate hygiene; mood is described as good and affect incongruent; eye contact appropriate; Speech is with fast rate, volume and prosody and pressured; no psychomotor agitation/retardation present; thought process is disorganized but goal directed; Thought content is WNL, not pertinent to relevant topics. flight of ideas, racing thoughts, and delusional content, paranoid ideation or grandiosity; denies any SI/SIB/HI. Denies AH. Patient's insight and judgment impaired. Diagnostics Vital Signs (24Hr): Vital Signs - 24 hr 03/20/25 08:10 Temperature 97.9 F Pulse Rate 96 Blood Pressure 129/72 Pulse Oximetry 99 Oxygen Delivery Method Room Air BMI result Body Mass Index 38.8 Medications Medications Current Medications Acetaminophen (Acetaminophen 325 Mg Tablet) 650 mg PO Q6H PRN PRN Reason: Headache/Pain, Scale 1-10 Last Admin: 03/18/25 21:39 Dose: 650 mg Al Hydroxide/Mg Hydroxide (Magnesium Hydrox/Alum Hydrox 30 Ml Oral.Susp) 30 ml PO Q6H PRN PRN Reason: Heartburn/Nausea Albuterol Sulfate (Albuterol Sulfate 90 Mcg 8 Gm Inhaler) 2 puff INHALE Q4H PRN PRN Reason: Wheezing Fluticasone/Vilanterol (Fluticasone/Vilanterol 200/25 Blst.W.Dev) 1 puff INHALE RDAILY [facility] Last Admin: 03/20/25 08:55 Dose: Not Given Hydroxyzine HCl (Hydroxyzine Hcl 50 Mg Tablet) 50 mg PO Q6H PRN PRN Reason: mild anxiety Last Admin: 03/20/25 15:56 Dose: 50 mg Lorazepam (Lorazepam 1 Mg Tablet) 1 mg PO Q6H PRN PRN Reason: severe anxiety Last Admin: 03/20/25 08:53 Dose: 1 mg Lurasidone HCl (Lurasidone Hcl 20 Mg Tablet) 60 mg PO DAILY@1800 [facility] Last Admin: 03/20/25 17:19 Dose: 60 mg Magnesium Hydroxide (Milk Of Magnesia 30 Ml Oral.Susp) 30 ml PO DAILY PRN PRN Reason: Constipation Nicotine (Nicotine 21 Mg Patch.Td24) 21 mg TRANSDERMA DAILY [facility] Last Admin: 03/20/25 08:53 Dose: 21 mg Nicotine Polacrilex (Nicotine Polacrilex 2 Mg Gum) 4 mg BUCCAL Q2H PRN PRN Reason: Nicotine Cravings Last Admin: 03/20/25 15:46 Dose: 4 mg Olanzapine (Olanzapine 5 Mg Tablet) 5 mg PO BID PRN PRN Reason: agitation Oxcarbazepine (Oxcarbazepine 300 Mg Tablet) 300 mg PO BID [facility] Last Admin: 03/20/25 08:53 Dose: 300 mg Paliperidone Palmitate (Paliperidone Palmitate 117 Mg/0.75 Ml Syringe) 117 mg IM Q35D [facility] Risperidone (Risperidone 3 Mg Tablet) 3 mg PO BEDTIME [facility] Last Admin: 03/19/25 20:49 Dose: 3 mg Risperidone (Risperidone 2 Mg Tablet) 2 mg PO DAILY [facility] Last Admin: 03/20/25 12:42 Dose: 2 mg Trazodone HCl (Trazodone Hcl 50 Mg Tablet) 50 mg PO BEDTIME MRX1 PRN PRN Reason: Insomnia Trazodone HCl (Trazodone Hcl 50 Mg Tablet) 150 mg PO BEDTIME [facility] Last Admin: 03/19/25 20:49 Dose: 150 mg Allergies Allergies Allergy/AdvReac Type Severity Reaction Status Date / Time latex Allergy Unknown Unknown Verified 03/18/25 19:20 Assessment & Plan Assessment & Plan (1) Asthma: Status: Acute Code(s): J45.909 - Unspecified asthma, uncomplicated (2) PTSD (post-traumatic stress disorder): Status: Acute Code(s): F43.10 - Post-traumatic stress disorder, unspecified (3) Bipolar disorder, curr episode mixed, severe, with psychotic features: Status: Acute Code(s): F31.64 - Bipolar disorder, current episode mixed, severe, with psychotic features Plan HPI: Patient is a 30 y.o Turkmen speaking female who presented to ED with significant disorganization, paranoid, pressure speech, and tangential thought process. Jail staff reported escalating manic behavior including entering another resident's room, attempted to direct EMS, and making threats toward others. Recently discharge from inpatient psychiatric unit at [place] less than 48 hours. non-adherence to medication, lack of sleep for three days,recently alcohol use and increase stress related to unsafe housing. Formulation/clinical reasoning: Non compliant with meds, decompensated, presented with manic behaviors, delusions. Given hx of bipolar with psychotic feature, patient would benefit in restrictive environment for medication adjustment, stable mood and refer patient back to community. Hospital course: 03/19/25: d/t the fact that patient is scared of needles. Lithim and Depakote are not good choices for now as high on non-compliant with blood work Patient agrees to start on Trileptal. Ativan 1mg Q6 hrs PRN for sevever anxiety Latuda 60mg at 1800 with meals Risperidone 3mg at HS. 03/20/25: Patient slept for 7hours last night which is much improvement compared to the night before. Patient appears to be less agitated/irritable. More appropriate during assessment today. Make 1-2 inappropriate comment toward this provider but improved. Less racing thoughts/flight of ideas, less labile. Patient is not appropriate for psych groups as she was too disorganized during groups yesterday. She agrees to have Risperidone increased up to 5mg total/day in divided dose. Compliant with meds, tolerate well with Trileptal so far. Will continue to titrate. It seems she refused lab work. Will order for tomorrow to monitor lytes, especially Sodium as she started on Trileptal. Plan Patient on 15 minute checks for safety. Admitted to . CV. Work with treatment team to do collateral Called Gretchen Maldonado to provider who recently took care patient. LVM. Waiting for a call back regarding most recent med list and LESLIE. Patient educated on: diagnosis, medication risk/benefits, substance abuse and therapeutic strategies Informed Consent: understands and further education needed Reason for continued inpatient stay Substantial Risk for: med/psych decompensation Time Spent With Patient Time: Total time managing care of this patient today ____ minutes.
[2025-03-20 20:28] VITALS: BP 141/84; PULSE 100; RESP 18; TEMP 36.8; O2SAT 98
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
[2025-03-21 08:00] VITALS: RESP 18
[2025-03-21] MEDS: Nicotine 21 MG PATCH.TD24 TRANSDERMA (09:13)
[2025-03-21] MEDS: Fluticasone/Vilanterol 200/25 BLST.W.DEV 1 PUFF INHALE (10:57)
[2025-03-21 12:10] LABS: Hemoglobin A1C 130.1212 umol/L; Total Hemoglobin (HGBA1C) 3401.6403 umol/L
[2025-03-21 12:21] LABS: Alanine Aminotransferase 19 U/L (0-31); Albumin Level 4.2 g/dL (3.5-5.0); Alkaline Phosphatase 74 U/L (39-117); Anion Gap 9 (12-20); Aspartate Amino Transferase 20 U/L (5-31); Blood Urea Nitrogen 10 mg/dL (9-16); Calcium 9.3 mg/dL (8.4-10.2); Carbon Dioxide 27 mmol/L (22-29); Chloride 105 mmol/L (96-108); Cholesterol 187 mg/dL (<200); Creatinine Clr Calc Pharmacy 179.6; Estimated Glomerular Filt Rate > 60; HDL Cholesterol 39 mg/dL (>40); Potassium 4.2 mmol/L (3.3-5.1); Sodium 137 mmol/L (135-145); Total Protein 6.6 g/dL (6.5-8.0); Triglycerides 121 mg/dL (<150)
[2025-03-21 12:36] LABS: Free T4 (Free Thyroxine) 0.90 ng/dL (0.71-1.85); Thyroid Stimulating Hormone 0.60 uIU/mL (0.32-4.0)
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
[2025-03-21 20:30] VITALS: BP 114/72; PULSE 94; RESP 16; TEMP 36.1; O2SAT 97
[2025-03-22 07:46] VITALS: RESP 18
[2025-03-22] MEDS: Nicotine 21 MG PATCH.TD24 TRANSDERMA (09:25)
[2025-03-22] MEDS: Fluticasone/Vilanterol 200/25 BLST.W.DEV 1 PUFF INHALE (09:25)
--- NOTE | 2025-03-22 18:54 | P.PNPSI_ITS ---
Subjective Subjective Date of Service: 03/22/25 Reason For Visit: F.32 F41.9 F43.10 F60.3 Subjective Notes: Conditional Voluntary Healthcare Proxy: No Guardianship: No Medical Problems Affecting Mental Status: No Interim History: Medical record and nursing notes reviewed; case discussed during rounds with team/nursing staff, and met with patient for supportive therapy/psychoeducation, as well as medication management. Slept pretty well, compliant with medications. Reports mood is bored. I hate being bored. It make me angry. When I am angry I punch the wall . Patient started talking about how she has been in and out of the hospital, got a job and lose a job. They said that if I get he shot I will not be back to the hospital and here I am in the hospital again . I do not want to be here past [birth year] which is her birthday on that. Explained to patient that in addition to monthly injection, patient may need to take mood stabilizer for bipolar. Labile, frustrated easily, irritable, but can be happy. Medication Compliance: Yes Side effects from medications: No Attending Groups: Intermittent Review of Systems Acute medical concerns: No Medical Review of Systems: unchanged Review of Systems Review of Systems Denies any shortness of breath, chest pain, palpitations, dizziness, lightheadedness, headaches, dysuria, abdominal pain or discomfort, nausea, vomiting or diarrhea. Mental Status Exam Mental Status Exam Narrative: Patient is alert and oriented x4, behavior is cooperative, overly friendly with mild to moderate anxiety; patient is not in distress; dressed in casual attire with kempt hair and adequate hygiene; mood is described as bored and affect congruent; eye contact appropriate; Speech is with fast rate, volume and prosody and pressured; no psychomotor agitation/retardation present; thought process is disorganized but goal directed; Thought content is WNL, not pertinent to relevant topics. flight of ideas, racing thoughts, and delusional content; denies any SI/SIB/HI. Denies AH. Patient's insight and judgment impaired. Diagnostics Vital Signs (24Hr): Vital Signs - 24 hr 03/21/25 20:30 03/22/25 07:46 Temperature 97.0 F Pulse Rate 94 Respiratory Rate 16 18 Blood Pressure 114/72 Pulse Oximetry 97 Oxygen Delivery Method Room Air BMI result Body Mass Index 38.8 Labs 03/21/25 11:50 Labs: Laboratory Results - last 48 hr 03/21/25 11:50 Sodium 137 Potassium 4.2 D Chloride 105 Carbon Dioxide 27 Anion Gap 9 L BUN 10 Creatinine 0.55 Estim Creat Clear Calc 179.6 Estimated GFR > 60 Random Glucose 83 Estimat Average Glucose 117 Hemoglobin A1c % 5.7 Calcium 9.3 D Total Bilirubin 0.2 AST 20 ALT 19 Alkaline Phosphatase 74 Total Protein 6.6 Albumin 4.2 Triglycerides 121 Cholesterol 187 LDL Cholesterol, Calc 124 H HDL Cholesterol 39 L TSH 0.60 Free T4 0.90 Medications Medications Current Medications Acetaminophen (Acetaminophen 325 Mg Tablet) 650 mg PO Q6H PRN PRN Reason: Headache/Pain, Scale 1-10 Last Admin: 03/18/25 21:39 Dose: 650 mg Al Hydroxide/Mg Hydroxide (Magnesium Hydrox/Alum Hydrox 30 Ml Oral.Susp) 30 ml PO Q6H PRN PRN Reason: Heartburn/Nausea Albuterol Sulfate (Albuterol Sulfate 90 Mcg 8 Gm Inhaler) 2 puff INHALE Q4H PRN PRN Reason: Wheezing Fluticasone/Vilanterol (Fluticasone/Vilanterol 200/25 Blst.W.Dev) 1 puff INHALE RDAILY [facility] Last Admin: 03/22/25 09:25 Dose: 1 puff Hydroxyzine HCl (Hydroxyzine Hcl 50 Mg Tablet) 50 mg PO Q6H PRN PRN Reason: mild anxiety Last Admin: 03/22/25 10:59 Dose: 50 mg Lorazepam (Lorazepam 1 Mg Tablet) 1 mg PO Q6H PRN PRN Reason: severe anxiety Last Admin: 03/21/25 20:58 Dose: 1 mg Lurasidone HCl (Lurasidone Hcl 20 Mg Tablet) 60 mg PO DAILY@1800 [facility] Last Admin: 03/22/25 17:32 Dose: 60 mg Magnesium Hydroxide (Milk Of Magnesia 30 Ml Oral.Susp) 30 ml PO DAILY PRN PRN Reason: Constipation Nicotine (Nicotine 21 Mg Patch.Td24) 21 mg TRANSDERMA DAILY [facility] Last Admin: 03/22/25 09:25 Dose: 21 mg Nicotine Polacrilex (Nicotine Polacrilex 2 Mg Gum) 4 mg BUCCAL Q2H PRN PRN Reason: Nicotine Cravings Last Admin: 03/22/25 14:41 Dose: 4 mg Olanzapine (Olanzapine 5 Mg Tablet) 5 mg PO BID PRN PRN Reason: agitation Oxcarbazepine (Oxcarbazepine 300 Mg Tablet) 300 mg PO BID [facility] Last Admin: 03/22/25 09:25 Dose: 300 mg Oxcarbazepine (Oxcarbazepine 300 Mg Tablet) 300 mg PO BEDTIME [facility]ICHOL[facility] Last Admin: 03/21/25 20:59 Dose: 300 mg Paliperidone Palmitate (Paliperidone Palmitate 117 Mg/0.75 Ml Syringe) 117 mg IM Q35D NICHOLAS Risperidone (Risperidone 3 Mg Tablet) 3 mg PO BEDTIME [facility] Last Admin: 03/21/25 20:58 Dose: 3 mg Risperidone (Risperidone 2 Mg Tablet) 2 mg PO DAILY [facility] Last Admin: 03/22/25 09:25 Dose: 2 mg Trazodone HCl (Trazodone Hcl 50 Mg Tablet) 50 mg PO BEDTIME MRX1 PRN PRN Reason: Insomnia Trazodone HCl (Trazodone Hcl 50 Mg Tablet) 150 mg PO BEDTIME [facility] Last Admin: 03/21/25 20:59 Dose: 150 mg Allergies Allergies Allergy/AdvReac Type Severity Reaction Status Date / Time latex Allergy Unknown Unknown Verified 03/18/25 19:20 Assessment & Plan Assessment & Plan (1) Asthma: Status: Acute Code(s): J45.909 - Unspecified asthma, uncomplicated (2) PTSD (post-traumatic stress disorder): Status: Acute Code(s): F43.10 - Post-traumatic stress disorder, unspecified (3) Bipolar disorder, curr episode mixed, severe, with psychotic features: Status: Acute Code(s): F31.64 - Bipolar disorder, current episode mixed, severe, with psychotic features Plan HPI: Patient is a 30 y.o Syrian speaking female who presented to ED with significant disorganization, paranoid, pressure speech, and tangential thought process. [facility] staff reported escalating manic behavior including entering another resident's room, attempted to direct EMS, and making threats toward others. Recently discharge from inpatient psychiatric unit at [place] less than 48 hours. non-adherence to medication, lack of sleep for three days,recently alcohol use and increase stress related to unsafe housing. Formulation/clinical reasoning: Non compliant with meds, decompensated, presented with manic behaviors, delusions. Given hx of bipolar with psychotic feature, patient would benefit in restrictive environment for medication adjustment, stable mood and refer patient back to community. Hospital course: 03/19/25: d/t the fact that patient is scared of needles. Lithim and Depakote are not good choices for now as high on non-compliant with blood work Patient agrees to start on Trileptal. Ativan 1mg Q6 hrs PRN for sevever anxiety Latuda 60mg at 1800 with meals Risperidone 3mg at HS. 03/20/25: Patient slept for 7hours last night which is much improvement compared to the night before. Patient appears to be less agitated/irritable. More appropriate during assessment today. Make 1-2 inappropriate comment toward this provider but improved. Less racing thoughts/flight of ideas, less labile. Patient is not appropriate for psych groups as she was too disorganized during groups yesterday. She agrees to have Risperidone increased up to 5mg total/day in divided dose. Compliant with meds, tolerate well with Trileptal so far. Will continue to titrate. It seems she refused lab work. Will order for tomorrow to monitor lytes, especially Sodium as she started on Trileptal. 03/21/25: Per nursing, patient refused lab work this morning, was intrusive, had episode of light head bang yesterday and sexually inappropriate. Patient does not like needles. Discussed with patient regarding the important of getting lab work done. She states that She needs someone to play M&M song and have someone to hold on her hand while lab drawn which nursing able to accommodate to have it done this morning. Patient continues to make inappropriate comment regarding this provider clothes again your shirt color makes me feel happier . Report having 15 different feelings when asked how her mood today. Report feeling anxious. Racing thoughts, flight of ideas with manic behaviors. feel scared when I am up and being alone in my room . Patient receptive with plan of increasing Trileptal. Compliant with meds, no side effects. 03/22/25: Slept pretty well, compliant with medications. Reports mood is bored. I hate being bored. It make me angry. When I am angry I punch the wall . Patient started talking about how she has been in and out of the hospital, got a job and lose a job. They said that if I get he shot I will not be back to the hospital and here I am in the hospital again . I do not want to be here past [birth year] which is her birthday on that. Explained to patient that in addition to monthly injection, patient may need to take mood stabilizer for bipolar. Labile, frustrated easily, irritable, but can be happy. Plan Patient on 15 minute checks for safety. Admitted to [facility]. CV. Work with treatment team to do collateral Called Gretchen Maldonado to provider who recently took care patient. LVM. Waiting for a call back regarding most recent med list and LESLIE. Patient educated on: diagnosis, medication risk/benefits, substance abuse and therapeutic strategies Informed Consent: further education needed Reason for continued inpatient stay Substantial Risk for: med/psych decompensation Time Spent With Patient Time: Total time managing care of this patient today ____ minutes.
[2025-03-22 20:00] VITALS: BP 128/83; PULSE 111; RESP 18; TEMP 36; O2SAT 96
--- NOTE | 2025-03-23 | ECG_ITS ---
Test Reason : Qtc Blood Pressure : */* mmHG Vent. Rate : 95 BPM Atrial Rate : 95 BPM P-R Int : 162 ms QRS Dur : 76 ms QT Int : 360 ms P-R-T Axes : * 151 147 degrees QTcB Int : 452 ms Suspect limb lead reversal, interpretation assumes no reversal Normal sinus rhythm Right axis deviation Abnormal ECG When compared with ECG of 24-Sep-2023 09:17, QRS axis Shifted right Referred By: Cheko Rai Electronically Signed By: LAURIE HINES MD
[2025-03-23] MEDS: Nicotine 21 MG PATCH.TD24 TRANSDERMA (08:17)
[2025-03-23 08:40] VITALS: BP 125/98; PULSE 88; RESP 18; TEMP 36.2; O2SAT 98
--- NOTE | 2025-03-23 09:19 | P.PNPSI_ITS ---
Subjective Subjective Date of Service: 03/23/25 Reason For Visit: F.32 F41.9 F43.10 F60.3 Interim History: Met with patient; discussed with team; reviewed chart Patient remains manic with which she agrees. Discussed medication options and patient does not think that Risperdal has ever done much for her. Latuda however has made a big difference in her depression and she says it is actually kept her from being suicidal and she wants to keep it. Discussing options, risks/side effects patient agrees to switch from Risperdal to Geodon to see if that can help; she also agrees to get back on Depakote, even though she hates needles, if Geodon does not work. Also discussed Intuniv, risks/side effects and she agrees to try but will hold off for now Mental Status Exam Mental Status Exam Narrative: Pt is alert and oriented; behavior is manic/hypomanic, loud, distract did but able to be redirected and overall friendly and cooperative; engaged in tx and calm; patient is not in distress; dressed in hospital attire, glasses with good hygiene; mood is described as manic and affect congruent, expansive; eye contact appropriate; Speech is loud, and a little pressured; intermittent mild psychomotor agitation present; thought process can be goal directed and organized but is easily distracted and can get circumstantial or tangential; Thought content is on life issues, treatment, hopes/worries; hx of trauma; otherwise pertinent to relevant topics; possibly some delusional ideations vs exaggerated memories; has not mentioned any delusional; no AVH; content; no more SI or HI; No AVH; does not appear to be internally pre-occupied. Patients insight and judgment impaired but improving Diagnostics Vital Signs (24Hr): Vital Signs - 24 hr 03/22/25 20:00 03/23/25 08:40 Temperature 96.8 F 97.2 F Pulse Rate 111 H 88 Respiratory Rate 18 18 Blood Pressure 128/83 125/98 H Pulse Oximetry 96 98 Oxygen Delivery Method Room Air Room Air BMI result Body Mass Index 38.8 Labs 03/21/25 11:50 Labs: Laboratory Results - last 48 hr 03/21/25 11:50 Sodium 137 Potassium 4.2 D Chloride 105 Carbon Dioxide 27 Anion Gap 9 L BUN 10 Creatinine 0.55 Estim Creat Clear Calc 179.6 Estimated GFR > 60 Random Glucose 83 Estimat Average Glucose 117 Hemoglobin A1c % 5.7 Calcium 9.3 D Total Bilirubin 0.2 AST 20 ALT 19 Alkaline Phosphatase 74 Total Protein 6.6 Albumin 4.2 Triglycerides 121 Cholesterol 187 LDL Cholesterol, Calc 124 H HDL Cholesterol 39 L TSH 0.60 Free T4 0.90 Medications Medications Current Medications Acetaminophen (Acetaminophen 325 Mg Tablet) 650 mg PO Q6H PRN PRN Reason: Headache/Pain, Scale 1-10 Last Admin: 03/18/25 21:39 Dose: 650 mg Al Hydroxide/Mg Hydroxide (Magnesium Hydrox/Alum Hydrox 30 Ml Oral.Susp) 30 ml PO Q6H PRN PRN Reason: Heartburn/Nausea Albuterol Sulfate (Albuterol Sulfate 90 Mcg 8 Gm Inhaler) 2 puff INHALE Q4H PRN PRN Reason: Wheezing Fluticasone/Vilanterol (Fluticasone/Vilanterol 200/25 Blst.W.Dev) 1 puff INHALE RDAILY [facility] Last Admin: 03/22/25 09:25 Dose: 1 puff Hydroxyzine HCl (Hydroxyzine Hcl 50 Mg Tablet) 50 mg PO Q6H PRN PRN Reason: mild anxiety Last Admin: 03/22/25 22:16 Dose: 50 mg Lorazepam (Lorazepam 1 Mg Tablet) 1 mg PO Q6H PRN PRN Reason: severe anxiety Last Admin: 03/22/25 22:13 Dose: 1 mg Lurasidone HCl (Lurasidone Hcl 20 Mg Tablet) 60 mg PO DAILY@1800 [facility] Last Admin: 03/22/25 17:32 Dose: 60 mg Magnesium Hydroxide (Milk Of Magnesia 30 Ml Oral.Susp) 30 ml PO DAILY PRN PRN Reason: Constipation Nicotine (Nicotine 21 Mg Patch.Td24) 21 mg TRANSDERMA DAILY [facility] Last Admin: 03/23/25 08:17 Dose: 21 mg Nicotine Polacrilex (Nicotine Polacrilex 2 Mg Gum) 4 mg BUCCAL Q2H PRN PRN Reason: Nicotine Cravings Last Admin: 03/23/25 08:15 Dose: 4 mg Olanzapine (Olanzapine 5 Mg Tablet) 5 mg PO BID PRN PRN Reason: agitation Last Admin: 03/22/25 22:16 Dose: 5 mg Oxcarbazepine (Oxcarbazepine 300 Mg Tablet) 300 mg PO BID [facility] Last Admin: 03/23/25 08:18 Dose: 300 mg Oxcarbazepine (Oxcarbazepine 300 Mg Tablet) 300 mg PO BEDTIME [facility] Last Admin: 03/22/25 22:14 Dose: 300 mg Paliperidone Palmitate (Paliperidone Palmitate 117 Mg/0.75 Ml Syringe) 117 mg IM Q35D [facility]ICH[facility] Risperidone (Risperidone 3 Mg Tablet) 3 mg PO BEDTIME [facility] Last Admin: 03/22/25 22:13 Dose: 3 mg Risperidone (Risperidone 2 Mg Tablet) 2 mg PO DAILY [facility] Last Admin: 03/23/25 08:18 Dose: 2 mg Trazodone HCl (Trazodone Hcl 50 Mg Tablet) 50 mg PO BEDTIME MRX1 PRN PRN Reason: Insomnia Trazodone HCl (Trazodone Hcl 50 Mg Tablet) 150 mg PO BEDTIME [facility] Last Admin: 03/22/25 22:14 Dose: 150 mg Allergies Allergies Allergy/AdvReac Type Severity Reaction Status Date / Time latex Allergy Unknown Unknown Verified 03/18/25 19:20 Assessment & Plan Assessment & Plan (1) Asthma: Status: Acute Code(s): J45.909 - Unspecified asthma, uncomplicated (2) PTSD (post-traumatic stress disorder): Status: Acute Code(s): F43.10 - Post-traumatic stress disorder, unspecified (3) Bipolar disorder, curr episode mixed, severe, with psychotic features: Status: Acute Code(s): F31.64 - Bipolar disorder, current episode mixed, severe, with psychotic features Plan HPI: Patient is a 30 y.o Citizen Of [place] speaking female who presented to ED with significant disorganization, paranoid, pressure speech, and tangential thought process. [facility] staff reported escalating manic behavior including entering another resident's room, attempted to direct EMS, and making threats toward others. Recently discharge from inpatient psychiatric unit at [facility] less than 48 hours. non-adherence to medication, lack of sleep for three days,recently alcohol use and increase stress related to unsafe housing. Formulation/clinical reasoning: Non compliant with meds, decompensated, presented with manic behaviors, delusions. Given hx of bipolar with psychotic feature, patient would benefit in restrictive environment for medication adjustment, stable mood and refer patient back to community. Hospital course: 03/19/25: d/t the fact that patient is scared of needles. Lithim and Depakote are not good choices for now as high on non-compliant with blood work Patient agrees to start on Trileptal. Ativan 1mg Q6 hrs PRN for sevever anxiety Latuda 60mg at 1800 with meals Risperidone 3mg at HS. 03/20/25: Patient slept for 7hours last night which is much improvement compared to the night before. Patient appears to be less agitated/irritable. More appropriate during assessment today. Make 1-2 inappropriate comment toward this provider but improved. Less racing thoughts/flight of ideas, less labile. Patient is not appropriate for psych groups as she was too disorganized during groups yesterday. She agrees to have Risperidone increased up to 5mg total/day in divided dose. Compliant with meds, tolerate well with Trileptal so far. Will continue to titrate. It seems she refused lab work. Will order for tomorrow to monitor lytes, especially Sodium as she started on Trileptal. 03/21/25: Per nursing, patient refused lab work this morning, was intrusive, had episode of light head bang yesterday and sexually inappropriate. Patient does not like needles. Discussed with patient regarding the important of getting lab work done. She states that She needs someone to play M&M song and have someone to hold on her hand while lab drawn which nursing able to accommodate to have it done this morning. Patient continues to make inappropriate comment regarding this provider clothes again your shirt color makes me feel happier . Report having 15 different feelings when asked how her mood today. Report feeling anxious. Racing thoughts, flight of ideas with manic behaviors. feel scared when I am up and being alone in my room . Patient receptive with plan of increasing Trileptal. Compliant with meds, no side effects. 03/22/25: Slept pretty well, compliant with medications. Reports mood is bored. I hate being bored. It make me angry. When I am angry I punch the wall . Patient started talking about how she has been in and out of the hospital, got a job and lose a job. They said that if I get he shot I will not be back to the hospital and here I am in the hospital again . I do not want to be here past 04[birth year] which is her birthday on that. Explained to patient that in addition to monthly injection, patient may need to take mood stabilizer for bipolar. Labile, frustrated easily, irritable, but can be happy. 03/23 Patient remains manic with which she agrees. Discussed medication options and patient does not think that Risperdal has ever done much for her. Latuda however has made a big difference in her depression and she says it is actually kept her from being suicidal and she wants to keep it. Discussing options, risks/side effects patient and patient very much wants to avoid any medications that cause weight gain; in effort to avoid getting back on Depakote, patient agrees to switch from Risperdal to Geodon to see if that can help; she also agrees to get back on Depakote, even though she hates needles, if Geodon does not work. Patient does not think Trileptal has been helpful and agrees to taper off Also discussed Intuniv, risks/side effects and she agrees to try but will hold off for now -checked QTC and WNL Plan Patient on 15 minute checks for safety. Admitted to [facility]5. CV. Discontinue Risperdal; patient does not think it has helped much even though has been on and off it for years START ziprasidone 20 mg 1 time dose than 40 mg b.i.d. with meals Continue Latuda 60 mg; this medication is not helpful for paris but has been very helpful for patient for bipolar depression Taper off Trileptal Will consider Depakote if patient mood does not stabilize Patient educated on: diagnosis, medication risk/benefits and therapeutic strategies Informed Consent: understands and further education needed Reason for continued inpatient stay Substantial Risk for: rapid decompensation Time Spent With Patient Time: Total time managing care of this patient today ____ minutes.
[2025-03-23] MEDS: Fluticasone/Vilanterol 200/25 BLST.W.DEV 1 PUFF INHALE (09:25)
[2025-03-23 20:30] VITALS: BP 115/66; PULSE 99; RESP 16; TEMP 36; O2SAT 99
[2025-03-24] MEDS: Fluticasone/Vilanterol 200/25 BLST.W.DEV 1 PUFF INHALE (08:53)
[2025-03-24] MEDS: Nicotine 21 MG PATCH.TD24 TRANSDERMA (08:54)
[2025-03-24 20:00] VITALS: BP 127/79; PULSE 98; RESP 17; TEMP 36.9; O2SAT 97
--- NOTE | 2025-03-24 22:25 | HO.PSYCHPN ---
Subjective Subjective Date of Service: 03/24/25 Reason For Visit: F.32 F41.9 F43.10 F60.3 Interim History: Met with patient; discussed with team Patient reports feeling better and says wears my paris? As a joke saying her paris is gone. She does remain hypomanic but definitely improved and she can tell because she is not as easily triggered and specifically she does not feel the bliss of paris, rather just feels overall happy. She says she misses the manic feelings but knows that they cause trouble for her and wants to continue with treatment. Staff reports that patient is doing better in groups, more appropriate, takes time outs as needed Mental Status Exam Mental Status Exam Narrative: Pt is alert and oriented; behavior is manic/hypomanic, can still be loud ,but more periods of calm; able to be redirected and overall friendly and cooperative; engaged in tx and calm; patient is not in distress; dressed in casual attire, glasses with good hygiene; mood is described as happy and affect congruent, still expansive; eye contact appropriate; Speech is less loud and less pressured; intermittent mild psychomotor agitation present; thought process can be goal directed and organized but is easily distracted and can get circumstantial or tangential; Thought content is on life issues, treatment, hopes/worries; hx of trauma; otherwise pertinent to relevant topics; some references to delusional ideations vs exaggerated memories; has not mentioned any delusional; no AVH; content; no more SI or HI; No AVH; does not appear to be internally pre-occupied. Patients insight and judgment impaired but improving Diagnostics Vital Signs (24Hr): Vital Signs - 24 hr 03/24/25 20:00 Temperature 98.4 F Pulse Rate 98 Respiratory Rate 17 Blood Pressure 127/79 Pulse Oximetry 97 Oxygen Delivery Method Room Air BMI result Body Mass Index 38.8 Labs 03/21/25 11:50 Medications Medications Current Medications Acetaminophen (Acetaminophen 325 Mg Tablet) 650 mg PO Q6H PRN PRN Reason: Headache/Pain, Scale 1-10 Last Admin: 03/18/25 21:39 Dose: 650 mg Al Hydroxide/Mg Hydroxide (Magnesium Hydrox/Alum Hydrox 30 Ml Oral.Susp) 30 ml PO Q6H PRN PRN Reason: Heartburn/Nausea Albuterol Sulfate (Albuterol Sulfate 90 Mcg 8 Gm Inhaler) 2 puff INHALE Q4H PRN PRN Reason: Wheezing Fluticasone/Vilanterol (Fluticasone/Vilanterol 200/25 Blst.W.Dev) 1 puff INHALE RDAILY [facility] Last Admin: 03/24/25 08:53 Dose: 1 puff Hydroxyzine HCl (Hydroxyzine Hcl 50 Mg Tablet) 50 mg PO Q6H PRN PRN Reason: mild anxiety Last Admin: 03/24/25 20:47 Dose: 50 mg Lorazepam (Lorazepam 1 Mg Tablet) 1 mg PO Q6H PRN PRN Reason: severe anxiety Last Admin: 03/24/25 20:47 Dose: 1 mg Lurasidone HCl (Lurasidone Hcl 20 Mg Tablet) 60 mg PO DAILY@1800 [facility] Last Admin: 03/24/25 17:33 Dose: 60 mg Magnesium Hydroxide (Milk Of Magnesia 30 Ml Oral.Susp) 30 ml PO DAILY PRN PRN Reason: Constipation Nicotine (Nicotine 21 Mg Patch.Td24) 21 mg TRANSDERMA DAILY [facility] Last Admin: 03/24/25 08:54 Dose: 21 mg Nicotine Polacrilex (Nicotine Polacrilex 2 Mg Gum) 4 mg BUCCAL Q2H PRN PRN Reason: Nicotine Cravings Last Admin: 03/24/25 09:16 Dose: 4 mg Olanzapine (Olanzapine 5 Mg Tablet) 5 mg PO BID PRN PRN Reason: agitation Last Admin: 03/22/25 22:16 Dose: 5 mg Oxcarbazepine (Oxcarbazepine 300 Mg Tablet) 300 mg PO BID [facility] On Hold: 03/24/25 08:00 Last Admin: 03/23/25 21:12 Dose: 300 mg Oxcarbazepine (Oxcarbazepine 300 Mg Tablet) 300 mg PO BEDTIME [facility] On Hold: 03/23/25 16:45 Last Admin: 03/22/25 22:14 Dose: 300 mg Trazodone HCl (Trazodone Hcl 50 Mg Tablet) 50 mg PO BEDTIME MRX1 PRN PRN Reason: Insomnia Last Admin: 03/24/25 20:48 Dose: 50 mg Trazodone HCl (Trazodone Hcl 50 Mg Tablet) 150 mg PO BEDTIME [facility] Last Admin: 03/24/25 20:48 Dose: 150 mg Ziprasidone (Ziprasidone 40 Mg Capsule) 40 mg PO BID [facility] Last Admin: 03/24/25 20:47 Dose: 40 mg Allergies Allergies Allergy/AdvReac Type Severity Reaction Status Date / Time latex Allergy Unknown Unknown Verified 03/18/25 19:20 Assessment & Plan Assessment & Plan (1) Bipolar disorder, curr episode mixed, severe, with psychotic features: Status: Acute Code(s): F31.64 - Bipolar disorder, current episode mixed, severe, with psychotic features (2) PTSD (post-traumatic stress disorder): Status: Acute Code(s): F43.10 - Post-traumatic stress disorder, unspecified (3) Asthma: Status: Acute Code(s): J45.909 - Unspecified asthma, uncomplicated Plan HPI: Patient is a 30 y.o [place] speaking female who presented to ED with significant disorganization, paranoid, pressure speech, and tangential thought process. [facility] staff reported escalating manic behavior including entering another resident's room, attempted to direct EMS, and making threats toward others. Recently discharge from inpatient psychiatric unit at [place] less than 48 hours. non-adherence to medication, lack of sleep for three days,recently alcohol use and increase stress related to unsafe housing. Formulation/clinical reasoning: Non compliant with meds, decompensated, presented with manic behaviors, delusions. Given hx of bipolar with psychotic feature, patient would benefit in restrictive environment for medication adjustment, stable mood and refer patient back to community. Hospital course: 03/19/25: d/t the fact that patient is scared of needles. Lithim and Depakote are not good choices for now as high on non-compliant with blood work Patient agrees to start on Trileptal. Ativan 1mg Q6 hrs PRN for sevever anxiety Latuda 60mg at 1800 with meals Risperidone 3mg at HS. 03/20/25: Patient slept for 7hours last night which is much improvement compared to the night before. Patient appears to be less agitated/irritable. More appropriate during assessment today. Make 1-2 inappropriate comment toward this provider but improved. Less racing thoughts/flight of ideas, less labile. Patient is not appropriate for psych groups as she was too disorganized during groups yesterday. She agrees to have Risperidone increased up to 5mg total/day in divided dose. Compliant with meds, tolerate well with Trileptal so far. Will continue to titrate. It seems she refused lab work. Will order for tomorrow to monitor lytes, especially Sodium as she started on Trileptal. 03/21/25: Per nursing, patient refused lab work this morning, was intrusive, had episode of light head bang yesterday and sexually inappropriate. Patient does not like needles. Discussed with patient regarding the important of getting lab work done. She states that She needs someone to play M&M song and have someone to hold on her hand while lab drawn which nursing able to accommodate to have it done this morning. Patient continues to make inappropriate comment regarding this provider clothes again your shirt color makes me feel happier . Report having 15 different feelings when asked how her mood today. Report feeling anxious. Racing thoughts, flight of ideas with manic behaviors. feel scared when I am up and being alone in my room . Patient receptive with plan of increasing Trileptal. Compliant with meds, no side effects. 03/22/25: Slept pretty well, compliant with medications. Reports mood is bored. I hate being bored. It make me angry. When I am angry I punch the wall . Patient started talking about how she has been in and out of the hospital, got a job and lose a job. They said that if I get he shot I will not be back to the hospital and here I am in the hospital again . I do not want to be here past 04[birth year] which is her birthday on that. Explained to patient that in addition to monthly injection, patient may need to take mood stabilizer for bipolar. Labile, frustrated easily, irritable, but can be happy. 03/23 Patient remains manic with which she agrees. Discussed medication options and patient does not think that Risperdal has ever done much for her. Latuda however has made a big difference in her depression and she says it is actually kept her from being suicidal and she wants to keep it. Discussing options, risks/side effects patient and patient very much wants to avoid any medications that cause weight gain; in effort to avoid getting back on Depakote, patient agrees to switch from Risperdal to Geodon to see if that can help; she also agrees to get back on Depakote, even though she hates needles, if Geodon does not work. Patient does not think Trileptal has been helpful and agrees to taper off Also discussed Intuniv, risks/side effects and she agrees to try but will hold off for now -checked QTC and WNL 03/24 Patient reports feeling better and says wears my paris? As a joke saying her paris is gone. She does remain hypomanic but definitely improved and she can tell because she is not as easily triggered and specifically she does not feel the bliss of paris, rather just feels overall happy. She says she misses the manic feelings but knows that they cause trouble for her and wants to continue with treatment. Staff reports that patient is doing better in groups, more appropriate, takes time outs as needed -despite doing better, patient does remain hypomanic/manic and very likely to have resurgence of paris if not further stabilized; very likely will need ziprasidone titrated; however hopefully this will be enough and patient will not need to be on Depakote which she very much wants to avoid -discussed risks/side effects of antipsychotic medications and being on 2 of them Plan Patient on 15 minute checks for safety. Admitted to [facility]. CV. Discontinue Risperdal; patient does not think it has helped much even though has been on and off it for years continue ziprasidone 40 mg b.i.d. with meals Continue Latuda 60 mg; this medication is not helpful for paris but has been very helpful for patient for bipolar depression Taper off Trileptal Will consider Depakote if patient mood does not stabilize Patient educated on: diagnosis, medication risk/benefits and therapeutic strategies Informed Consent: understands Reason for continued inpatient stay Substantial Risk for: rapid decompensation Time Spent With Patient Time: Total time managing care of this patient today ____ minutes.
[2025-03-25] MEDS: Fluticasone/Vilanterol 200/25 BLST.W.DEV 1 PUFF INHALE (08:29)
[2025-03-25] MEDS: Nicotine 21 MG PATCH.TD24 TRANSDERMA (08:30)
[2025-03-25 09:20] VITALS: BP 124/60; PULSE 105; RESP 16; TEMP 36.7; O2SAT 97
--- NOTE | 2025-03-25 10:50 | P.PNPSI_ITS ---
Subjective Subjective Date of Service: 03/25/25 Reason For Visit: F.32 F41.9 F43.10 F60.3 Interim History: met with patient; discussed with team pt remains manic, rambling but remains redirectable; during discussion she intermittently put's a contact acid plant operator/off her forehead that says Do not disturb.. Patient shared about upsetting event she had with her mother and daughter that was pretty upsetting and left patient feeling guilty and which was partly the reason her manic symptoms were exacerbated. Patient shared about PTSD flashbacks, rambling, sometimes slamming the table with her hands. But again remains redirectable. Patient says she is sleeping well which to her is assigned that paris is less. Discussed medication risks/side effects and she agrees to increasing Geodon; also discussed Intuniv risks/side effects and she agrees to see if that can help with anxiety Patient showed a picture she mansi of Jose and angellayo and how she feels she is in hell on earth but accepts that this is part of being human. Mental Status Exam Mental Status Exam Narrative: Pt is alert and oriented; behavior is manic/hypomanic, can still be loud and with rambling speech,but more periods of calm; able to be redirected and overall friendly and cooperative; engaged in tx and calm; patient is not in distress; dressed in casual attire, glasses with good hygiene; mood is described as anxious and affect congruent, still expansive with some lability; eye contact appropriate; Speech is overall less loud and less pressured; intermittent mild- moderate psychomotor agitation present; thought process can be goal directed and organized but is easily distracted and can get circumstantial or tangential; Thought content is on life issues, past trauma, treatment, hopes/worries; otherwise pertinent to relevant topics; no overt references to delusional ideations but perhaps misinterpreting events; has not mentioned any delusional; no AVH; content; no more SI or HI; No AVH; does not appear to be internally pre- occupied. Patients insight and judgment impaired but improving Diagnostics Vital Signs (24Hr): Vital Signs - 24 hr 03/24/25 20:00 03/25/25 09:20 Temperature 98.4 F 98.0 F Pulse Rate 98 105 H Respiratory Rate 17 16 Blood Pressure 127/79 124/60 Pulse Oximetry 97 97 Oxygen Delivery Method Room Air Room Air BMI result Body Mass Index 38.8 Labs 03/21/25 11:50 Medications Medications Current Medications Acetaminophen (Acetaminophen 325 Mg Tablet) 650 mg PO Q6H PRN PRN Reason: Headache/Pain, Scale 1-10 Last Admin: 03/18/25 21:39 Dose: 650 mg Al Hydroxide/Mg Hydroxide (Magnesium Hydrox/Alum Hydrox 30 Ml Oral.Susp) 30 ml PO Q6H PRN PRN Reason: Heartburn/Nausea Albuterol Sulfate (Albuterol Sulfate 90 Mcg 8 Gm Inhaler) 2 puff INHALE Q4H PRN PRN Reason: Wheezing Fluticasone/Vilanterol (Fluticasone/Vilanterol 200/25 Blst.W.Dev) 1 puff INHALE RDAILY [facility] Last Admin: 03/25/25 08:29 Dose: 1 puff Hydroxyzine HCl (Hydroxyzine Hcl 50 Mg Tablet) 50 mg PO Q6H PRN PRN Reason: mild anxiety Last Admin: 03/25/25 09:17 Dose: 50 mg Lorazepam (Lorazepam 1 Mg Tablet) 1 mg PO Q6H PRN PRN Reason: severe anxiety Last Admin: 03/24/25 20:47 Dose: 1 mg Lurasidone HCl (Lurasidone Hcl 20 Mg Tablet) 60 mg PO DAILY@1800 [facility] Last Admin: 03/24/25 17:33 Dose: 60 mg Magnesium Hydroxide (Milk Of Magnesia 30 Ml Oral.Susp) 30 ml PO DAILY PRN PRN Reason: Constipation Nicotine (Nicotine 21 Mg Patch.Td24) 21 mg TRANSDERMA DAILY [facility] Last Admin: 03/25/25 08:30 Dose: 21 mg Nicotine Polacrilex (Nicotine Polacrilex 2 Mg Gum) 4 mg BUCCAL Q2H PRN PRN Reason: Nicotine Cravings Last Admin: 03/25/25 09:17 Dose: 4 mg Olanzapine (Olanzapine 5 Mg Tablet) 5 mg PO BID PRN PRN Reason: agitation Last Admin: 03/22/25 22:16 Dose: 5 mg Trazodone HCl (Trazodone Hcl 50 Mg Tablet) 50 mg PO BEDTIME MRX1 PRN PRN Reason: Insomnia Last Admin: 03/24/25 20:48 Dose: 50 mg Trazodone HCl (Trazodone Hcl 50 Mg Tablet) 150 mg PO BEDTIME [facility] Last Admin: 03/24/25 20:48 Dose: 150 mg Ziprasidone (Ziprasidone 60 Mg Capsule) 60 mg PO BID@0900,1700 [facility] Allergies Allergies Allergy/AdvReac Type Severity Reaction Status Date / Time latex Allergy Unknown Unknown Verified 03/18/25 19:20 Assessment & Plan Assessment & Plan (1) Bipolar disorder, curr episode mixed, severe, with psychotic features: Status: Acute Code(s): F31.64 - Bipolar disorder, current episode mixed, severe, with psychotic features (2) PTSD (post-traumatic stress disorder): Status: Acute Code(s): F43.10 - Post-traumatic stress disorder, unspecified (3) Asthma: Status: Acute Code(s): J45.909 - Unspecified asthma, uncomplicated Plan HPI: Patient is a 30 y.o Uzbek speaking female who presented to ED with significant disorganization, paranoid, pressure speech, and tangential thought process. Residential staff reported escalating manic behavior including entering another resident's room, attempted to direct EMS, and making threats toward others. Recently discharge from inpatient psychiatric unit at [facility] less than 48 hours. non-adherence to medication, lack of sleep for three days,recently alcohol use and increase stress related to unsafe housing. Formulation/clinical reasoning: Non compliant with meds, decompensated, presented with manic behaviors, delusions. Given hx of bipolar with psychotic feature, patient would benefit in restrictive environment for medication adjustment, stable mood and refer patient back to community. Hospital course: 03/19/25: d/t the fact that patient is scared of needles. Lithim and Depakote are not good choices for now as high on non-compliant with blood work Patient agrees to start on Trileptal. Ativan 1mg Q6 hrs PRN for sevever anxiety Latuda 60mg at 1800 with meals Risperidone 3mg at HS. 03/20/25: Patient slept for 7hours last night which is much improvement compared to the night before. Patient appears to be less agitated/irritable. More appropriate during assessment today. Make 1-2 inappropriate comment toward this provider but improved. Less racing thoughts/flight of ideas, less labile. Patient is not appropriate for psych groups as she was too disorganized during groups yesterday. She agrees to have Risperidone increased up to 5mg total/day in divided dose. Compliant with meds, tolerate well with Trileptal so far. Will continue to titrate. It seems she refused lab work. Will order for tomorrow to monitor lytes, especially Sodium as she started on Trileptal. 03/21/25: Per nursing, patient refused lab work this morning, was intrusive, had episode of light head bang yesterday and sexually inappropriate. Patient does not like needles. Discussed with patient regarding the important of getting lab work done. She states that She needs someone to play [employer] song and have someone to hold on her hand while lab drawn which nursing able to accommodate to have it done this morning. Patient continues to make inappropriate comment regarding this provider clothes again your shirt color makes me feel happier . Report having 15 different feelings when asked how her mood today. Report feeling anxious. Racing thoughts, flight of ideas with manic behaviors. feel scared when I am up and being alone in my room . Patient receptive with plan of increasing Trileptal. Compliant with meds, no side effects. 03/22/25: Slept pretty well, compliant with medications. Reports mood is bored. I hate being bored. It make me angry. When I am angry I punch the wall . Patient started talking about how she has been in and out of the hospital, got a job and lose a job. They said that if I get he shot I will not be back to the hospital and here I am in the hospital again . I do not want to be here past 04[birth year]14 which is her birthday on that. Explained to patient that in addition to monthly injection, patient may need to take mood stabilizer for bipolar. Labile, frustrated easily, irritable, but can be happy. 03/23 Patient remains manic with which she agrees. Discussed medication options and patient does not think that Risperdal has ever done much for her. Latuda however has made a big difference in her depression and she says it is actually kept her from being suicidal and she wants to keep it. Discussing options, risks/side effects patient and patient very much wants to avoid any medications that cause weight gain; in effort to avoid getting back on Depakote, patient agrees to switch from Risperdal to Geodon to see if that can help; she also agrees to get back on Depakote, even though she hates needles, if Geodon does not work. Patient does not think Trileptal has been helpful and agrees to taper off Also discussed Intuniv, risks/side effects and she agrees to try but will hold off for now -checked QTC and WNL 03/24 Patient reports feeling better and says wears my paris? As a joke saying her paris is gone. She does remain hypomanic but definitely improved and she can tell because she is not as easily triggered and specifically she does not feel the bliss of paris, rather just feels overall happy. She says she misses the manic feelings but knows that they cause trouble for her and wants to continue with treatment. Staff reports that patient is doing better in groups, more appropriate, takes time outs as needed -despite doing better, patient does remain hypomanic/manic and very likely to have resurgence of paris if not further stabilized; very likely will need ziprasidone titrated; however hopefully this will be enough and patient will not need to be on Depakote which she very much wants to avoid -discussed risks/side effects of antipsychotic medications and being on 2 of them 03/25 pt remains manic, rambling but remains redirectable; during discussion she intermittently put's a contact acid plant operator/off her forehead that says Do not disturb.. Patient shared about upsetting event she had with her mother and daughter that was pretty upsetting and left patient feeling guilty and which was partly the reason her manic symptoms were exacerbated. Patient shared about PTSD flashbacks, rambling, sometimes slamming the table with her hands. But again remains redirectable. Patient says she is sleeping well which to her is assigned that paris is less. Discussed medication risks/side effects and she agrees to increasing Geodon; also discussed Intuniv risks/side effects and she agrees to see if that can help with anxiety -agrees to [facility] Patient has improved but remains manic were she to discharge today would quickly unravel and be disorganized, out of control and unsafe. Patient requires continued medication management. It still a question of whether not Geodon will prove helpful enough and whether or not she can avoid getting back on Depakote Plan Patient on 15 minute checks for safety. Admitted to . CV. Start intuniv to Increase ziprasidone 60 mg b.i.d. with meals Continue Latuda 60 mg; this medication is not helpful for paris but has been very helpful for patient for bipolar depression Dc Trileptal Discontinue Risperdal; patient does not think it has helped much even though has been on and off it for years Will consider Depakote if patient mood does not stabilize Patient educated on: diagnosis, medication risk/benefits and therapeutic strategies Informed Consent: understands and further education needed Reason for continued inpatient stay Substantial Risk for: inability to function, rapid decompensation and med/psych decompensation Time Spent With Patient Time: Total time managing care of this patient today ____ minutes.
[2025-03-25] MEDS: guanFACINE HCl ER 1 MG TAB.ER.24H PO (11:18)
[2025-03-25 20:00] VITALS: BP 138/76; PULSE 92; TEMP 37.1; O2SAT 97
[2025-03-25] MEDS: Milk of Magnesia 30 ML ORAL.SUSP PO (20:24)
[2025-03-26 08:23] VITALS: BP 113/84; PULSE 102; RESP 16; TEMP 36.4; O2SAT 97
[2025-03-26] MEDS: Fluticasone/Vilanterol 200/25 BLST.W.DEV 1 PUFF INHALE (08:27)
[2025-03-26] MEDS: guanFACINE HCl ER 1 MG TAB.ER.24H PO (08:28)
[2025-03-26] MEDS: Nicotine 21 MG PATCH.TD24 TRANSDERMA (08:29)
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
[2025-03-26 20:00] VITALS: BP 122/85; PULSE 94; RESP 16; TEMP 36.8; O2SAT 97
[2025-03-27] MEDS: guanFACINE HCl ER 1 MG TAB.ER.24H PO (08:52)
[2025-03-27] MEDS: Nicotine 21 MG PATCH.TD24 TRANSDERMA (08:55)
[2025-03-27] MEDS: Fluticasone/Vilanterol 200/25 BLST.W.DEV 1 PUFF INHALE (08:58)
[2025-03-27 20:00] VITALS: BP 125/59; PULSE 92; TEMP 36.9; O2SAT 98
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
[2025-03-28 08:00] VITALS: BP 109/81; PULSE 75; TEMP 36.4; O2SAT 99
[2025-03-28] MEDS: Fluticasone/Vilanterol 200/25 BLST.W.DEV 1 PUFF INHALE (09:06)
[2025-03-28] MEDS: guanFACINE HCl ER 1 MG TAB.ER.24H PO (09:07)
[2025-03-28] MEDS: Nicotine 21 MG PATCH.TD24 TRANSDERMA (09:07)
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
[2025-03-28 13:31] LABS: UPreg QC Valid YES
[2025-03-28 20:00] VITALS: BP 130/88; PULSE 97; TEMP 36.4; O2SAT 98
[2025-03-29 08:00] VITALS: BP 106/57; PULSE 77; RESP 16; TEMP 36.6; O2SAT 98
[2025-03-29] MEDS: Fluticasone/Vilanterol 200/25 BLST.W.DEV 1 PUFF INHALE (09:20)
[2025-03-29] MEDS: Nicotine 21 MG PATCH.TD24 TRANSDERMA (09:20)
[2025-03-29] MEDS: guanFACINE HCl ER 1 MG TAB.ER.24H PO (09:22)
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
[2025-03-29 20:00] VITALS: BP 125/66; PULSE 91; TEMP 36.5; O2SAT 98
[2025-03-30 08:00] VITALS: BP 122/81
[2025-03-30] MEDS: Nicotine 21 MG PATCH.TD24 TRANSDERMA (08:47)
[2025-03-30] MEDS: guanFACINE HCl ER 1 MG TAB.ER.24H PO (08:48)
[2025-03-30] MEDS: Fluticasone/Vilanterol 200/25 BLST.W.DEV 1 PUFF INHALE (08:49)
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
[2025-03-30 20:00] VITALS: BP 116/63; PULSE 81; RESP 16; TEMP 36.8; O2SAT 98
[2025-03-31 08:35] VITALS: BP 101/49; PULSE 73; RESP 16; TEMP 36.4; O2SAT 96
[2025-03-31] MEDS: guanFACINE HCl ER 1 MG TAB.ER.24H PO (09:13)
[2025-03-31] MEDS: Nicotine 21 MG PATCH.TD24 TRANSDERMA (09:14)
[2025-03-31] MEDS: Fluticasone/Vilanterol 200/25 BLST.W.DEV 1 PUFF INHALE (09:14)
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
[2025-03-31 14:54] VITALS: BP 105/59; PULSE 99
[2025-03-31 20:00] VITALS: BP 102/68; PULSE 86; RESP 16; TEMP 36.9; O2SAT 97
--- NOTE | 2025-04-01 | ECG_ITS ---
Test Reason : qtc check Blood Pressure : */* mmHG Vent. Rate : 87 BPM Atrial Rate : 87 BPM P-R Int : 164 ms QRS Dur : 80 ms QT Int : 370 ms P-R-T Axes : 52 37 33 degrees QTcB Int : 445 ms Normal sinus rhythm Normal ECG When compared with ECG of 23-Mar-2025 13:01, Previous ECG had lead reversal Referred By: Cheko Rai Electronically Signed By: Solomon Chadwick
[2025-04-01 08:00] VITALS: BP 117/58; PULSE 78; RESP 18; TEMP 36.4; O2SAT 98
[2025-04-01] MEDS: Nicotine 21 MG PATCH.TD24 TRANSDERMA (09:54)
[2025-04-01] MEDS: Fluticasone/Vilanterol 200/25 BLST.W.DEV 1 PUFF INHALE (09:54)
[2025-04-01] MEDS: guanFACINE HCl ER 1 MG TAB.ER.24H PO (09:54)
[2025-04-01 12:55] LABS: Ammonia 36 umol/L (13-55)
[2025-04-01 13:15] LABS: Alanine Aminotransferase 30 U/L (0-31); Albumin Level 4.6 g/dL (3.5-5.0); Aspartate Amino Transferase 18 U/L (5-31); Total Protein 7.3 g/dL (6.5-8.0)
[2025-04-01 14:33] LABS: Alkaline Phosphatase 79 U/L (39-117)
[2025-04-01 15:18] LABS: CT PCR Urine NOT DETECTED (Not Detect.); NG PCR Urine NOT DETECTED (Not Detect.)
[2025-04-01 20:00] VITALS: BP 109/73; PULSE 90; RESP 18; TEMP 36.6; O2SAT 99
[2025-04-01] MEDS: Milk of Magnesia 30 ML ORAL.SUSP PO (21:33)
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
--- NOTE | 2025-04-01 22:33 | PC.NURSE ---
Addendum entered by Maryellen Osuna RN 04/01/25 23:27: Pt report Zofran was helpful with nausea. Still feeling uncomfortable in stomach no BM yet. Original Note: Constipation Pt reporting bloating feeling of being full and a hard belly. Pt states she does not remember the last time she has had a BM. Pt reports having a very small solid stool that took a while to come out. Pt appearing uncomfortable and asking for anti-nausea meds. Pt reports hydrating appropriately. Pt had Milk of Mag , Miralax, and Gas X today for GI sx. MD paged as pt requesting something for nausea and c/o stomach discomfort. MD order PRN Zofran, Miralax, and Enema if needed. Will continue to monitor. Pt will report BM or worsening sx.
[2025-04-02 04:14] LABS: Syphilis Screen Nonreactive (Nonreactive)
[2025-04-02 05:12] LABS: HIV Num 1 0.04 S/CO (0.00-0.99)
[2025-04-02 07:00] VITALS: BMI 38.0
[2025-04-02] MEDS: Fluticasone/Vilanterol 200/25 BLST.W.DEV 1 PUFF INHALE (09:19)
[2025-04-02] MEDS: guanFACINE HCl ER 1 MG TAB.ER.24H PO (09:19)
[2025-04-02] MEDS: Nicotine 21 MG PATCH.TD24 TRANSDERMA (09:21)
[2025-04-02 09:56] VITALS: BP 105/58; PULSE 73; RESP 18; TEMP 36.4; O2SAT 98
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
[2025-04-02 20:00] VITALS: BP 105/60; PULSE 78; RESP 15; TEMP 36.9; O2SAT 98
[2025-04-03] MEDS: Nicotine 21 MG PATCH.TD24 TRANSDERMA (09:55)
[2025-04-03] MEDS: guanFACINE HCl ER 1 MG TAB.ER.24H PO (09:55)
[2025-04-03] MEDS: Fluticasone/Vilanterol 200/25 BLST.W.DEV 1 PUFF INHALE (09:56)
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
== END 2025-04-03 11:47 | disposition home or self-care (01) | DRG 753 ==
PROVIDERS: Nurse Practitioner Psychiatric/Mental Health; Admitting Provider Psychiatry & Neurology Psychiatry; PCP Family Medicine; Visit Provider Psychiatry & Neurology Psychiatry
DX: F31.64 Bipolar disorder, current episode mixed, severe, with psychotic features (principal); F17.210 Nicotine dependence, cigarettes, uncomplicated; F43.10 Post-traumatic stress disorder, unspecified; J45.909 Unspecified asthma, uncomplicated; Z71.6 Tobacco abuse counseling; Z79.899 Other long term (current) drug therapy
CPT/HCPCS: 36415; 80053; 80061; 80076; 80164; 81025; 82140; 83036; 84439; 84443; 86780; 87389; 87491; 87591; 93005

== ENCOUNTER 2025-03-18 18:38 | Outpatient (BNV) | payer MEDICAID, SELFPAY | END 2025-04-01 10:56 | PROVIDERS: Admitting Provider Psychiatry & Neurology Psychiatry; PCP Family Medicine; Visit Provider Internal Medicine Cardiovascular Disease | DX: Z13.6 Encounter for screening for cardiovascular disorders (principal) | CPT/HCPCS: 93010 ==

== ENCOUNTER 2025-03-18 18:38 | Outpatient (BNV) | payer MEDICAID, SELFPAY | END 2025-03-23 13:01 | PROVIDERS: Admitting Provider Psychiatry & Neurology Psychiatry; PCP Family Medicine; Visit Provider Internal Medicine Cardiovascular Disease | DX: R94.31 Abnormal electrocardiogram [ECG] [EKG] (principal); Z13.6 Encounter for screening for cardiovascular disorders | CPT/HCPCS: 93010 ==

== ENCOUNTER → 2025-03-18 18:38 | Outpatient (BNV) | payer MEDICAID, SELFPAY | PROVIDERS: Admitting Provider Psychiatry & Neurology Psychiatry; PCP Family Medicine; Visit Provider Nurse Practitioner Family | DX: J45.909 Unspecified asthma, uncomplicated (principal) | CPT/HCPCS: 99221 ==

== ENCOUNTER → 2025-03-18 18:38 | Outpatient (BNV) | payer MEDICAID, SELFPAY | PROVIDERS: Admitting Provider Psychiatry & Neurology Psychiatry; PCP Family Medicine; Visit Provider Nurse Practitioner Psychiatric/Mental Health | DX: F31.64 Bipolar disorder, current episode mixed, severe, with psychotic features (principal); F43.11 Post-traumatic stress disorder, acute; J45.909 Unspecified asthma, uncomplicated | CPT/HCPCS: 90792; 99231; 99232 ==